=== PATIENT | male | born 1960 | race Caucasian/White ===

== ENCOUNTER 2018-05-09 17:31 | Emergency (ER) | payer OTHER, MEDICAID ==
[2018-05-09 17:46] VITALS: BP 138/42
--- NOTE | 2018-05-09 19:36 | EDPHY ---
H & P Stated Complaint: pt dialysis pt has open ulcer l foot/sent for admission Time Seen by Provider: 05/09/18 19:23 HPI/ROS: CHIEF COMPLAINT: "Those witch doctors at [facility] suck" HISTORY OF PRESENT ILLNESS: 57-year-old male history of diabetes, chronic renal disease, Saturday dialysis, complaining of several months of chronic left heel wound. States that he is admitted at [facility] few weeks ago but left against medical advice because he did not like the care he was receiving. He went to his dialysis appointment today informs me that the staff they recommend he come to the ER for admission. Today is Saturday. He has a new patient wound care appointment with Dr. Naz Steven on Saturday. REVIEW OF SYSTEMS: 10 systems reviewed and negative with the exception of the elements mentioned in the history of present illness PAST MEDICAL & SURGICAL HISTORY: diabetes. Chronic renal disease. Saturday SOCIAL HISTORY: Nonsmoker PHYSICAL EXAM (Prior to examination, patient consented to physical exam, hands were washed and my usual and customary physical exam procedures followed) 1) GENERAL: Well-developed, well-nourished, alert and oriented. Appears to be in no acute distress. 2) HEAD: Normocephalic, atraumatic 3) HEENT: Pupils equal, round, reactive to light bilaterally. Sclera anicteric. Nasopharynx, oropharynx, clear, no lesions. 4) NECK: Full range of motion, no meningeal signs. 5) LUNGS: Clear auscultation bilaterally, no wheezes, no rhonchi, no retractions. 6) HEART: Regular rate and rhythm, no murmur, no heave, no gallop. 7) ABDOMEN: No guarding, no rebound, no focal tenderness, negative McBurney's, negative Dee's, negative Rovsing's, negative peritoneal sign, 8) MUSCULOSKELETAL: Moving all extremities, no focal areas of tenderness, no obvious trauma. No peripheral edema or discoloration. 9) BACK: No CVA tenderness, no midline vertebral tenderness, no fluctuance, no step-off, no obvious trauma, no visual or palpable abnormality. 10) SKIN: No rash, no petechiae. 11) Psychiatric: Patient is oriented X 3, there is no agitation. DIFFERENTIAL DIAGNOSIS: In no particular order including but not limited to cellulitis, necrotizing fasciitis, osteomyelitis, - Personal History Current Tetanus Diphtheria and Acellular Pertussis (TDAP): Yes - Medical/Surgical History Hx Asthma: No Hx Chronic Respiratory Disease: Yes Hx Diabetes: No Hx Cardiac Disease: Yes Hx Renal Disease: Yes Hx Cirrhosis: No Hx Alcoholism: No Hx HIV/AIDS: No Hx Splenectomy or Spleen Trauma: No Other PMH: cardiac bypass/renal failure/blind - Social History Smoking Status: Current every day smoker Constitutional: Initial Vital Signs Temperature (C) 36.6 C 05/09/18 17:42 Heart Rate 81 05/09/18 17:42 Respiratory Rate 18 05/09/18 17:42 Blood Pressure 138/42 H 05/09/18 17:42 O2 Sat (%) 95 05/09/18 17:42 O2 Delivery Mode Room Air Allergies/Adverse Reactions: No Known Allergies Allergy (Unverified 05/09/18 17:41) Home Medications: Medication Instructions Recorded Albuterol 05/09/18 Atorvastatin Calcium 05/09/18 Carvedilol 05/09/18 Gabapentin 05/09/18 Glipizide 05/09/18 Lisinopril 05/09/18 Nitroglycerin 05/09/18 Phoslyra 05/09/18 Sertraline HCl 05/09/18 traZODone 05/09/18 Medical Decision Making ED Course/Re-evaluation: 7:56 p.m.: Patient was also seen exam by Dr. Adrianna Fernández in the ER. He has a chronic wound to his left heel which does not appear to be acutely infected. There is no crepitus or cellulitic changes. Doubt necrotizing fasciitis. He is able to bear weight. He is hemodynamically stable, afebrile denies flu-like symptoms. At this time I do not identify indication for hospital admission. I do not identify indication for antibiotics as there is no sign I have recommended he follow up with Dr. Naz Steven on Saturday (today is Saturday) for his wound care appointment. My Usual and customary discharge precautions and instructions provided Departure - Departure Disposition: Home, Routine, Self-Care Clinical Impression: Chronic wound left heel Condition: Good Instructions: Chronic Wounds (ED) Additional Instructions: Return to the ER if you develop redness, swelling, discharge, warmth to the wound, red streaks going up your leg, or any other symptoms that concern you. Referrals: Naz Steven MD [Medical Doctor] - 05/12/18 (Keep your appointment with Dr. Naz Steven on Saturday)
== END 2018-05-09 20:41 | disposition home or self-care (01) ==
DX: S91.302A Unspecified open wound, left foot, initial encounter (principal); E11.9 Type 2 diabetes mellitus without complications; N18.9 Chronic kidney disease, unspecified; Z99.2 Dependence on renal dialysis

== ENCOUNTER 2018-05-14 10:59 | Inpatient (IN) | payer OTHER, MEDICAID ==
--- NOTE | 2018-05-14 11:58 | EDPHY ---
H & P Stated Complaint: l foot ulcer states wassent for abx admission Source: Patient, Old records Exam Limitations: No limitations - Personal History Current Tetanus Diphtheria and Acellular Pertussis (TDAP): Yes - Medical/Surgical History Hx Asthma: No Hx Chronic Respiratory Disease: Yes Hx Diabetes: No Hx Cardiac Disease: Yes Hx Renal Disease: Yes Hx Cirrhosis: No Hx Alcoholism: No Hx HIV/AIDS: No Hx Splenectomy or Spleen Trauma: No Other PMH: cardiac bypass/renal failure/blind. dialysis - Social History Smoking Status: Current every day smoker Time Seen by Provider: 05/14/18 11:58 HPI/ROS: HPI: This is a 57-year-old male who presents with Chief Complaint: Left foot ulcer Location: Left foot Quality: Ulcer Duration: Several weeks Signs and Symptoms: No bleeding, no radiation, no numbness, no weakness, no tingling, no incontinence, no decreased range of motion, no swelling, + pain, no fever Timing: Acute Severity: Moderate Context: Patient has a history of diabetes mellitus, chronic renal disease, on dialysis Saturday presents with several month history of chronic left heel ulceration that is nonhealing despite admission at [facility] a few weeks ago and being seen by the wound clinic on Saturday. He also has a wound clinic nurse that comes to his house Saturday, Saturday, Saturday. Patient reports that there is increased pain in his left heel with odor and drainage. He is unable to bear weight on his left foot due to the pain. Had dialysis on Saturday due to wound appointment on Saturday and missing dialysis then. Denies shortness of breath. Modifying Factors: Local wound care Comment: ROS: A comprehensive 10 system review of systems is otherwise negative aside from elements mentioned in the history of present illness. MEDICAL/SURGICAL/SOCIAL HISTORY: Medical history: cardiac bypass/renal failure/blind, dialysis Surgical history: Denies Social history: Current every day smoker. CONSTITUTIONAL: Nontoxic-appearing elderly, tearful white male, awake and alert , no obvious distress HEENT: Atraumatic and normocephalic. NECK: supple Cardiovascular: Normal S1/S2, regular rate, regular rhythm, without murmur rub or gallop. PULMONARY/CHEST: Symmetrical and nontender. Clear to auscultation bilaterally. Good air movement. No accessory muscle usage. ABDOMEN: Soft, nondistended, nontender. EXTREMITIES: 2/2 pedal pulses, strength 5/5, left heel shows approximately 4 in annular macerated; malodorous; ulceration approximately stage 2-3; extremely tender to palpation. Decreased light touch sensation. no deformities, no clubbing, no cyanosis or edema. NEUROLOGICAL: no focal neuro deficits. GCS 15. Light touch sensation intact. SKIN: Warm and dry, no erythema. no rash. Good capillary refill. (Aby Hardy) Constitutional: Initial Vital Signs Temperature (C) 37 C 05/14/18 11:05 Heart Rate 72 05/14/18 11:05 Respiratory Rate 18 05/14/18 11:05 Blood Pressure 121/62 H 05/14/18 11:05 O2 Sat (%) 92 05/14/18 11:05 O2 Delivery Mode Room Air Allergies/Adverse Reactions: No Known Allergies Allergy (Verified 05/14/18 11:04) Home Medications: Medication Instructions Recorded Albuterol [Proventil Inhaler HFA 1 - 2 puffs IH DAILY PRN 05/09/18 (*)] Atorvastatin Calcium [Lipitor 40 40 mg PO DAILY 05/09/18 mg (*)] Calcium Acetate [Phoslyra] 667 mg PO TIDMEAL 05/09/18 Carvedilol [Coreg (*)] 6.25 mg PO BIDMEAL 05/09/18 Gabapentin [Neurontin 300 MG (*)] 300 mg PO BID PRN 05/09/18 Lisinopril [Zestril 10 mg (*)] 10 mg PO DAILY 05/09/18 Nitroglycerin [Nitrostat 0.4 mg 0.4 mg SL Q5M PRN 05/09/18 (*)] Sertraline HCl [Zoloft 50mg (*)] 50 mg PO DAILY 05/09/18 glipiZIDE [Glucotrol] 10 mg PO BID 05/09/18 traZODone [traZODONE 50MG (*)] 50 mg PO HS 05/09/18 Acetaminophen [Tylenol 325mg (*)] 325 mg PO DAILY PRN 05/14/18 Aspirin [Aspirin 81mg (*)] 81 mg PO DAILY 05/14/18 Medical Decision Making ED Course/Re-evaluation: Vital signs obtained and stable. IV access and laboratory studies ordered along with left foot x-ray Given IV morphine 4 mg and 1 g Ancef Reluctant to give vancomycin with end-stage renal disease. ED decision to consult General surgery for IV antibiotics and determine candidacy for debridement. Patient will likely need inpatient admission due to failure of outpatient treatment. X-ray my read shows no signs of osteomyelitis. 1215: Labs reviewed. WBC 15 K with left shift, H&H 7.8/23.2 normocytic type, K 4.1, creatinine 4.3, elevated LFTs 1230: ED decision to consult for admission. Spoke with Dr. León who kindly agrees to admit patient and provide further care. Spoke with hospitalist, Dr. Nagel and Vehicle Fuel Systems Converter, Dr. Treviño, who will consult on the patient. No signs of neurovascular compromise/tenting of skin/compartment syndrome/ extremities and joints examined above and below area of concern and are neurovascularly intact. This patient was seen under the supervision of my secondary supervising physician. I evaluated care for this patient independently. Discussed this patient with Dr. Florentino. (Aby Hardy) Differential Diagnosis: Differential diagnosis includes but is not limited to diabetic ulcer, osteomyelitis, (Aby Hardy) Other Provider: The patient was evaluated and managed by the Physician Junior Java Developer. I discussed the patient's presentation and course with the midlevel provider with them and agree with the evaluation. My co-signature indicates that I have reviewed this chart and I agree with the findings and plan of care as documented. I am the secondary supervising physician. (Jennifer Florentino) - Data Points Laboratory Results: Laboratory Results 05/14/18 13:26 05/14/18 12:55 Medications Given: Atorvastatin Calcium (Lipitor) 40 mg PO DAILY [facility] Stop: 11/11/18 08:59 Last Admin: 05/15/18 08:02 Dose: 40 mg Calcium Acetate (Phoslo) 667 mg PO TIDMEAL [facility] Stop: 11/11/18 07:59 Last Admin: 05/15/18 13:46 Dose: Not Given Carvedilol (Coreg) 6.25 mg PO BIDMEAL [facility] Stop: 11/10/18 17:59 Last Admin: 05/15/18 07:56 Dose: 6.25 mg Hydromorphone HCl (Dilaudid) 0.5 - 1 mg IVP Q2HRS PRN PRN Reason: Pain, Severe Stop: 05/24/18 18:28 Last Admin: 05/15/18 11:37 Dose: 0.5 mg Insulin Human Lispro (Humalog Lispro) 0 unit SC TIDMEAL LAITH PRN Reason: Protocol Stop: 11/10/18 17:59 Last Admin: 05/15/18 13:46 Dose: Not Given Lisinopril (Zestril) 10 mg PO DAILY [facility] Stop: 11/11/18 08:59 Last Admin: 05/15/18 08:02 Dose: 10 mg Morphine Sulfate (Morphine) 1 mg IVP Q4HRS PRN PRN Reason: breakthrough pain Stop: 05/25/18 12:52 Last Admin: 05/15/18 13:28 Dose: 1 mg Nicotine (Nicoderm Cq) 21 mg TD HS [facility] Stop: 11/10/18 20:59 Last Admin: 05/14/18 20:17 Dose: 21 mg Oxycodone HCl (Oxycodone Ir) 5 - 10 mg PO Q3HRS PRN PRN Reason: Pain, Severe Able to Take PO Stop: 05/24/18 18:28 Last Admin: 05/15/18 06:21 Dose: 10 mg Sertraline HCl (Zoloft) 50 mg PO DAILY [facility] Stop: 11/11/18 08:59 Last Admin: 05/15/18 08:02 Dose: 50 mg Trazodone HCl (Trazodone) 50 mg PO HS [facility] Stop: 11/10/18 20:59 Last Admin: 05/14/18 20:30 Dose: 50 mg Discontinued Medications Albuterol (Proventil Neb) 3 ml IH Q10M PRN PRN Reason: PACU, Wheezing Stop: 05/15/18 11:22 Last Admin: 05/15/18 10:25 Dose: 3 ml Bupivacaine HCl (Sensorcaine 0.5% Vial) Confirm Administered Dose 30 ml .ROUTE .STK-MED ONE Stop: 05/15/18 08:44 Last Admin: 05/15/18 09:42 Dose: 30 ml Hydromorphone HCl (Dilaudid) 1 mg IVP EDNOW ONE Stop: 05/14/18 14:21 Last Admin: 05/14/18 14:21 Dose: 1 mg Sodium Chloride (Ns) 1,000 mls @ 0 mls/hr IV ONCE ONE; Wide Open PRN Reason: Protocol Stop: 05/14/18 12:15 Last Admin: 05/14/18 12:42 Dose: 1,000 mls Cefazolin Sodium/Dextrose (Ancef 1 Gm (Premix)) 50 mls @ 200 mls/hr IV EDNOW ONE PRN Reason: Protocol Stop: 05/14/18 14:12 Last Admin: 05/14/18 14:05 Dose: 50 mls Ertapenem 1 gm/ Sodium (Chloride) 100 mls @ 200 mls/hr IV DAILY [facility]ITH PRN Reason: Protocol Stop: 06/13/18 16:44 Last Admin: 05/15/18 08:00 Dose: 100 mls Midazolam HCl (Versed) 2 mg IVP ONCALL ONE Stop: 05/15/18 09:03 Last Admin: 05/15/18 09:10 Dose: 2 mg Miscellaneous Medication (Non-Formulary) 667 ea PO TIDMEAL LAITH Stop: 11/10/18 17:59 Last Admin: 05/14/18 20:30 Dose: Not Given Morphine Sulfate (Morphine) 4 mg IVP EDNOW ONE Stop: 05/14/18 12:21 Last Admin: 05/14/18 13:13 Dose: 4 mg Departure - Departure Disposition: [facility] Acute Clinical Impression: ESRD on dialysis, Elevated LFTs Diabetic ulcer of left foot associated with secondary diabetes mellitus Qualifiers: Diabetic foot ulcer location: heel Non-pressure ulcer stage: with muscle involvement without evidence of necrosis Qualified Code(s): E08.621 - Diabetes mellitus due to underlying condition with foot ulcer Decubitus ulcer of foot, stage 3 Qualifiers: Laterality: left Qualified Code(s): L89.893 - Pressure ulcer of other site, stage 3 Condition: Fair
[2018-05-14] MEDS ORDERED: NS 1,000 ML IV ONE (12:14)
[2018-05-14 13:43] LABS: PLATELET COUNT 480 10^3/uL (150-400)
[2018-05-14] MEDS ORDERED: D50W 25 GM/50 ML SYR IVP PRN (14:18)
[2018-05-14] MEDS ORDERED: HYDROmorphONE/DILAUDID 1 MG/ML INJ ONE (14:18)
[2018-05-14] MEDS ORDERED: ALBUTEROL 60 PUFFS/8 GM MDI IH PRN (14:18)
[2018-05-14] MEDS ORDERED: HYDROmorphONE/DILAUDID 1 MG/ML INJ IVP ONE (14:20)
--- NOTE | 2018-05-14 16:17 | PDCONSULT ---
<Nichole Stoddard - Last Filed: 05/14/18 16:50> Medical Accounts Receivable Specialist Note: CC: Left foot wound HPI 57 y/o male with a complicated history including ESRD on dialysis, COPD, and diabetes presents to the ED d/t unhealing left diabetic foot wound. Hospital medicine team has been asked to consult for his diabetes. This is my first encounter with the patient. He reports months worth of "dealing" with his foot wound with no resolution. + increase in pain and inability to put weight on his left leg. The eschar- appearing wound is on his heel. I did not find it to be odorous or draining. He does have another pressure ulcer on top of the foot which he reports was from his bed. This appears edematous and erythematous, no noted drainage but has the appearance of possible stage 2 ulcer. Denies fevers, chills, diarrhea, N/V. He still has the ability to urinate and reports urinating "buckets." He followed up with Dr. Naz Steven about his wound on Saturday and because he missed his dialysis Saturday, he was dialyzed Saturday. He is here today because the pain has increased and his wound is not healing. In regards to his diabetes, his last A1c was in March 2018 at [facility]. It was 8.2% and the pt reports that is the lowest it has been for him. He is usually in 10-11% range. Past Medical/Surgical History: 1. ESRD (on dialysis, MWF) 2. Glaucoma 3. Blindness (left eye blind, right eye 20% vision) 4. Diabetes 5. CAD 6. Heart Failure 7. MT x 3 (triple bypass in 2013) 8. Hx of CVA x 2 9. Depression 10. Anxiety 11. Nicotine dependence 12. 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 He lives in [place] with a friend who he considers his airplane coverer. He smokes 2 cigarettes/day down from a pack and a half. He has been sober for 6 years. He smokes cannabis as well. Denies any other illicit drug use. One month prior, he had to "pull the plug" on his aunt who was "pretty much my mom." He is visibly emotional. Vital Signs 121/62, 72 HR, 18 Respirations, 37c temperature, 92% RA. ROS 10 pt was reviewed and negative except for what was stated in HPI and below: Constitutional/Subjective: "Stress, all I've got is stress!" EENMT: blindness Cardiac: no symptoms Respiratory: no symptoms Gastrointestinal: no symptoms Genitourinary: no symptoms Muscoloskeletal: no symptoms Skin: lesions Neurological: anxiety, depressed, pre-existing deficit Hematologic/Lymphatic: no symptoms Immunologic/Allergy: NKDA Physical Exam Constitutional: no apparent distress, cooperative, pleasant Eyes: Right eye pupil 3mm, left eye opaque. EOMI. Ears, nose, mouth, throat: moist mucous membranes, ears appear normal, hearing normal Cardiovascular: RR, no murmur, rub or gallop. Peripheral pulses: RLE pedal 2+, LLE pedal 1+, BUE radial 2+ Respiratory: No respiratory distress, no rales or rhonchi, CTAB Gastrointestinal: Normoactive bowel sounds, round soft non-tender Genitourinary: no bladder fullness, tenderness Skin: noted in HPI Musculoskeletal: Full ROM in all extremities Neurologic: Numbness BLE but still has tactile sensation, paresthesia BUE, CN II -XII Psychiatric: A&Ox3, depressed Lymph/Heme/Immunologic: no cervical LAD, no supraclavicular LAD A/P 57 y/o with ESRD, diabetes and extensive vascular history requires assistance with his unhealing foot wound. Normal dialysis schedule is . He was dialyzed yesterday (Saturday) d/t missing his Saturday dialysis. We are following him for diabetes management. Dr. León and Dr. Treviño have been consulted and aware of pt's presence and condition. We will hold glipizide and place him on an insulin scale, which pt is agreement with. Continue to monitor at this time. Awaiting surgical recommendations. Manage pain IV/PO PRN. <Denver Nagel - Last Filed: 05/14/18 21:27> Medical Accounts Receivable Specialist Note: Patient evaluated by myself independently, please see separate note for details. Care plan reviewed with ANGELO Stoddard, agree with her plan as outlined above.
[2018-05-14] MEDS: ERTAPENEM 1 GM in NS 100 ML IV SCH (17:28)
[2018-05-14] MEDS ORDERED: [UNRECOGNIZED DRUG - OTHER] PO SCH (18:00)
[2018-05-14] MEDS ORDERED: CALCIUM ACETATE PO SCH (18:00)
--- NOTE | 2018-05-14 18:18 | GHP ---
DATE OF ADMISSION: 05/14/2018 HISTORY OF PRESENT ILLNESS: Patient is a 57-year-old diabetic male who presents with complaints of s evere pain and nonhealing of a left heel ulceration, which is approximately 3 cm in diameter. He has been treated in multiple wound clinics with very little improvement in the wound and complains of tr emendous pain at this time. He has had no fever. He does have diabetic neuropathy. He does have am azingly good pulses. Admitted at this time because of degradation of the wound and failure to improv e on outpatient therapy. PAST MEDICAL HISTORY: Includes diabetes, end-stage renal disease for which he is on dialysis, glauco ma, blindness, coronary artery disease, congestive heart failure, coronary artery bypass, multiple CO s, history of stroke x2, COPD, depression. FAMILY HISTORY: Noncontributory. MEDICATIONS: Include Lipitor, Proventil, , Coreg, Zestril, Neurontin, aspirin, trazodone, Glucotrol, Zoloft, Nitrostat, and Tylenol. ALLERGIES: None. PHYSICAL EXAMINATION: GENERAL: An alert 57-year-old male in no acute distress. He is afebrile. HE AD/NECK: Reveals no icterus or adenopathy. Pupils are reactive. No oral lesions. No bruits. He i s nearly blind. CARDIAC: Regular rhythm without murmurs. CHEST: Clear to auscultation, percussion . ABDOMEN: Soft, nontender, without masses or organomegaly. GENITOURINARY: Normal. EXTREMITIES: Reveal full range of motion. He has pedal pulses. On his right foot, he has a 3 cm medial posterio r pressure sore, but no bone exposed. He also has a small lesion on the dorsum of his same foot, whi ch is approximately 1-1/2 cm in diameter. NEUROLOGIC: Physiologic. PSYCH: Appears to be alert, or iented, and somewhat cooperative. IMPRESSION: Diabetic neuropathy and peripheral vascular disease with neuropathic ulcer of the right foot over the heel and wound over the dorsum of the foot. PLAN: Admit for hospitalist's evaluation, IV antibiotics, local wound care, and vascular evaluation. /[id number]/MODL
[2018-05-14] MEDS: CARVEDILOL 6.25 MG TAB PO SCH (18:19)
[2018-05-14] MEDS: INSULIN LISPRO 100 UNIT/ML SC SCH (18:19)
[2018-05-14] MEDS ORDERED: ACETAMINOPHEN 325 MG TAB PO PRN (18:29)
[2018-05-14] MEDS ORDERED: HYDROCODONE/APAP 5/325 TAB PO PRN (18:29)
[2018-05-14] MEDS: oxyCODONE IR 5 MG TAB PO PRN ×2 (19:50→21:03)
[2018-05-14] MEDS: NICOTINE 21 MG/24 HR PATCH TD SCH (20:17)
[2018-05-14] MEDS: traZODone 50 MG TAB PO SCH (20:30)
--- NOTE | 2018-05-14 21:04 | GCON ---
DATE OF CONSULTATION: 05/14/2018 REASON FOR CONSULTATION: Opinion regarding end-stage kidney failure. HISTORY OF PRESENT ILLNESS: Mr. Iraheta is a 57-year-old gentleman with end-stage kidney failure due t o diabetes, hypertension, and vascular disease, on 3 times weekly hemodialysis in the [facility] under the care of Dr. Pat Smith. Mr. Iraheta has been at the dialysis unit f or about 5 months. About 5 months ago as he was leaving his home in [place], he fell down a flight of stairs, injuring his right heel. Subsequently, the ulcer grew and has subsequently become infected. He is under the care of Dr. Moreno with Surgery. She asked him to come in for IV antibiotics and po ssible debridement. Mr. Iraheta arrived this morning. His only complaint tonight is that he needs a regular diet and not a renal diet. He has not had feve rs, chills, nausea, vomiting, chest pain. Does have chronic shortness of breath with occasional coug h. No sputum production. No hemoptysis, hematemesis, epistaxis, abdominal pain, diarrhea, constipat ion, melena or hematochezia. He still makes a fair amount of urine. No gross hematuria or dysuria. He dialyzes on Mondays, Wednesdays, and Fridays. CURRENT MEDICATIONS: Include: 1. Coreg 6.25 mg twice daily. 2. Lipitor 40 mg daily. 3. [place] 5/325. 4. Ertapenem 1 g daily. 5. Lisinopril 10 mg daily. 6. Insulin. 7. Gabapentin 300 mg twice daily. 8. Nicoderm 21 mg a day. 9. Zoloft 50 mg a day. 10. Trazodone 50 mg a day. PAST MEDICAL HISTORY: Significant for: 1. End-stage kidney failure, on 3 times weekly dialysis. 2. Diabetes mellitus, type 2 for about 40 years. 3. Hypertension. 4. Blind in his left eye, only about 20% vision in his right. 5. Hyperlipidemia. 6. Coronary artery disease. 7. Status post coronary artery bypass grafting. 8. Congestive heart failure. 9. History of stroke. 10. COPD. 11. Peripheral vascular occlusive disease. ALLERGIES: None. FAMILY HISTORY: Positive for diabetes and coronary artery disease. SOCIAL HISTORY: He is not . He smokes 2 cigarettes a day, down from a pack and half a day, h as not used alcohol for a number of years. Does use occasional cannabis. REVIEW OF SYSTEMS: A complete 12-point review of systems was performed with the pertinent positives and negatives as per the previous sections. PHYSICAL EXAMINATION: VITAL SIGNS: Blood pressure 152/88, pulse 80, respirations 20, temperature is 36.9. GENERAL: He is awake, alert, frustrated and tearful. HEENT: Right pupil is reactive to lig ht. Extraocular movements are intact. Mucous membranes are moist. NECK: No lymphadenopathy or thy romegaly. HEART: Regular, grade 1/6 systolic murmur. No rub. No S3. LUNGS: No rales, rhonchi, o r wheezes. He has decreased air movement in his bases bilaterally. ABDOMEN: Bowel sounds are posit katie. Soft, nontender, nondistended. No obvious organomegaly, masses, or bruits. Chest has a tunnel ed dialysis catheter in his right internal jugular vein. EXTREMITIES: Trace edema. No cyanosis or clubbing. His right foot is wrapped. NEUROLOGIC: No asterixis. SKIN: Changes of arterial and elle ous insufficiency in his lower extremities bilaterally. LYMPH: No palpable lymphadenopathy or lymph edema. MUSCULOSKELETAL: His foot is quite sore. LABORATORY: Serum sodium 134, potassium 4.1, chloride 97, CO2 23, BUN 46, creatinine 4.3, glucose 15 1, calcium 7.9, total bilirubin of 0.8, AST 91, ALT 136, alkaline phosphatase 449, albumin 3.3. WBC 14.97, hemoglobin 7.8, hematocrit 23.2, platelet count 480,000. IMPRESSION: 1. End-stage kidney failure, on 3 times weekly hemodialysis, generally Saturday, Saturday, and Saturday . However, he had his dialysis yesterday. We will plan on Saturday, , and Saturday of this w t[place] & [place]. 2. Foot wound, likely infected. He is on ertapenem a gram daily. With his renal function, probably 500 mg daily would be adequate and decrease the side effect profile. 3. Surgery is following. 4. He wants to be on a regular diet. I think that is fine. He is on a regular diet at home and see ms to do quite well with that. Continue his other therapies. Thank you for allowing me to participate in the care of your patient, Mateusz Iraheta. If there are any questions, please do not hesitate to contact us. We will be following along with you. /[id number]/MODL
--- NOTE | 2018-05-14 21:26 | HOSPPROG ---
Hospitalist Progress Note Assessment/Plan: 57 yo M with hx of DM, ESRD admitted to surgery for DM foot ulcer, medicine consultation at request of Dr. León for evaluation and management of DM and other chronic medical issues # DM left foot ulcer: personally reviewed xray of foot without e/o osteo, admitted to surgical service for likely debridement and IP management of wound, started on ertapenem by surgery and will follow up cultures if patient taken to OR # DM: per patient most recently A1c of 8 recently, currently sugars relatively well controlled, will start SSI and hold oral hypoglycemics given likely need for surgery and NPO status # ESRD: patient currently off his usual schedule of MWF, skipped Saturday due to doctor visit and went Saturday instead, renal consulted # CAD: with hx of ME/CABG, no current chest pain, will resume home meds but hold asa for now in case surgery needed # hx of CVA # copd: without e/o acute exacerbation # anemia: presumably due to anemia of ckd, baseline unknown, will trend # Patient new to my care. Old records reviewed and summarized as above. Care plan reviewed with ANGELO Stoddard, please see her H&P for further details. Objective: Vital Signs Temp Pulse Resp BP Pulse Ox 36.8 C 73 18 159/84 H 90 L 05/14/18 19:52 05/14/18 19:52 05/14/18 19:52 05/14/18 19:52 05/14/18 19:52 05/13/18 05/14/18 05/15/18 05:59 05:59 05:59 Intake Total 1030 Balance 1030 ICD10 Worksheet Patient Problems: Problems Problem Status Onset Diabetic ulcer of left foot associated with secondary diabetes mellitus Acute Decubitus ulcer of foot, stage 3 Acute ESRD on dialysis Acute Elevated LFTs Acute
[2018-05-15 04:54] LABS: PLATELET COUNT 504 10^3/uL (150-400)
[2018-05-15] MEDS: oxyCODONE IR 5 MG TAB PO PRN (06:21)
[2018-05-15] MEDS: CARVEDILOL 6.25 MG TAB PO SCH ×2 (07:56→18:46)
[2018-05-15] MEDS: INSULIN LISPRO 100 UNIT/ML SC SCH ×3 (07:56→18:48)
[2018-05-15] MEDS: CALCIUM ACETATE 667 MG CAP PO SCH ×3 (07:56→18:48)
[2018-05-15] MEDS: ERTAPENEM 1 GM in NS 100 ML IV SCH (08:00)
[2018-05-15] MEDS: LISINOPRIL 10 MG TAB PO SCH (08:02)
[2018-05-15] MEDS: SERTRALINE HCL 50 MG TAB PO SCH (08:02)
[2018-05-15] MEDS: ATORVASTATIN CALCIUM 40 MG TAB PO SCH (08:02)
[2018-05-15] MEDS ORDERED: BUPIVACAINE 0.5% 30 ML SDV ONE (08:43)
[2018-05-15] MEDS ORDERED: NICOTINE 21 MG/24 HR PATCH TD SCH (09:00)
[2018-05-15] MEDS ORDERED: MIDAZOLAM 2 MG/2 ML VIAL IVP ONE (09:02)
[2018-05-15] MEDS ORDERED: MIDAZOLAM 2 MG/2 ML VIAL ONE (09:05)
[2018-05-15] MEDS ORDERED: PROPOFOL 200 MG/20 ML VIAL ONE (09:10)
[2018-05-15] MEDS ORDERED: fentaNYL 250 MCG/5 ML INJ ONE (09:10)
[2018-05-15] MEDS ORDERED: DEXAMETHASONE 4 MG/ML VIAL ONE (09:29)
[2018-05-15] MEDS ORDERED: LIDOCAINE 2% 5 ML SDV ONE (09:29)
[2018-05-15] MEDS ORDERED: ONDANSETRON 4 MG/2 ML VIAL ONE (09:29)
--- NOTE | 2018-05-15 09:39 | PDANEPAE ---
ANE Past Medical History - Cardiovascular History Hx Hypertension: Yes Hx Arrhythmias: No Hx Chest Pain: Yes Hx Coronary Artery / Peripheral Vascular Disease: Yes Hx CHF / Valvular Disease: Yes - Pulmonary History Hx COPD: Yes Hx Asthma/Reactive Airway Disease: No Hx Recent Upper Respiratory Infection: No Hx Oxygen in Use at Home: Yes O2 in Use at Home (L/minute): 2 Hx Sleep Apnea: No Sleep Apnea Screening Result - Last Documented: Positive - Endocrine History Hx Diabetes: Yes Hypothyroid: No Hyperthyroid: No Obesity: yes, moderate Endocrine History Comment: DM type II - Renal History Hx Renal Disorders: Yes Renal History Comment: ESRD on dialysis 3 times/week. Last dialysed 2 days ago - Liver History Hx Hepatic Disorders: Yes Hepatic History Comment: elevated LFTs - Chronic Pain History Chronic Pain: No ANE Review of Systems Review of Systems: ANE Patient History - Allergies Allergies/Adverse Reactions: No Known Allergies Allergy (Verified 05/14/18 11:04) - Home Medications Home Medications: Albuterol [Proventil Inhaler HFA (*)] 1 - 2 puffs IH DAILY PRN 05/09/18 [Last Taken Unknown] Atorvastatin Calcium [Lipitor 40 mg (*)] 40 mg PO DAILY 05/09/18 [Last Taken ] Calcium Acetate [Phoslyra] 667 mg PO TIDMEAL 05/09/18 [Last Taken 05/13/18 18:00 ] Carvedilol [Coreg (*)] 6.25 mg PO BIDMEAL 05/09/18 [Last Taken 05/13/18 18:00] Gabapentin [Neurontin 300 MG (*)] 300 mg PO BID PRN 05/09/18 [Last Taken ] Lisinopril [Zestril 10 mg (*)] 10 mg PO DAILY 05/09/18 [Last Taken 05/14/18] Nitroglycerin [Nitrostat 0.4 mg (*)] 0.4 mg SL Q5M PRN 05/09/18 [Last Taken Unknown] Sertraline HCl [Zoloft 50mg (*)] 50 mg PO DAILY 05/09/18 [Last Taken 05/13/18] glipiZIDE [Glucotrol] 10 mg PO BID 05/09/18 [Last Taken 05/13/18 21:00] traZODone [traZODONE 50MG (*)] 50 mg PO HS 05/09/18 [Last Taken 05/13/18] Acetaminophen [Tylenol 325mg (*)] 325 mg PO DAILY PRN 05/14/18 [Last Taken Unknown] Aspirin [Aspirin 81mg (*)] 81 mg PO DAILY 05/14/18 [Last Taken 05/13/18] - NPO status NPO Since - Liquids (Date): 05/15/18 NPO Since - Liquids (Time): 08:00 NPO Since - Solids (Date): 05/14/18 NPO Since - Solids (Time): 01:00 - Smoking Hx Smoking Status: Current every day smoker ANE Labs/Vital Signs - Labs Result Diagrams: 05/15/18 04:18 05/15/18 04:18 - Vital Signs Blood Pressure: 159/100 Heart Rate: 72 Respiratory Rate: 20 O2 Sat (%): 96 Height: 172.72 cm Weight: 90 kg ANE Physical Exam - Airway Neck exam: decreased ROM Mallampati Score: Class 2 Mouth exam: poor dentition - Pulmonary Pulmonary: reduced air movement - Cardiovascular Cardiovascular: regular rate and rhythym - ASA Status ASA Status: III ANE Anesthesia Plan Anesthesia Plan: general endotracheal anesthesia Urgent/Emergent Case: Delmis blanco completed preop but documented later for safe timely pt care
[2018-05-15] MEDS ORDERED: ePHEDrine SULFATE 25 MG/5 ML SYR ONE (09:47)
[2018-05-15] MEDS ORDERED: SUGAMMADEX SODIUM 200 MG/2 ML VIAL IVP ONE (10:01)
[2018-05-15] MEDS ORDERED: ONDANSETRON 4 MG/2 ML VIAL IVP PRN (10:15)
[2018-05-15] MEDS ORDERED: PROMETHAZINE HCL 25 MG/ML INJ IVP PRN (10:15)
[2018-05-15] MEDS ORDERED: NALOXONE HCL 0.4 MG/ML INJ IVP PRN (10:15)
[2018-05-15] MEDS ORDERED: fentaNYL 100 MCG/2 ML INJ IVP PRN (10:15)
[2018-05-15] MEDS ORDERED: LABETALOL HCL 20 MG/4 ML INJ IVP PRN (10:15)
--- NOTE | 2018-05-15 10:15 | POSTANESTH ---
Post Anesthetic Evaluation Cardiovascular Status: Normal, Stable Respiratory Status: Similar to Pre-op Cond. Level of Consciousness/Mental Status: Can Participate in Eval Pain Control: Adequate, Prn Tx Ordered Nausea/Vomiting Control: Adequate, Prn Tx Ordered Complications Possibly Related to Anesthesia: None Noted
[2018-05-15] MEDS ORDERED: IPRATROPIUM/ALBUTEROL 3 ML DEYVIAL IH PRN (10:17)
[2018-05-15] MEDS ORDERED: ALBUTEROL 3 ML DEYVIAL ONE (10:17)
[2018-05-15] MEDS ORDERED: ALBUTEROL 3 ML DEYVIAL IH PRN (10:43)
--- NOTE | 2018-05-15 10:49 | POSTOPPROG ---
Post Op Note Date of Operation: 05/15/18 Surgeon: Alejandro Miranda Anesthesiologist: Glory Anesthesia: GET(General Endotracheal) Pre-op Diagnosis: L heel wound Post-op Diagnosis: same Procedure: I&D of L heel wound Findings: wound goes down to bone, measues 6x6cm Inf/Abcess present in the surg proc area at time of surgery?: Yes Depth: Deep Incisional (Fascial) EBL: Minimal Total fluids administered: 3L washout Specimen(s): tissue taken for culture
[2018-05-15] MEDS: HYDROmorphONE/DILAUDID 1 MG/ML INJ IVP PRN (11:37)
--- NOTE | 2018-05-15 12:22 | HOSPPROG ---
Hospitalist Progress Note Assessment/Plan: 57 yo M with hx of DM, ESRD admitted to surgery for DM foot ulcer, medicine consultation at request of Dr. León for evaluation and management of DM and other chronic medical issues. First encounter, chart reviewed. Reviewed his care with Dr Wilkinson and Dr Valente. * DM left foot ulcer: -x ray shows no osteo -s/p I & D - wound goes to the bone 6 x 6cm -Ertapenem -will ask Dr Valente to see *pain due to recent surgery -will add morphine *acute hypoxemia -to get dialysis today, could be fluid overloaded -will get a chest x ray *leukocytosis *DM -recent A1c of 8 -sliding scale -hold oral glycemics for now *ESRD -nephrology seeing *CAD -hx of IA, CABG -holding asa for now *COPD -no acute exacerbation *anemia -from chronic disease *hx of CVA *plan: get a chest x ray, appreciate Dr Valente seeing Mateusz, order morphine for pain. Subjective: Mateusz said his left foot is causing signficant pain. Objective: Vital Signs Temp Pulse Resp BP Pulse Ox 36.8 C 70 20 147/77 H 97 05/15/18 11:16 05/15/18 11:16 05/15/18 11:16 05/15/18 11:16 05/15/18 11:16 Laboratory Results 05/15/18 04:18 05/15/18 04:18 05/14/18 05/15/18 05/16/18 05:59 05:59 05:59 Intake Total 1030 450 Output Total 20 Balance 1030 430 - Physical Exam Constitutional: appears nourished, chronically ill appearing, uncomfortable, No not in pain Eyes: PERRL Ears, Nose, Mouth, Throat: hearing normal Cardiovascular: regular rate and rhythym Respiratory: no respiratory distress, reduced air movement Skin: warm Musculoskeletal: generalized weakness Neurologic: AAOx3 Psychiatric: interacting appropriately, not encephalopathic ICD10 Worksheet Patient Problems: Problems Problem Status Onset Decubitus ulcer of foot, stage 3 Acute Diabetic ulcer of left foot associated with secondary diabetes mellitus Acute ESRD on dialysis Acute Elevated LFTs Acute
--- NOTE | 2018-05-15 12:26 | SOAPPROG ---
SOAP Progress Note Assessment/Plan: Assessment: ESRD on TIW HD in [place] infected foot HTN reasonable control DM, bs oK today Plan: HD today next HD Saturday, tomorrow if planning on dismissal tomorrow pain control wound care antibiotics 05/15/18 12:22 Subjective: foot hurts no cp sob nausea or vomiting frustrated appetite OK not sleeping well due to pain in foot operation reviewed with patient Objective: Vital Signs Temp Pulse Resp BP Pulse Ox 36.8 C 70 20 147/77 H 97 05/15/18 11:16 05/15/18 11:16 05/15/18 11:16 05/15/18 11:16 05/15/18 11:16 Laboratory Results 05/15/18 04:18 05/15/18 04:18 05/14/18 05/15/18 05/16/18 05:59 05:59 05:59 Intake Total 1030 450 Output Total 20 Balance 1030 430 Physical Exam - Physical Exam General Appearance: alert Neck: normal inspection Respiratory: No rhonchi, No wheezing Cardiac/Chest: regular rate, rhythm, edema, No friction rub Abdomen: normal bowel sounds, non-tender, soft Skin: warm/dry Extremities: swelling Neuro/Psych: alert, oriented x 3 ICD10 Worksheet Patient Problems: Problems Problem Status Onset Decubitus ulcer of foot, stage 3 Acute Diabetic ulcer of left foot associated with secondary diabetes mellitus Acute ESRD on dialysis Acute Elevated LFTs Acute
[2018-05-15] MEDS ORDERED: PIPERACILLIN/TAZO 2.25 GM/DEX 50 ML IV SCH (13:15)
--- NOTE | 2018-05-15 14:08 | GCON ---
INFECTIOUS DISEASE CONSULTATION DATE OF CONSULTATION: 05/15/2018 REFERRING PHYSICIAN: Sabrina Townsend NP REASON FOR CONSULTATION: Left-sided diabetic foot infection. HISTORY OF PRESENT ILLNESS: The patient is a 57-year-old male with a past medical history of diabete s mellitus and end-stage renal disease on hemodialysis, who I am asked to see in consultation for a l eft diabetic foot infection. The patient describes injuring his foot in approximately November when he f ell on some stairs. He subsequently has had a sore over the left calcaneal region for which he has s een his primary care physician as well as a W[facility] Center. He notes that when he was followed up in Wound Care that antibiotics were discontinued and that he was treated supportively. He noted per sistent nonhealing of his wound. The patient was seen at [facility] on 2017, at which point in time he was noted to have a 6 x 6 cm wound over the left calcaneus with visua lization of the Achilles tendons. Margins were noted to be irregular with surrounding erythema. Rec ommendations were made for patient to be admitted to the hospital, which he declined in order to main tain his dialysis schedule. He subsequently returned to the hospital for admission yesterday and und erwent debridement of the left calcaneal wound earlier today. Wound was noted to track down to bone with measurements of 6 x 6 cm. Bone was noted to be firm without any soft qualities. Soft tissues w ere felt to have associated infection with some necrotic areas present which were debrided. Gram sta in of the soft tissue showed 4+ gram-positive cocci, 3+ gram-positive rods, 2+ gram-negative rods, an d 3+ white blood cells with culture currently pending. Plain film of the foot did not show any evide nce of erosive price changer the calcaneus. The patient was started empirically on ertapenem at time o f his admission yesterday. The patient describes having a fever to 102 approximately 1 week ago, but has not had fever subsequently. He has chronic nausea associated with his dialysis. Given the abov e findings, I am now asked to assist in his ongoing management. PAST MEDICAL HISTORY: End-stage renal disease, on dialysis 3 times per week, glaucoma and blindness, diabetes mellitus, coronary artery disease, heart failure, myocardial infarction, stroke, depression , anxiety, COPD with chronic oxygen use. PAST SURGICAL HISTORY: Coronary artery bypass grafting. CURRENT MEDICATIONS: Ertapenem 1 g IV daily, albuterol inhaler, duo nebs as needed, Lipitor 40 mg p. o. daily, PhosLo 667 mg p.o. three times daily, Coreg 6.25 mg p.o. twice daily, Neurontin 300 mg p.o. twice daily as needed, Humalog insulin with meals, lisinopril 10 mg p.o. daily, morphine as needed f or breakthrough pain, Nicoderm CQ 21 mg patch applied daily, Zoloft 50 mg p.o. daily. ALLERGIES: No known drug allergies. SOCIAL HISTORY: Patient smokes 1 to 2 cigarettes daily. No alcohol use. No other drug use other th an he does use marijuana. FAMILY HISTORY: Coronary artery disease, diabetes mellitus. REVIEW OF SYSTEMS: Outside that noted in the HPI, the remainder of 10-system review is unremarkable. PHYSICAL EXAMINATION: VITAL SIGNS: Temperature 36.6, heart rate 69, respiratory rate 18, blood pres sure 163/81. GENERAL: Patient is well nourished, well developed, no acute distress. He appears non toxic. HEENT: There is no scleral icterus, conjunctival injection, or conjunctival petechiae. Orop harynx shows moist mucous membranes. No sinus tenderness. No nasal discharge. NECK: Supple withou t palpable lymphadenopathy or thyromegaly. CHEST: Bibasilar crackles present. Respiratory effort i s normal. CARDIOVASCULAR: Regular rate and rhythm with a 2/6 systolic murmur heard at the left righ t upper sternal borders. ABDOMEN: Soft, nontender, nondistended. No palpable organomegaly. Bowel sounds are present. MUSCULOSKELETAL: There is 1+ edema left lower extremity. The left foot is dres sed postoperatively from earlier today with blood present on the base of the calcaneal region; there is no cellulitis above the dressing margin; there is mild hyperemia over the anterior walker. NEUROLOG IC: Patient is alert and interacts appropriately with the examiner. Cranial nerves 2-12 are grossly intact. Muscle tone and bulk are normal. LYMPHATICS: No cervical or supraclavicular nodes. No pa in or lymphangitis in the left thigh. LABORATORY DATA: White blood cell count 14.7, hematocrit 24.0, platelets 504, neutrophils 82%. Seru m creatinine 4.3, AST 91, ALT 136, alkaline phosphatase 449, bilirubin 0.8, albumin 3.3 Gram stain of the patient's tissue obtained at time of surgical debridement showing 4+ GPC, 3+ gram-positive rods, 2+ gram-negative katherine, 3+ white blood cells with culture pending. Foot x-ray shows no erosive price changer calcaneus. IMPRESSION: 1. Left diabetic foot infection with associated chronic calcaneal ulceration: Gram stain from the o perative specimen is polymicrobial, which is not unusual in the setting of chronic ulceration. Patie nt is at risk for methicillin-resistant Staphylococcus aureus given chronic dialysis. Gram negative danilo such as Pseudomonas also a possibility. Anaerobes also would be of consideration. Intraoperat ively, the patient's bone was noted to be firm and no evidence of erosive change was noted on x-ray, which would be expected in the setting of osteomyelitis given chronicity of wound. RECOMMENDATIONS: 1. Vancomycin 1.5 g IV x1. 2. Zosyn 2.25 g IV q.12 hours. 3. Discontinue ertapenem. 4. Follow up cultures as available. Modification of antibiotic therapy accordingly. 5. Duration of antibiotics depending on clinical findings over time. Thank you for this consultation. We will continue to follow the patient with you. /[id number]/SHAYYL
--- NOTE | 2018-05-15 14:57 | ASMTCMCOM ---
CM Note CM Note Notes: Per chart review: Pt admitted for left foot ulcer requiring surgical debridement. Pt has had the foot wound since about November after he fell down some stairs. Pt has failed outpatient treatment options. Pt was seen by [facility] on 05/12/18 and is being followed by [facility]. Pt's PMH includes DM, ESRD (pt usually receives HD on MWF at [facility]), CVA x2, multiple PA's, CAD, CABG, CHF, COPD, glaucoma and blindness, depression, anxiety, and chronic home O2 use. Pt receiving IV abx, awaiting cultures for possible treatment modification. Pt lives with a friend who he considers a child protective services social worker. Exact DC needs MARY ANN BOWLING to follow. Date Signed: 05/15/2018 02:56 PM Electronically Signed By:Maia Ayala RN
--- NOTE | 2018-05-15 18:24 | GOP ---
DATE OF OPERATION: 05/15/2018 SURGEON: Alejandro Miranda MD MANAGER CASH: None. ANESTHESIA: General endotracheal. ANESTHESIOLOGIST: Dr. Kenny Holder. PREOPERATIVE DIAGNOSIS: Left foot infection. POSTOPERATIVE DIAGNOSIS: Left foot infection. PROCEDURE PERFORMED: Incision and drainage of left foot infection, measuring 6 x 6 cm down to bone. FINDINGS: A lot of necrotic tissue. No armand purulence was identified. The wound did track down to bone. The bone did feel firm and not soft. After debridement and washout, the wound was successfully packed. SPECIMENS: Tissue for culture. ESTIMATED BLOOD LOSS: 20 cc. DESCRIPTION OF PROCEDURE: The patient was greeted in the preoperative suite. Once again, risks, benefits, and alternatives were discussed. Consent was signed. He was then brought back to the operative suite and placed on the OR table in supine position. After all anesthesia machines including SCDs were on and functioning, a world [employer] time-out was performed. After successful induction of general anesthesia, the patient's left lower leg was prepped and draped in typical sterile fashion. I commenced the procedure by first clearly removing the necrotic tissue from the heel. This did spread out to some of the skin undermining, about a centimeter circumferentially. I sharply took this all down to the calcaneus bone. The bone was solid. It did not appear soft. I did take a portion of the tissue for culture. The entire wound measured 6 x 6 cm and did go down to the calcaneus. Hemostasis was achieved with electrocautery and gentle pressure. After hemostasis, the wound was packed with iodoform gauze, ABD, and wrapped with Kerlix. The patient was then extubated in the operative suite and taken to PACU in satisfactory condition. All counts were reported as correct x2. DRAINS: None. /[id number]/MODL MTDD
[2018-05-15] MEDS ORDERED: HEPARIN 50,000 UNIT/10 ML VIAL ONE (19:02)
[2018-05-15] MEDS ORDERED: VANCOMYCIN 1.5 GM in D5W 250 ML IV ONE (20:00)
[2018-05-15] MEDS: PIPERACILLIN/TAZO 2.25 GM/DEX 50 ML IV SCH (20:10)
[2018-05-15] MEDS: traZODone 50 MG TAB PO SCH (21:11)
[2018-05-15] MEDS: NICOTINE 21 MG/24 HR PATCH TD SCH (21:11)
[2018-05-16 05:06] LABS: PLATELET COUNT 534 10^3/uL (150-400)
[2018-05-16] MEDS: oxyCODONE IR 5 MG TAB PO PRN ×4 (07:38→20:49)
[2018-05-16] MEDS: CALCIUM ACETATE 667 MG CAP PO SCH ×3 (07:39→17:48)
[2018-05-16] MEDS: CARVEDILOL 6.25 MG TAB PO SCH ×2 (07:39→17:48)
[2018-05-16] MEDS: PIPERACILLIN/TAZO 2.25 GM/DEX 50 ML IV SCH ×3 (07:45→23:19)
[2018-05-16] MEDS: INSULIN LISPRO 100 UNIT/ML SC SCH ×3 (09:55→17:52)
--- NOTE | 2018-05-16 10:00 | SOAPPROG ---
SOAP Progress Note Assessment/Plan: Assessment: 57yo s/p L heel debridement - he looks good - I took the dressing down, the foot looks good. - his WBC is still 14k, on vanc and zosyn which is likely covering both bugs growing from cx - PT/OT Plan: 05/16/18 09:58 05/16/18 09:59 Subjective: feeling well, pain is controlled Objective: Vital Signs Temp Pulse Resp BP Pulse Ox 36.8 C 73 16 159/73 H 96 05/16/18 07:42 05/16/18 07:42 05/16/18 07:42 05/16/18 07:42 05/16/18 07:42 Microbiology 05/15/18 09:39 Gram Stain - Final Foot - Tissue Laboratory Results 05/16/18 04:15 05/16/18 04:15 05/15/18 05/16/18 05/17/18 05:59 05:59 05:59 Intake Total 1030 700 Output Total 20 Balance 1030 680 ICD10 Worksheet Patient Problems: Problems Problem Status Onset Decubitus ulcer of foot, stage 3 Acute Diabetic ulcer of left foot associated with secondary diabetes mellitus Acute ESRD on dialysis Acute Elevated LFTs Acute
[2018-05-16] MEDS: LISINOPRIL 10 MG TAB PO SCH (10:22)
[2018-05-16] MEDS: ATORVASTATIN CALCIUM 40 MG TAB PO SCH (10:22)
[2018-05-16] MEDS: SERTRALINE HCL 50 MG TAB PO SCH (10:22)
--- NOTE | 2018-05-16 12:08 | SOAPPROG ---
SOAP Progress Note Assessment/Plan: Assessment: ESRD on TIW HD in , HD yesterday, HD tomorrow infected foot, s/p debridement, on ABX per ID HTN reasonable control DM, bs oK today pain, working on getting better control Plan: HD today next HD Saturday pain control wound care antibiotics 05/15/18 12:22 05/16/18 12:05 Subjective: slept better last night still with foot pain today no cp sob nausea or vomiting appetite OK Objective: Vital Signs Temp Pulse Resp BP Pulse Ox 36.9 C 71 16 143/69 H 89 L 05/16/18 11:34 05/16/18 11:34 05/16/18 11:34 05/16/18 11:34 05/16/18 11:34 Microbiology 05/15/18 09:39 Gram Stain - Final Foot - Tissue Laboratory Results 05/16/18 04:15 05/16/18 04:15 05/15/18 05/16/18 05/17/18 05:59 05:59 05:59 Intake Total 1030 700 Output Total 20 Balance 1030 680 Physical Exam - Physical Exam General Appearance: alert Neck: normal inspection Respiratory: No rhonchi, No wheezing, No pleural rub Cardiac/Chest: regular rate, rhythm, edema, systolic murmur, No friction rub Abdomen: normal bowel sounds, non-tender, soft Skin: warm/dry Extremities: other (foot wrapped) Neuro/Psych: alert, normal mood/affect, oriented x 3 ICD10 Worksheet Patient Problems: Problems Problem Status Onset Decubitus ulcer of foot, stage 3 Acute Diabetic ulcer of left foot associated with secondary diabetes mellitus Acute ESRD on dialysis Acute Elevated LFTs Acute
--- NOTE | 2018-05-16 13:38 | PDMN ---
Medical Necessity Medical necessity: [id number] [place]: Surgical Wound Care: 57 yo w/ severe pain and nonhealing Left heel ulceration, admit to IP for degradation of wound and failure to improve on outpatient therapy. Wound goes to bone s/p I&D 6x6cm, ID consult. Pt admit to IP for management of wound, IP status for ongoing IV antibx , IV opioids for pain management and wound care. Initial tissue cx show pseudomonas and strep B. Hx DM, CHF, CAD, CABG, Multi MIs, strokex2, COPD, ESRD on dialysis
--- NOTE | 2018-05-16 14:07 | HOSPPROG ---
Hospitalist Progress Note Assessment/Plan: 57 yo M with hx of DM, ESRD admitted to surgery for DM foot ulcer, medicine consultation at request of Dr. León for evaluation and management of DM and other chronic medical issues. * DM left foot ulcer: -x ray shows no osteo -s/p I & D - wound goes to the bone 6 x 6cm -pseudomonas -Neftaly, appreciate Dr Valente *nausea -frequent when he gets dialysis -uses Cannibis in the OP setting to help w this, Marinol ordered *pain due to recent surgery -on Oxy -will add morphine *acute hypoxemia -improved w getting dialysis *leukocytosis *DM -recent A1c of 8 -sliding scale -hold oral glycemics for now *ESRD -nephrology seeing *CAD -hx of [place], CABG -resume aspirin *COPD -no acute exacerbation *anemia -from chronic disease *hx of CVA *plan:start Marinol, resume aspirin Subjective: Lamonte is upset about getting dialysis on the same day he had surgery but understood why this was done. Objective: Vital Signs Temp Pulse Resp BP Pulse Ox 36.9 C 71 16 143/69 H 89 L 05/16/18 11:34 05/16/18 11:34 05/16/18 11:34 05/16/18 11:34 05/16/18 11:34 Microbiology 05/15/18 09:39 Gram Stain - Final Foot - Tissue Laboratory Results 05/16/18 04:15 05/16/18 04:15 05/15/18 05/16/18 05/17/18 05:59 05:59 05:59 Intake Total 1030 700 Output Total 20 Balance 1030 680 - Physical Exam Constitutional: appears nourished, uncomfortable Eyes: PERRL Ears, Nose, Mouth, Throat: hearing normal Respiratory: no respiratory distress Skin: warm Musculoskeletal: generalized weakness Neurologic: AAOx3 Psychiatric: agitated ICD10 Worksheet Patient Problems: Problems Problem Status Onset Decubitus ulcer of foot, stage 3 Acute Diabetic ulcer of left foot associated with secondary diabetes mellitus Acute ESRD on dialysis Acute Elevated LFTs Acute
--- NOTE | 2018-05-16 15:00 | PCMIDPN ---
Assessment/Plan: Assessment/Plan: * Left diabetic foot infection with nonhealing calcaneal wound: Operative cultures are showing growth of Pseudomonas aeruginosa and group B Streptococcus. Will increase Zosyn from Q 12 to q.8 hours based on isolation of Pseudomonas. This will also provide activity against group B Streptococcus. Await susceptibility on pseudomonal isolate. No further Vanco required based on current culture findings. 05/16/18 14:57 Subjective: Patient complains of left heel pain. Breathing feels easier today. Objective: Vital Signs Temp Pulse Resp BP Pulse Ox 36.9 C 71 16 143/69 H 89 L 05/16/18 11:34 05/16/18 11:34 05/16/18 11:34 05/16/18 11:34 05/16/18 11:34 Microbiology 05/15/18 09:39 Gram Stain - Final Foot - Tissue Laboratory Results 05/16/18 04:15 05/16/18 04:15 05/15/18 05/16/18 05/17/18 05:59 05:59 05:59 Intake Total 1030 700 Output Total 20 Balance 1030 680 Zosyn # 1 Foot cultures with growth of Pseudomonas aeruginosa and group B Streptococcus - Physical Exam General Appearance: alert, no apparent distress, non-toxic EENT: No scleral icterus Respiratory: lungs clear, No respiratory distress Cardiac/Chest: regular rate, rhythm Extremities: inflammation (Left heel ulceration without necrosis or purulence; no surrounding cellulitis) Abdomen: non-tender ICD10 Worksheet Patient Problems: Problems Problem Status Onset Decubitus ulcer of foot, stage 3 Acute Diabetic ulcer of left foot associated with secondary diabetes mellitus Acute ESRD on dialysis Acute Elevated LFTs Acute
[2018-05-16] MEDS: DRONABINOL 2.5 MG CAP PO SCH ×2 (15:10→20:35)
[2018-05-16] MEDS: NICOTINE 21 MG/24 HR PATCH TD SCH (20:36)
[2018-05-16] MEDS: traZODone 50 MG TAB PO SCH (20:38)
[2018-05-16] MEDS: GABAPENTIN 300 MG CAP PO PRN (20:49)
[2018-05-16] MEDS ORDERED: ONDANSETRON DISINTEGRATING 4 MG TAB PO PRN (23:12)
[2018-05-17 05:16] LABS: PLATELET COUNT 538 10^3/uL (150-400)
[2018-05-17] MEDS: PIPERACILLIN/TAZO 2.25 GM/DEX 50 ML IV SCH (07:52)
[2018-05-17] MEDS: ATORVASTATIN CALCIUM 40 MG TAB PO SCH (07:53)
[2018-05-17] MEDS: CARVEDILOL 6.25 MG TAB PO SCH ×2 (07:53→18:21)
[2018-05-17] MEDS: LISINOPRIL 10 MG TAB PO SCH (07:53)
[2018-05-17] MEDS: ASPIRIN 81 MG CHEWABLE TAB PO SCH (07:54)
[2018-05-17] MEDS: CALCIUM ACETATE 667 MG CAP PO SCH ×3 (07:54→18:20)
[2018-05-17] MEDS: SERTRALINE HCL 50 MG TAB PO SCH (07:54)
[2018-05-17] MEDS: GABAPENTIN 300 MG CAP PO PRN ×2 (07:54→21:28)
[2018-05-17] MEDS: oxyCODONE IR 5 MG TAB PO PRN ×5 (07:55→21:28)
[2018-05-17] MEDS: DRONABINOL 2.5 MG CAP PO SCH ×2 (07:55→20:19)
--- NOTE | 2018-05-17 10:55 | PCMIDPN ---
Assessment/Plan: Assessment/Plan: * Left diabetic foot infection with nonhealing calcaneal wound: Culture show growth of Pseudomonas aeruginosa and group B Streptococcus; Pseudomonas is intermediately susceptible to Zosyn. Will therefore change to cefepime which will be dosed 2 g IV after dialysis 3 times per week. Will plan at least 2 weeks of therapy with cefepime with possible extension to 6 weeks given degree of exposed bone. Will review with nephrology regarding possible administration of cefepime at dialysis post discharge. Reviewed with surgery with plans for wound VAC placement over calcaneal wound. 05/17/18 10:52 Subjective: Patient with less heel pain. Plans by surgical service for wound VAC placement tomorrow. Objective: Vital Signs Temp Pulse Resp BP Pulse Ox 36.8 C 75 18 154/91 H 97 05/17/18 07:47 05/17/18 07:47 05/17/18 07:47 05/17/18 07:47 05/17/18 07:47 Microbiology 05/15/18 09:39 Gram Stain - Final Foot - Tissue Laboratory Results 05/17/18 04:18 05/17/18 04:18 05/16/18 05/17/18 05/18/18 05:59 05:59 05:59 Intake Total 700 750 Output Total 20 600 Balance 680 150 Zosyn # 2 Operative cultures with growth of Pseudomonas aeruginosa (intermediate susceptibility Zosyn), and group B Streptococcus - Physical Exam General Appearance: alert, no apparent distress EENT: No scleral icterus Extremities: inflammation (1+ lower extremity edema) Skin: other (Left calcaneal ulceration without surrounding cellulitis; extensive exposed bone present; minimal necrotic tissue) ICD10 Worksheet Patient Problems: Problems Problem Status Onset Decubitus ulcer of foot, stage 3 Acute Diabetic ulcer of left foot associated with secondary diabetes mellitus Acute ESRD on dialysis Acute Elevated LFTs Acute
--- NOTE | 2018-05-17 12:15 | SOAPPROG ---
SOAP Progress Note Assessment/Plan: Assessment: 57yo s/p L heel debridement - foot continues to look good - abx changed as Cx growing pseudomonas - plan at this time will be for VAC Saturday. Will then dc on IV abx with dialysis per ID - hopefully skin graft in future but will depend on how the wound granulates Plan: 05/16/18 09:58 05/16/18 09:59 05/17/18 12:14 Subjective: feels well Objective: Vital Signs Temp Pulse Resp BP Pulse Ox 36.9 C 66 18 172/85 H 98 05/17/18 11:24 05/17/18 11:24 05/17/18 11:24 05/17/18 11:24 05/17/18 11:24 Microbiology 05/15/18 09:39 Gram Stain - Final Foot - Tissue Laboratory Results 05/17/18 04:18 05/17/18 04:18 05/16/18 05/17/18 05/18/18 05:59 05:59 05:59 Intake Total 700 750 Output Total 20 600 Balance 680 150 ICD10 Worksheet Patient Problems: Problems Problem Status Onset Decubitus ulcer of foot, stage 3 Acute Diabetic ulcer of left foot associated with secondary diabetes mellitus Acute ESRD on dialysis Acute Elevated LFTs Acute
--- NOTE | 2018-05-17 12:24 | HOSPPROG ---
Hospitalist Progress Note Assessment/Plan: 57 yo M with hx of DM, ESRD admitted to surgery for DM foot ulcer, medicine consultation at request of Dr. León for evaluation and management of DM and other chronic medical issues. * left DM left foot infection w nonhealing calcaneal ulcer: -x ray shows no osteo -s/p I & D - wound goes to the bone 6 x 6cm -pseudomonas + group B Strept -abx changed to Cefepime *nausea -frequent when he gets dialysis -uses Cannibis in the OP setting to help w this, Marinol ordered *pain due to recent surgery -on Oxy -will add morphine -better today *acute hypoxemia -improved w getting dialysis *leukocytosis *DM -recent A1c of 8 -sliding scale -hold oral glycemics for now *ESRD -nephrology seeing *CAD -hx of [place], CABG -resume aspirin *COPD -no acute exacerbation *anemia -from chronic disease *hx of CVA *plan: will be getting a wound vac soon, cont abx Subjective: Lamonte is feeling better today, no complaint. Objective: Vital Signs Temp Pulse Resp BP Pulse Ox 36.9 C 66 18 172/85 H 98 05/17/18 11:24 05/17/18 11:24 05/17/18 11:24 05/17/18 11:24 05/17/18 11:24 Microbiology 05/15/18 09:39 Gram Stain - Final Foot - Tissue Laboratory Results 05/17/18 04:18 05/17/18 04:18 05/16/18 05/17/18 05/18/18 05:59 05:59 05:59 Intake Total 700 750 Output Total 20 600 Balance 680 150 - Physical Exam Constitutional: appears nourished, not in pain, chronically ill appearing Ears, Nose, Mouth, Throat: hearing normal Cardiovascular: regular rate and rhythym Respiratory: no respiratory distress Skin: warm Musculoskeletal: generalized weakness Neurologic: AAOx3 Psychiatric: interacting appropriately ICD10 Worksheet Patient Problems: Problems Problem Status Onset Decubitus ulcer of foot, stage 3 Acute Diabetic ulcer of left foot associated with secondary diabetes mellitus Acute ESRD on dialysis Acute Elevated LFTs Acute
[2018-05-17] MEDS: INSULIN LISPRO 100 UNIT/ML SC SCH ×2 (14:44→18:19)
--- NOTE | 2018-05-17 20:10 | SOAPPROG ---
SOAP Progress Note Assessment/Plan: Assessment: 1. esrd: typically dialyzes MWF but dialyzed here Thurs pm post-op. Declined to dialyze today, volume and lytes are very stable. Will plan next hd Saturday. 2. foot wound: s/p debridement and on abx. Currently on cefepime, I suspect his dialysis clinic stocks ceftaz instead of cefepime. 3. htn: cont home meds, vol status looks good. Plenty of room to increase lisinopril if needed but I generally prefer to titrate bp meds as outpt. Plan: 05/17/18 20:07 Subjective: Refused hd today. Understands next hd will not be until Saturday. Reports minimal uf requirements on hd due to high uo. Objective: Vital Signs Temp Pulse Resp BP Pulse Ox 36.8 C 70 16 165/80 H 96 05/17/18 19:14 05/17/18 19:14 05/17/18 19:14 05/17/18 19:14 05/17/18 19:14 Microbiology 05/15/18 09:39 Gram Stain - Final Foot - Tissue Laboratory Results 05/17/18 04:18 05/17/18 04:18 05/16/18 05/17/18 05/18/18 05:59 05:59 05:59 Intake Total 700 750 50 Output Total 20 600 Balance 680 150 50 Physical Exam - Physical Exam General Appearance: no apparent distress Respiratory: lungs clear Cardiac/Chest: regular rate, rhythm Abdomen: non-tender, soft Extremities: pedal edema (none), other (L foot wrapped, in brace) ICD10 Worksheet Patient Problems: Problems Problem Status Onset Decubitus ulcer of foot, stage 3 Acute Diabetic ulcer of left foot associated with secondary diabetes mellitus Acute ESRD on dialysis Acute Elevated LFTs Acute
[2018-05-17] MEDS: traZODone 50 MG TAB PO SCH (20:19)
[2018-05-17] MEDS: NICOTINE 21 MG/24 HR PATCH TD SCH (20:20)
[2018-05-18] MEDS: oxyCODONE IR 5 MG TAB PO PRN ×4 (07:30→21:14)
[2018-05-18] MEDS: INSULIN LISPRO 100 UNIT/ML SC SCH ×3 (08:19→17:36)
[2018-05-18] MEDS: CARVEDILOL 6.25 MG TAB PO SCH ×2 (08:20→17:36)
[2018-05-18] MEDS: CALCIUM ACETATE 667 MG CAP PO SCH ×3 (08:20→17:36)
[2018-05-18] MEDS: DRONABINOL 2.5 MG CAP PO SCH ×2 (08:20→21:10)
[2018-05-18] MEDS: SERTRALINE HCL 50 MG TAB PO SCH (08:20)
[2018-05-18] MEDS: ATORVASTATIN CALCIUM 40 MG TAB PO SCH (08:20)
[2018-05-18] MEDS: ASPIRIN 81 MG CHEWABLE TAB PO SCH (08:21)
[2018-05-18] MEDS: LISINOPRIL 10 MG TAB PO SCH (08:21)
--- NOTE | 2018-05-18 09:08 | ASMTCMCOM ---
CM Note CM Note Notes: 05/18/2018 Case Management Note Reviewed chart. Pt had debridement of foot wound. May require a wound vac at d/c. Will likely have follow up at the wound care clinic upon discharge. Per ID note pt currently on IV antibiotics. May require IV antibiotics at d/c. Pt has HD M[facility]. It's possible IV antibiotics can be admininstered after HD at the clinic. Will need to call [facility] if IV antibiotics are needed upon d/c. There are no therapies ordered at this time. Case Management d/c poc: to be determined. Case Management to follow. Date Signed: 05/18/2018 09:07 AM Electronically Signed By:Ines Lester RN
--- NOTE | 2018-05-18 10:23 | SOAPPROG ---
SOAP Progress Note Assessment/Plan: Assessment: 57yo s/p L heel debridement - woun dbed looks good, needs to granulate - plan to place VAC tomorrow, will need home VAC for dc - will need LT abx with dialysis per ID - plan for STSG when appropriate, likely 4 weeks to allow for granulation - until then, ambulation as tolerated in boot Plan: 05/16/18 09:58 05/16/18 09:59 05/17/18 12:14 05/18/18 10:22 Subjective: feels well, pain is improving Objective: Vital Signs Temp Pulse Resp BP Pulse Ox 36.8 C 75 18 168/101 H 93 05/18/18 08:00 05/18/18 08:20 05/18/18 08:00 05/18/18 08:21 05/18/18 08:00 Microbiology 05/15/18 09:39 Gram Stain - Final Foot - Tissue Laboratory Results 05/17/18 04:18 05/18/18 04:10 05/17/18 05/18/18 05/19/18 05:59 05:59 05:59 Intake Total 750 50 Output Total 600 Balance 150 50 ICD10 Worksheet Patient Problems: Problems Problem Status Onset Diabetic ulcer of left foot associated with secondary diabetes mellitus Acute Decubitus ulcer of foot, stage 3 Acute ESRD on dialysis Acute Elevated LFTs Acute
--- NOTE | 2018-05-18 13:47 | HOSPPROG ---
Hospitalist Progress Note Assessment/Plan: 57 yo M with hx of DM, ESRD admitted to surgery for DM foot ulcer, medicine consultation at request of Dr. León for evaluation and management of DM and other chronic medical issues. Evaluated the patient w Dr Valente. * left DM left foot infection w nonhealing calcaneal ulcer: -x ray shows no osteo -s/p I & D - wound goes to the bone 6 x 6cm -pseudomonas + group B Strept, now w + bacteroids thetaiotamicron- Dr Valente to initiate Flagyl -abx changed to Cefepime *nausea -frequent when he gets dialysis -uses Cannibis in the OP setting to help w this, Marinol ordered *pain due to recent surgery -on Oxy *acute hypoxemia -improved w getting dialysis *leukocytosis *DM -recent A1c of 8 -sliding scale -hold oral glycemics for now *ESRD -nephrology seeing *CAD -hx of [place], CABG -resume aspirin *COPD -no acute exacerbation *anemia -from chronic disease *hx of CVA *plan: will be getting a wound vac soon, cont abx. I spoke w CM about checking to see if the patient can receive Cefepime after dialysis/ they are looking into it. He is hoping for dc on Saturday with home care. Subjective: kyle is having left heel pain. didn't sleep well last night. Objective: Vital Signs Temp Pulse Resp BP Pulse Ox 36.8 C 70 18 160/87 H 96 05/18/18 11:27 05/18/18 11:27 05/18/18 11:27 05/18/18 11:27 05/18/18 11:27 Microbiology 05/15/18 09:39 Gram Stain - Final Foot - Tissue Laboratory Results 05/17/18 04:18 05/18/18 04:10 05/17/18 05/18/18 05/19/18 05:59 05:59 05:59 Intake Total 750 50 Output Total 600 Balance 150 50 - Physical Exam Constitutional: no apparent distress, appears nourished Eyes: PERRL Ears, Nose, Mouth, Throat: hearing normal Cardiovascular: regular rate and rhythym Respiratory: no respiratory distress, clear to auscultation, reduced air movement Gastrointestinal: normoactive bowel sounds Skin: other (left heel area wi ulceration, no drainage, has exposed bone ) Musculoskeletal: generalized weakness Neurologic: AAOx3 Psychiatric: interacting appropriately ICD10 Worksheet Patient Problems: Problems Problem Status Onset Decubitus ulcer of foot, stage 3 Acute Diabetic ulcer of left foot associated with secondary diabetes mellitus Acute ESRD on dialysis Acute Elevated LFTs Acute
--- NOTE | 2018-05-18 14:41 | PCMIDPN ---
Assessment/Plan: Assessment/Plan: * Left diabetic foot infection with nonhealing calcaneal wound: Polymicrobial cultures with growth of Pseudomonas aeruginosa, group B Streptococcus, and now also Bacteroides species. Continue cefepime 2 g dosed after dialysis. Will add oral metronidazole 500 mg twice daily. Will have case management inquire with dialysis center if cefepime can be obtained as spectrum of activity is different than ceftazidime which does not have good activity for group B Streptococcus. Potential for gastrointestinal upset or metallic taste in mouth with metronidazole discussed with patient today. 05/18/18 14:36 Subjective: Patient with persistent but decreasing left foot pain. Objective: Vital Signs Temp Pulse Resp BP Pulse Ox 36.8 C 70 18 160/87 H 96 05/18/18 11:27 05/18/18 11:27 05/18/18 11:27 05/18/18 11:27 05/18/18 11:27 Microbiology 05/15/18 09:39 Gram Stain - Final Foot - Tissue Laboratory Results 05/17/18 04:18 05/18/18 04:10 05/17/18 05/18/18 05/19/18 05:59 05:59 05:59 Intake Total 750 50 Output Total 600 Balance 150 50 Cefepime # 2 Foot culture with growth of Pseudomonas aeruginosa, group B Streptococcus, and Bacteroides - Physical Exam General Appearance: alert, no apparent distress EENT: No thrush Extremities: inflammation (Left foot ulceration without surrounding cellulitis; exposed bone over calcaneal region; no purulence) Abdomen: non-tender, No distended ICD10 Worksheet Patient Problems: Problems Problem Status Onset Decubitus ulcer of foot, stage 3 Acute Diabetic ulcer of left foot associated with secondary diabetes mellitus Acute ESRD on dialysis Acute Elevated LFTs Acute
--- NOTE | 2018-05-18 15:25 | ASMTCMCOM ---
CM Note CM Note Notes: 05/18/2018 Case Management Note Discussed with Dr. Valente and Sabrina Townsend COMPUTER INFORMATION SYSTEMS INSTRUCTOR. Case Management to call [facility] [place] tomorrow to see if 2g Cefepime antibiotic administration is possible after dialysis. If Cefepime is not a standard medication at dialysis center, will require referral to home infusion company with home delivery for pt to bring Cefepime to dialysis center for administration by staff. Pt will d/c with wound vac. Case Management to arrange with [facility] tomorrow. Pt will need home theater specialist. Inquired with [facility], [facility] will notifiy case management if pt is accepted tomorrow. Anticipating d/c on Saturday so pt can resume outpatient dialysis chair time on Saturday. Case Management d/c poc: see above. Case Management to follow. Date Signed: 05/18/2018 03:24 PM Electronically Signed By:Ines Lester RN
--- NOTE | 2018-05-18 18:32 | SOAPPROG ---
SOAP Progress Note Assessment/Plan: Assessment: 1. esrd: declined to dialyze yesterday, volume and lytes stable, will hd tomorrow on typical schedule. 2. foot wound: s/p debridement and on abx, for wound vac. On cefepime, will likely need to bring this to hd but can confirm with [place] tomorrow. 3. htn: cont home meds, will try to uf a bit tomorrow on hd. Plan: 05/17/18 20:07 05/18/18 18:29 Subjective: No c/o. Reports home bp typically in 140's but frequent hypotension on hd. Objective: Vital Signs Temp Pulse Resp BP Pulse Ox 36.7 C 68 18 167/89 H 3 L 05/18/18 15:59 05/18/18 17:36 05/18/18 15:59 05/18/18 17:36 05/18/18 15:59 Microbiology 05/15/18 09:39 Gram Stain - Final Foot - Tissue Laboratory Results 05/17/18 04:18 05/18/18 04:10 05/17/18 05/18/18 05/19/18 05:59 05:59 05:59 Intake Total 750 50 Output Total 600 Balance 150 50 Physical Exam - Physical Exam General Appearance: no apparent distress Respiratory: lungs clear Cardiac/Chest: regular rate, rhythm Extremities: pedal edema (L>R) ICD10 Worksheet Patient Problems: Problems Problem Status Onset Decubitus ulcer of foot, stage 3 Acute Diabetic ulcer of left foot associated with secondary diabetes mellitus Acute ESRD on dialysis Acute Elevated LFTs Acute
[2018-05-18] MEDS: NICOTINE 21 MG/24 HR PATCH TD SCH (21:10)
[2018-05-18] MEDS: metroNIDAZOLE 500 MG TAB PO SCH (21:10)
[2018-05-18] MEDS: traZODone 50 MG TAB PO SCH (21:10)
[2018-05-18] MEDS: GABAPENTIN 300 MG CAP PO PRN (21:14)
[2018-05-19] MEDS: DRONABINOL 2.5 MG CAP PO SCH ×2 (08:08→21:30)
[2018-05-19] MEDS: ASPIRIN 81 MG CHEWABLE TAB PO SCH (08:08)
[2018-05-19] MEDS: oxyCODONE IR 5 MG TAB PO PRN ×4 (08:08→21:58)
[2018-05-19] MEDS: ATORVASTATIN CALCIUM 40 MG TAB PO SCH (08:08)
[2018-05-19] MEDS: LISINOPRIL 10 MG TAB PO SCH (08:08)
[2018-05-19] MEDS: SERTRALINE HCL 50 MG TAB PO SCH (08:09)
[2018-05-19] MEDS: GABAPENTIN 300 MG CAP PO PRN (08:09)
[2018-05-19] MEDS: metroNIDAZOLE 500 MG TAB PO SCH ×2 (08:09→21:30)
[2018-05-19] MEDS: CARVEDILOL 6.25 MG TAB PO SCH ×2 (08:09→18:12)
[2018-05-19] MEDS: CALCIUM ACETATE 667 MG CAP PO SCH ×3 (08:09→18:12)
[2018-05-19] MEDS ORDERED: BACITRACIN OINTMENT 1 PACKET TP ONE (09:14)
[2018-05-19] MEDS: INSULIN LISPRO 100 UNIT/ML SC SCH ×3 (09:19→18:11)
--- NOTE | 2018-05-19 09:21 | SOAPPROG ---
SOAP Progress Note Assessment/Plan: Assessment/Plan: 57 Y M s/p L heel debridement. DM, CRF on HD. Seen with Dr. León. Wound vac placed today. Arrange for outpatient vac. Likely eventual skin graft once appropriate. Arterial studies. Offloading pressure boot. Abx per ID, per patient, plans to give at HD. S: occasional throbbing. O: alert, nad no wob ext calcaneal ulcer c exposed bone, 40% granulation. no erythema. no malodor. 05/19/18 09:16 Objective: Vital Signs Temp Pulse Resp BP Pulse Ox 36.6 C 73 16 169/86 H 97 05/19/18 07:29 05/19/18 08:09 05/19/18 07:29 05/19/18 08:09 05/19/18 07:29 Laboratory Results 05/17/18 04:18 05/19/18 04:15 05/18/18 05/19/18 05/20/18 05:59 05:59 05:59 Intake Total 50 300 Balance 50 300 ICD10 Worksheet Patient Problems: Problems Problem Status Onset Decubitus ulcer of foot, stage 3 Acute Diabetic ulcer of left foot associated with secondary diabetes mellitus Acute ESRD on dialysis Acute Elevated LFTs Acute
[2018-05-19] MEDS: HYDROmorphONE/DILAUDID 1 MG/ML INJ IVP PRN ×4 (09:54→18:40)
--- NOTE | 2018-05-19 12:07 | PDIAF ---
- Diagnosis Diagnosis: L diabetic foot wound, osteomyelitis - Medication Management Jail Antibiotics: cefepime 2g q M,W,F p HD Jail Antibiotic Stop Date: 06/27/18 Additional Medication Instructions: give after hemodialysis Discharge Medications: electronically signed and located in the Home Medication List. - Orders Services needed: Registered Nurse - Labs/Radiology CBC w/diff Date: 05/22/18 (weekly) CMP Date: 05/22/18 (weekly) CRP Date: 05/22/18 (weekly) Call or Fax Lab and Imaging Results to: Dr. Ricci Valente - Follow Up Care Current Providers and Referrals: DOROTHEA GORMAN [Other]
--- NOTE | 2018-05-19 14:14 | HOSPPROG ---
Hospitalist Progress Note Assessment/Plan: 57 yo M with hx of DM, ESRD admitted to surgery for DM foot ulcer, medicine consultation at request of Dr. León for evaluation and management of DM and other chronic medical issues. D/W Dr Dietrich. First encounter, chart reviewed. * left DM left foot infection w nonhealing calcaneal ulcer: -x ray shows no osteo -s/p I & D - wound goes to the bone 6 x 6cm -pseudomonas + group B Strept, now w + bacteroids thetaiotamicron -abx Cefepime *nausea -frequent when he gets dialysis -uses Cannibis in the OP setting to help w this, Marinol ordered *pain due to recent surgery -on Oxy *acute hypoxemia -improved w getting dialysis *leukocytosis *DM -recent A1c of 8 -sliding scale -hold oral glycemics for now *ESRD -nephrology seeing -HD *CAD -hx of [place], CABG -resume aspirin *COPD -no acute exacerbation *anemia -from chronic disease *hx of CVA *plan: DC home in am if doing well wound vac soon, cont abx. I spoke w CM about checking to see if the patient can receive Cefepime after dialysis, yes He is hoping for dc on Saturday with home care. Subjective: Up at edge of bed. Trying to eat breakfast. Foot hurts. Objective: Vital Signs Temp Pulse Resp BP Pulse Ox 36.8 C 70 16 176/90 H 93 05/19/18 11:44 05/19/18 11:44 05/19/18 11:44 05/19/18 11:44 05/19/18 11:44 Microbiology 05/15/18 09:39 Gram Stain - Final Foot - Tissue Laboratory Results 05/17/18 04:18 05/19/18 04:15 05/18/18 05/19/18 05/20/18 05:59 05:59 05:59 Intake Total 50 300 Balance 50 300 - Physical Exam Constitutional: appears nourished, chronically ill appearing, uncomfortable Eyes: anicteric sclera, EOMI, No PERRL Ears, Nose, Mouth, Throat: moist mucous membranes, hearing normal, ears appear normal Cardiovascular: No JVD, No tachycardia, No edema Respiratory: no respiratory distress, no rales or rhonchi, reduced air movement Gastrointestinal: No tenderness, No ascites, No distension Skin: warm, normal color, No mottled Musculoskeletal: normal joint ROM, no joint effusions, generalized weakness Neurologic: AAOx3 Psychiatric: interacting appropriately, not anxious, not encephalopathic, thought process linear ICD10 Worksheet Patient Problems: Problems Problem Status Onset Diabetic ulcer of left foot associated with secondary diabetes mellitus Acute Decubitus ulcer of foot, stage 3 Acute ESRD on dialysis Acute Elevated LFTs Acute
--- NOTE | 2018-05-19 15:17 | ASMTCMCOM ---
CM Note CM Note Notes: Pts case discussed w/ SHILOH Kimbrough and Mary Soriano NP. Pt will most likely d/c tomorrow. CM spoke to the discharge planner at [facility]. They will be able to get cefepime 2gm. ID orders sent to [facility] and they are able to provide ivabx and dialysis. Wound vac prescription sent to [facility]. [facility] Update sent to [facility] CM to follow. Plan: MWF Dialysis at [facility] w/ MWF ivabx cefepime 2gm with [facility]; RN, OT Date Signed: 05/19/2018 03:17 PM Electronically Signed By:NANDO Shi
--- NOTE | 2018-05-19 15:37 | SOAPPROG ---
SOAP Progress Note Assessment/Plan: Assessment/Plan: ESRD: on HD MWF. - Pt seen on HD today. HTN: continue current meds. AMADOR: continue phos binder. Anemia: pt will continue to get epo and iron as needed per outpatient dialysis unit. Subjective: No acute events overnight. Pt states pain is reasonable at this time. He has wound vac in place. He is on HD currently and tolerating fine. Objective: Vital Signs Temp Pulse Resp BP Pulse Ox 36.8 C 70 16 176/90 H 93 05/19/18 11:44 05/19/18 11:44 05/19/18 11:44 05/19/18 11:44 05/19/18 11:44 Microbiology 05/15/18 09:39 Gram Stain - Final Foot - Tissue Laboratory Results 05/17/18 04:18 05/19/18 04:15 05/18/18 05/19/18 05/20/18 05:59 05:59 05:59 Intake Total 50 300 Balance 50 300 General: alert and oriented, no acute distress Eyes: EOMI, PERRL OP: Clear CV: RRR Resp: nonlabored respirations Abd: Soft, NT/ND Ext: no edema RLE, wound vac on LLE Neuro: CN II-XII Grossly intact, no asterixis Psych: cooperative, appropriate mood and affect Access: RIJ tunneled catheter ICD10 Worksheet Patient Problems: Problems Problem Status Onset Decubitus ulcer of foot, stage 3 Acute Diabetic ulcer of left foot associated with secondary diabetes mellitus Acute ESRD on dialysis Acute Elevated LFTs Acute
[2018-05-19] MEDS ORDERED: CEFEPIME HCL 2 GM in NS 100 ML IV SCH (17:00)
[2018-05-19] MEDS ORDERED: HEPARIN 50,000 UNIT/10 ML VIAL ONE (19:03)
[2018-05-19] MEDS: traZODone 50 MG TAB PO SCH (21:30)
[2018-05-19] MEDS: NICOTINE 21 MG/24 HR PATCH TD SCH (21:30)
[2018-05-20] MEDS: oxyCODONE IR 5 MG TAB PO PRN ×2 (01:58→11:35)
[2018-05-20] MEDS ORDERED: CEFEPIME HCL 2 GM in NS 100 ML IV SCH (08:00)
[2018-05-20] MEDS ORDERED: LORazepam 0.5 MG TAB PO ONE (08:13)
[2018-05-20] MEDS: LISINOPRIL 10 MG TAB PO SCH (08:42)
[2018-05-20] MEDS: DRONABINOL 2.5 MG CAP PO SCH (08:42)
[2018-05-20] MEDS: ATORVASTATIN CALCIUM 40 MG TAB PO SCH (08:43)
[2018-05-20] MEDS: SERTRALINE HCL 50 MG TAB PO SCH (08:43)
[2018-05-20] MEDS: CALCIUM ACETATE 667 MG CAP PO SCH ×2 (08:43→11:36)
[2018-05-20] MEDS: ASPIRIN 81 MG CHEWABLE TAB PO SCH (08:43)
[2018-05-20] MEDS: INSULIN LISPRO 100 UNIT/ML SC SCH ×2 (08:43→11:35)
[2018-05-20] MEDS: CARVEDILOL 6.25 MG TAB PO SCH (08:43)
--- NOTE | 2018-05-20 09:27 | PDIAF ---
- Diagnosis Diagnosis: L diabetic foot wound, osteomyelitis - Medication Management Transportation Specialist Antibiotics: cefepime 2g q M,W,F p HD; metronidazole 500 mg p.o. Twice daily Transportation Specialist Antibiotic Stop Date: 06/27/18 Additional Medication Instructions: give after hemodialysis Discharge Medications: electronically signed and located in the Home Medication List. - Orders Services needed: Registered Nurse - Labs/Radiology CBC w/diff Date: 05/22/18 (weekly) CMP Date: 05/22/18 (weekly) CRP Date: 05/22/18 (weekly) Call or Fax Lab and Imaging Results to: Dr. Ricci Valente - Follow Up Care Current Providers and Referrals: DOROTHEA GORMAN [Other]
--- NOTE | 2018-05-20 09:43 | PDIAF ---
- Diagnosis Diagnosis: L diabetic foot wound, osteomyelitis - Medication Management Multiple Knife Edge Trimmer Operator Antibiotics: cefepime 2g q M,W,F p HD; metronidazole 500 mg p.o. Twice daily Multiple Knife Edge Trimmer Operator Antibiotic Stop Date: 06/27/18 Additional Medication Instructions: give after hemodialysis Discharge Medications: electronically signed and located in the Home Medication List. - Orders Services needed: Registered Nurse - Labs/Radiology CBC w/diff Date: 05/22/18 (weekly) CMP Date: 05/22/18 (weekly) CRP Date: 05/22/18 (weekly) Call or Fax Lab and Imaging Results to: Dr. Ricci Valente - Follow Up Care Current Providers and Referrals: DOROTHEA GORMAN [Other] Ricci Valente MD [Medical Doctor] - 05/28/18 10:00 am
--- NOTE | 2018-05-20 10:23 | SOAPPROG ---
SOAP Progress Note Assessment/Plan: Assessment/Plan: ESRD: on HD MWF. - Next HD tomorrow, can be done at outpatient unit. HTN: continue current meds. AMADOR: continue phos binder. Anemia: pt will continue to get epo and iron as needed per outpatient dialysis unit. Subjective: No acute events overnight. Pt happy to be going home today. Objective: Vital Signs Temp Pulse Resp BP Pulse Ox 36.7 C 77 18 177/93 H 95 05/20/18 07:32 05/20/18 07:32 05/20/18 07:32 05/20/18 07:32 05/20/18 07:32 Microbiology 05/15/18 09:39 Gram Stain - Final Foot - Tissue Laboratory Results 05/17/18 04:18 05/19/18 05/20/18 05/21/18 05:59 05:59 05:59 Intake Total 650 Balance 650 General: alert and oriented, no acute distress OP: Clear CV: RRR Resp: nonlabored respirations on RA Abd: Soft, NT/ND Ext: no edema Psych: cooperative Access: RIJ tunneled catheter ICD10 Worksheet Patient Problems: Problems Problem Status Onset Decubitus ulcer of foot, stage 3 Acute Diabetic ulcer of left foot associated with secondary diabetes mellitus Acute ESRD on dialysis Acute Elevated LFTs Acute
--- NOTE | 2018-05-20 10:39 | PDIAF ---
- Diagnosis Diagnosis: L diabetic foot wound, osteomyelitis Code Status: Full Code - Medication Management Correction Antibiotics: cefepime 2g q M,W,F p HD; metronidazole 500 mg p.o. Twice daily Patient Consumer Marketer Antibiotic Stop Date: 06/27/18 Additional Medication Instructions: give after hemodialysis Discharge Medications: electronically signed and located in the Home Medication List. - Orders Services needed: Registered Nurse, Occupational Therapy - Labs/Radiology CBC w/diff Date: 05/22/18 (weekly) CMP Date: 05/22/18 (weekly) CRP Date: 05/22/18 (weekly) Call or Fax Lab and Imaging Results to: Dr. Ricci Valente - Follow Up Care Current Providers and Referrals: DOROTHEA GORMAN [Other] Ricci Valente MD [Medical Doctor] - 05/28/18 10:00 am Ángel León MD [Medical Doctor] -
--- NOTE | 2018-05-20 10:44 | PDIAF ---
- Diagnosis Diagnosis: L diabetic foot wound, osteomyelitis Code Status: Full Code - Medication Management Fdc Antibiotics: cefepime 2g q M,W,F p HD; metronidazole 500 mg p.o. 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 - Orders Services needed: Registered Nurse, Occupational Therapy Wound Care Instructions: please use white foam over exposed bone in middle of calcaneal ulcer, then use stubbs "snail" foam over top and bridge to ankle for comfort. vac placed Saturday in hospital. Please change vac M, W, F's. Thanks. - Labs/Radiology CBC w/diff Date: 05/22/18 (weekly) CMP Date: 05/22/18 (weekly) CRP Date: 05/22/18 (weekly) Call or Fax Lab and Imaging Results to: Dr. Ricci Valente - Follow Up Care Current Providers and Referrals: DOROTHEA GORMAN [Other] Ángel León MD [Medical Doctor] - Ricci Valente MD [Medical Doctor] - 05/28/18 10:00 am
[2018-05-20] MEDS: metroNIDAZOLE 500 MG TAB PO SCH (10:45)
[2018-05-20 11:10] VITALS: BP 179/93
--- NOTE | 2018-05-20 11:35 | ASMTLACE ---
MARTIN Length of stay for Answers: 7-13 days current admission Acuity / Level of Answers: Yes Care: Did the patient have an inpatient admission? Comorbidities - select Answers: Cerebrovascular disease all that apply (CVA, TIA, aneurysms, vasc ular dementia) Chronic pulmonary disease Congestive heart failure Coronary Artery Disease Diabetes (uncontrolled or controlled) Moderate or severe liver or renal disease Previous myocardial infarction Other Notes: glaucoma and blindness # of Emergency department Answers: 1-2 visits in the last 6 months Score: 23 Date Signed: 05/20/2018 11:34 AM Electronically Signed By:Casandra Mckay LCSW
[2018-05-20] MEDS: GABAPENTIN 300 MG CAP PO PRN (11:36)
--- NOTE | 2018-05-20 11:44 | ASMTDCNOTE ---
Case Management Discharge Discharge Order Complete? Answers: Yes Patient to Obtain Answers: Other Notes: [facility] Medications Transportation Arranged Answers: Family/Friends Faxed Final Orders Answers: Yes Notes: [facility] Agency/Facility Transfer Answers: Yes Notes: [facility] Report Printed & Faxed to Receiving Agency Family Notified Answers: Yes Notes: Jaleesa - caregiver Discharge Comments Notes: Patient is going home with a wound vac and [facility]. He will be going for dialysis Saturday, Saturday, and Saturday at 11:30 AM. His ABX are to be given to him after his dialysis. Discharge summaries have been Allscripted to [facility] and they were informed via telephone patient is discharging today. No further needs. Date Signed: 05/20/2018 11:43 AM Electronically Signed By:Casandra Mckay LCSW
--- NOTE | 2018-05-20 12:04 | ASDISCHSUM ---
Discharge Information Plan Status:Home with Home Health Medically Cleared to Leave:05/19/2018 Discharge Date:05/19/2018 CM D/C Disposition:Home Health Service ADT D/C Disposition:Home Health Service Projected Discharge Date:05/20/2018 11:00 AM Transportation at D/C:Family Discharge Delay Reason: Follow-Up Date:05/20/2018 11:00 AM Discharge Slot:2 - 12:01 pm - 18:00 pm Final Diagnosis:Left diabetic foot stage 3 ulcer Placement Information Referral Type:*Home Health Care Services Referral ID:[id number] Provider Name:[facility] Address 1:[address] [address] Address 2: City:[place] Selection Factors: State:[place] Referral Type:[facility] Referral Referral ID:[id number] Provider Name:[facility] [place] Central Intake/[employer] Address 1:[address] Address 2: City:[place] Selection Factors: State:[place] Patient Contact Information Contact Name:ONI Relationship:Other Address:[address] Work Phone: City:[place] Alternate Phone: [facility]/Zip Code:[place] [address] Email: Financial Information Financial Class:Medicare Primary Plan Desc:MEDICARE INPATIENT Primary Plan Number:[id number] Secondary Plan Desc:MED[place] Secondary Plan Number:[id number] Assessment Information LACE LACE Length of stay for Answers: 7-13 days current admission Acuity / Level of Answers: Yes Care: Did the patient have an inpatient admission? Comorbidities - select Answers: Cerebrovascular disease all that apply (CVA, TIA, aneurysms, vasc ular dementia) Chronic pulmonary disease Congestive heart failure Coronary Artery Disease Diabetes (uncontrolled or controlled) Moderate or severe liver or renal disease Previous myocardial infarction Other Notes: glaucoma and blindness # of Emergency department Answers: 1-2 visits in the last 6 months Score: 23 Date Signed: 05/20/2018 11:34 AM Electronically Signed By:Casandra Mckay LCSW [facility] CM Progress Note CM Note CM Note Notes: Per chart review: Pt admitted for left foot ulcer requiring surgical debridement. Pt has had the foot wound since about November after he fell down some stairs. Pt has failed outpatient treatment options. Pt was seen by [facility] on 05/12/18 and is being followed by [facility]. Pt's PMH includes DM, ESRD (pt usually receives HD on MWF at [facility]), CVA x2, multiple SC's, CAD, CABG, CHF, COPD, glaucoma and blindness, depression, anxiety, and chronic home O2 use. Pt receiving IV abx, awaiting cultures for possible treatment modification. Pt lives with a friend who he considers a repairer recreational vehicle. Exact DC needs [facility] to follow. Date Signed: 05/15/2018 02:56 PM Electronically Signed By:Maia Ayala RN [facility] CM Progress Note CM Note CM Note Notes: 05/18/2018 Case Management Note Reviewed chart. Pt had debridement of foot wound. May require a wound vac at d/c. Will likely have follow up at the wound care clinic upon discharge. Per ID note pt currently on IV antibiotics. May require IV antibiotics at d/c. Pt has HD MWF at [facility]. It's possible IV antibiotics can be admininstered after HD at the clinic. Will need to call [facility] if IV antibiotics are needed upon d/c. There are no therapies ordered at this time. Case Management d/c poc: to be determined. Case Management to follow. Date Signed: 05/18/2018 09:07 AM Electronically Signed By:Ines Lester RN [facility] Progress Note CM Note CM Note Notes: 05/18/2018 Case Management Note Discussed with Dr. Valente and Sabrina Townsend NP. Case Management to call [facility] [place] tomorrow to see if 2g Cefepime antibiotic administration is possible after dialysis. If Cefepime is not a standard medication at dialysis center, will require referral to home infusion company with home delivery for pt to bring Cefepime to dialysis center for administration by staff. Pt will d/c with wound vac. Case Management to arrange with [facility] tomorrow. Pt will need research home economist. Inquired with [facility], [facility] will notifiy case management if pt is accepted tomorrow. Anticipating d/c on Saturday so pt can resume outpatient dialysis chair time on Saturday. Case Management d/c poc: see above. Case Management to follow. Date Signed: 05/18/2018 03:24 PM Electronically Signed By:Ines Lester RN [facility] Progress Note CM Note CM Note Notes: Pts case discussed w/ SHILOH Kimbrough and Mary Soriano NP. Pt will most likely d/c tomorrow. CM spoke to the dry pan charger at [facility]. They will be able to get cefepime 2gm. ID orders sent to [facility] and they are able to provide ivabx and dialysis. Wound vac prescription sent to [facility]. Pt is current w/ [facility]. Update sent to Family . CM to follow. Plan: MWF Dialysis at [facility] w/ MWF ivabx cefepime 2gm with [facility]; RN, OT Date Signed: 05/19/2018 03:17 PM Electronically Signed By:NANDO Shi Case Management Discharge Plan Note Case Management Discharge Discharge Order Complete? Answers: Yes Patient to Obtain Answers: Other Notes: [facility] Medications Transportation Arranged Answers: Family/Friends Faxed Final Orders Answers: Yes Notes: [facility] Agency/Facility Transfer Answers: Yes Notes: [facility] Report Printed & Faxed to Receiving Agency Family Notified Answers: Yes Notes: Jaleesa - caregiver Discharge Comments Notes: Patient is going home with a wound vac and [facility]. He will be going for dialysis Saturday, Saturday, and Saturday at 11:30 AM. His ABX are to be given to him after his dialysis. Discharge summaries have been Allscripted to [facility] and they were informed via telephone patient is discharging today. No further needs. Date Signed: 05/20/2018 11:43 AM Electronically Signed By:Casandra Mckay LCSW Intervention Information Intervention Type:No Admission Order Date of Service:05/16/2018 01:24 PM Patient Type:Inpatient Staff Member:Sarah Monteiro Hours: Discipline: Severity: Comment:
--- NOTE | 2018-05-20 19:15 | GDS ---
DISCHARGE DIAGNOSES: 1. End-stage renal disease. 2. Left diabetic foot infection. 3. Nausea. 4. Acute hypoxemia. 5. Leukocytosis. 6. Diabetes mellitus. 7. Coronary artery disease. 8. Chronic obstructive pulmonary disease. 9. Anemia. CONSULTATIONS: Surgery, Nephrology, Infectious Disease. PHYSICAL EXAM: GENERAL: The patient is alert. VITAL SIGNS: Afebrile at 36.7, pulse 73. Respirato ry rate is 20. Blood pressure is 179/93, saturating greater than 98% on room air. I have seen and e valuated the patient on the day of discharge. HOSPITAL COURSE: The patient is a 57-year-old male brought to the hospital secondary to foot infecti on. He was evaluated and diagnosed with: 1. Left diabetic foot infection. During this hospitalization, he received I and D per Dr. León, as well as IV antibiotics and Infectious Disease consultation. Wound VAC has been placed, and the marco ent will continue with wound care in the outpatient setting. He will also continue IV cefepime after dialysis. 2. Nausea. This happens during the patient's dialysis and is at the patient's baseline. 3. Pain. This is secondary to the patient's foot infection. 4. Acute hypoxemia. This has resolved. 5. Leukocytosis. This is stable. 6. Diabetes mellitus. He will continue his previously prescribed home regimen. 7. End-stage renal disease. The patient received a consultation from Nephrology during this hospita lization. He will follow up with his regular scheduled dialysis at the time of disposition. 8. Coronary artery disease. This is stable. 9. COPD. No acute exacerbation. 10. Anemia. This is a chronic disease and stable. DISPOSITION: We discharged home with home health care, wound care, wound VAC, and outpatient hemodia lysis. He will also continue on IV cefepime and oral Flagyl at the time of disposition. I reviewed the patient's disposition with Dr. Ricci Valente of Infectious Disease, who was in agreement with this an, as well as surgery service, Dr. Denis León. I spent greater than 35 minutes in the care, coordination, and management of this patient's dispositi on. /[id number]/MODL
--- NOTE | 2018-05-23 14:17 | PQFORM ---
PHYSICIAN QUERY FORM Needs Your Response This query form is being sent to you to assure this patient record is coded properly. Please respond to the question below: CNC OPERATOR MACHINIST QUESTION: Dr Miranda Please clarify whether this patients debridement procedure was __ Excisional ___ Non-Excisional ___ Other (please specify ) Thank You Shane[place] Conditioner Tumbler Operator INSTRUCTIONS FOR RESPONSE: Answer question by clicking on the "Edit Document" button. Move cursor to area below the stars. When complete, hit "Save." Click on the "Sign" button, then click "Sign" again. Type in your PIN and hit "Enter." Biopsy was excisional MTDD
== END 2018-05-20 13:07 | disposition home health service (06) | DRG 623 ==
LOC: F3E 16:01
PROVIDERS: ADMIT Surgery; ATTEND Surgery
PROC: 0JBR0ZZ Excision of Left Foot Subcutaneous Tissue and Fascia, Open Approach (ICD-10-PCS; principal; 2018-05-15 08:12)
DX: E11.621 Type 2 diabetes mellitus with foot ulcer (principal); L97.409 Non-pressure chronic ulcer of unspecified heel and midfoot with unspecified severity; B95.1 Streptococcus, group B, as the cause of diseases classified elsewhere; E11.22 Type 2 diabetes mellitus with diabetic chronic kidney disease; N18.6 End stage renal disease; E11.40 Type 2 diabetes mellitus with diabetic neuropathy, unspecified; I73.9 Peripheral vascular disease, unspecified; R09.02 Hypoxemia; D53.9 Nutritional anemia, unspecified; R11.0 Nausea; J44.9 Chronic obstructive pulmonary disease, unspecified; I25.10 Atherosclerotic heart disease of native coronary artery without angina pectoris; I50.9 Heart failure, unspecified; H54.12 Blindness, left eye, low vision right eye; Z79.4 Long term (current) use of insulin; Z99.81 Dependence on supplemental oxygen; Z86.73 Personal history of transient ischemic attack (TIA), and cerebral infarction without residual deficits; Z99.2 Dependence on renal dialysis; Z95.1 Presence of aortocoronary bypass graft; F17.210 Nicotine dependence, cigarettes, uncomplicated; I25.2 Old myocardial infarction
CPT/HCPCS: 96374; 97166-GO; G8987-GO-CJ; G8988-GO-CI; G8989-GO-CI; J0690; J0692; J1100; J1170; J1335; J1644; J1815; J2250; J2270; J2405; J2543; J2704; J3010; J3370; J7613

== ENCOUNTER 2018-07-22 09:22 | Inpatient (IN) | payer OTHER, MEDICAID ==
[2018-07-22] MEDS ORDERED: LR 1,000 ML IV ONE (09:51)
[2018-07-22] MEDS ORDERED: NS 1,000 ML IV ONE (10:15)
--- NOTE | 2018-07-22 10:21 | GHP ---
[f rep st] PREOP HISTORY AND PHYSICAL DATE OF ADMISSION: 07/22/2018 CHIEF COMPLAINT: Left foot. HISTORY OF PRESENT ILLNESS: The patient is a 57-year-old with a prolonged history of left heel pain. He developed an open wound on the plantar aspect of his heel, which has undergone multiple options, including wound VAC and surgical debridement. He continues to have opening. PAST MEDICAL HISTORY: Positive for hyper cholesterol, hypertension, diabetes, and asthma. MEDICINES: Include atorvastatin, carvedilol, gabapentin, glipizide, lisinopril, trazodone, and Piero kenna. ALLERGIES: He lists no drug allergies. SOCIAL HISTORY: Positive for cigarette smoking (currently 1 pack per week, but previously much more) . SURGICAL HISTORY: Significant for coronary artery surgery. PHYSICAL EXAMINATION: GENERAL: He is alert and oriented x3, in no acute distress. HEENT: Head is normocephalic. Vision is diminished. NECK: Supple. No JVD or lymphadenopathy. CHEST: Clear to a uscultation with mild crackling. HEART: Regular rate and rhythm. ABDOMEN: Soft, nontender, nondis tended. No organomegaly. GENITAL, RECTAL, AND BREAST EXAM: Deferred. EXTREMITY EXAMINATION: Reve als an open wound on the plantar aspect of his left heel. ASSESSMENT: Left calcaneal osteomyelitis. PLAN: The patient is scheduled to undergo a left gastrocnemius recession, a partial calcanectomy and irrigation debridement of the left foot. /[id number]/MODL
[2018-07-22 10:29] LABS: PLATELET COUNT 404 10^3/uL (150-400)
[2018-07-22] MEDS ORDERED: BUPIVACAINE 0.5% 30 ML SDV ONE (10:34)
[2018-07-22] MEDS ORDERED: ceFAZolin 2 GM/DEXTROSE 100 ML IV ONE (10:50)
[2018-07-22] MEDS ORDERED: PROMETHAZINE HCL 25 MG/ML INJ IVP PRN (10:50)
--- NOTE | 2018-07-22 10:50 | PDANEPAE ---
ANE History of Present Illness diabetic ulcer ANE Past Medical History - Cardiovascular History Hx Hypertension: Yes Hx Arrhythmias: No Hx Chest Pain: No Hx Coronary Artery / Peripheral Vascular Disease: Yes Hx CHF / Valvular Disease: Yes Hx Palpitations: No Cardiovascular History Comment: htn. hyperlipidemia. CAD. PVD - Pulmonary History Hx COPD: Yes Hx Asthma/Reactive Airway Disease: No Hx Recent Upper Respiratory Infection: No Hx Oxygen in Use at Home: Yes Hx Sleep Apnea: Yes Sleep Apnea Screening Result - Last Documented: Positive Pulmonary History Comment: sherley triggers - Neurologic History Hx Cerebrovascular Accident: Yes Hx Seizures: No Hx Dementia: No Neurologic History Comment: hx of cva. diabetic neuropathy - Endocrine History Hx Diabetes: Yes Hypothyroid: No Hyperthyroid: No Obesity: no Endocrine History Comment: type 2 - Renal History Hx Renal Disorders: Yes Renal History Comment: ESRD with dialysis - Liver History Hx Hepatic Disorders: Yes Hepatic History Comment: elevated LFTs - Neurological & Psychiatric Hx Hx Neurological and Psychiatric Disorders: No - Cancer History Hx Cancer: No - Congenital Disorder History Hx Congenital Disorders: No - GI History Hx Gastrointestinal Disorders: No - Other Health History Other Health History: glaucoma. 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 hard of hearing no aides - Chronic Pain History Chronic Pain: No - Surgical History Prior Surgeries: 05.15.18 i&d left heel with Marthaller ANE Review of Systems Review of systems is: negative Review of Systems: - Exercise capacity Exercise capacity: <4 METS ANE Patient History - Allergies Allergies/Adverse Reactions: No Known Allergies Allergy (Verified 05/14/18 11:04) - Home Medications Home medications: home medication list seen and reviewed Home Medications: Albuterol [Proventil Inhaler HFA (*)] 1 - 2 puffs IH DAILY PRN 05/09/18 [Last Taken 07/22/18] Atorvastatin Calcium [Lipitor 40 mg (*)] 40 mg PO DAILY 05/09/18 [Last Taken ] Calcium Acetate [Phoslyra] 667 mg PO TIDMEAL 05/09/18 [Last Taken 07/21/18] Carvedilol [Coreg (*)] 6.25 mg PO BIDMEAL 05/09/18 [Last Taken 07/21/18] Gabapentin [Neurontin 300 MG (*)] 300 mg PO BID PRN 05/09/18 [Last Taken ] Nitroglycerin [Nitrostat 0.4 mg (*)] 0.4 mg SL Q5M PRN 05/09/18 [Last Taken ] Sertraline HCl [Zoloft 50mg (*)] 50 mg PO DAILY 05/09/18 [Last Taken 07/22/18] glipiZIDE [Glucotrol] 10 mg PO BID 05/09/18 [Last Taken 07/21/18] traZODone [traZODONE 50MG (*)] 50 mg PO HS 05/09/18 [Last Taken 07/21/18] Acetaminophen [Tylenol 325mg (*)] 325 mg PO DAILY PRN 05/14/18 [Last Taken 07/15] Aspirin [Aspirin 81mg (*)] 81 mg PO DAILY 05/14/18 [Last Taken 07/20/18] - NPO status NPO Status: no food or drink >8 hours NPO Since - Liquids (Date): 07/22/18 NPO Since - Liquids (Time): 08:00 NPO Since - Solids (Date): 07/21/18 NPO Since - Solids (Time): 20:30 - Anes Hx Anes Hx: no prior problems - Smoking Hx Smoking Status: Current every day smoker - Alcohol Use Alcohol Use: None - Family Anes Hx Family Anes Hx: none ANE Labs/Vital Signs - Labs Result Diagrams: 07/22/18 10:10 07/22/18 10:10 - Vital Signs Blood Pressure: 118/68 Heart Rate: 72 Respiratory Rate: 16 O2 Sat (%): 96 Height: 172.72 cm Weight: 80.3 kg ANE Physical Exam - Airway Neck exam: FROM Mallampati Score: Class 2 Mouth exam: normal dental/mouth exam - Pulmonary Pulmonary: no respiratory distress, clear to auscultation - Cardiovascular Cardiovascular: regular rate and rhythym, no murmur, rub, or gallop - ASA Status ASA Status: IV ANE Anesthesia Plan Anesthesia Plan: GA w LMA
[2018-07-22] MEDS ORDERED: NALOXONE HCL 0.4 MG/ML INJ IVP PRN ×2 (10:54→13:05)
[2018-07-22] MEDS ORDERED: morphINE PCA 30 MG/30 ML PCA IV PRN (10:54)
[2018-07-22] MEDS ORDERED: D5W 1/2 NS W/ 20 KCl/L 1,000 ML IV SCH (11:00)
--- NOTE | 2018-07-22 11:01 | POSTOPPROG ---
Post Op Note Date of Operation: 07/22/18 Surgeon: Jose Carlos Patel Anesthesia: LMA Pre-op Diagnosis: R calcaneal osteomyelitis, gastroc contracture Post-op Diagnosis: same Procedure: R partial calcanectomy, gastroc recession Inf/Abcess present in the surg proc area at time of surgery?: Yes Depth: Deep Incisional (Fascial) EBL: Minimal
[2018-07-22] MEDS ORDERED: MIDAZOLAM 2 MG/2 ML VIAL IVP ONE (11:24)
[2018-07-22] MEDS ORDERED: MIDAZOLAM 2 MG/2 ML VIAL ONE (11:27)
[2018-07-22] MEDS ORDERED: PROPOFOL 200 MG/20 ML VIAL ONE (11:34)
[2018-07-22] MEDS ORDERED: fentaNYL 250 MCG/5 ML INJ ONE (11:34)
--- NOTE | 2018-07-22 12:15 | PDMN ---
Medical Necessity Medical necessity: [facility] [address] Foot: Surgical Wound Care, A-2 days: 57 yo s/p L partial calcanealectomy and L gastrocnemius muscle lengthening for osteomyelitis that failed outpt management. IP status for wound care, IV antibx and coborbids - hx HTN, HLD, CAD, PVD, DM, smoker, JOSEY, CVA, ESRD w/ dialysis, elevated LFTs, blind in left eye, ASA IV. Anticipate>2MN stay.
[2018-07-22] MEDS ORDERED: ePHEDrine SULFATE 25 MG/5 ML SYR ONE (12:27)
[2018-07-22] MEDS ORDERED: LIDOCAINE 2% 5 ML SDV ONE (12:27)
[2018-07-22] MEDS ORDERED: ONDANSETRON 4 MG/2 ML VIAL ONE (12:27)
[2018-07-22] MEDS ORDERED: NS 500 ML IV PRN (13:05)
--- NOTE | 2018-07-22 13:07 | POSTANESTH ---
Post Anesthetic Evaluation Cardiovascular Status: Normal, Stable Respiratory Status: Normal, Stable Level of Consciousness/Mental Status: Moderately Sleepy Pain Control: Adequate, Prn Tx Ordered Nausea/Vomiting Control: Adequate, Prn Tx Ordered Complications Possibly Related to Anesthesia: None Noted
[2018-07-22] MEDS ORDERED: fentaNYL 100 MCG/2 ML INJ ONE ×2 (13:55→14:16)
[2018-07-22] MEDS: fentaNYL 100 MCG/2 ML INJ IVP PRN ×5 (13:56→14:26)
[2018-07-22] MEDS ORDERED: oxyCODONE IR 5 MG TAB ONE (14:33)
[2018-07-22] MEDS: oxyCODONE IR 5 MG TAB PO PRN ×4 (14:37→21:03)
[2018-07-22] MEDS: ONDANSETRON 4 MG/2 ML VIAL IVP PRN ×2 (16:43→21:03)
[2018-07-22] MEDS ORDERED: ALBUTEROL 60 PUFFS/8 GM MDI IH PRN (17:57)
[2018-07-22] MEDS ORDERED: LORazepam 1 MG TAB PO PRN (17:57)
[2018-07-22] MEDS ORDERED: busPIRone 15 MG TAB PO PRN (17:57)
[2018-07-22] MEDS ORDERED: NITROGLYCERIN 0.4 MG BTL SL PRN (17:57)
[2018-07-22] MEDS ORDERED: GABAPENTIN 300 MG CAP PO PRN (17:57)
[2018-07-22] MEDS ORDERED: guaiFENesin 600 MG TAB.ER PO PRN (17:57)
[2018-07-22] MEDS: CARVEDILOL 6.25 MG TAB PO SCH (18:16)
[2018-07-22] MEDS: glipiZIDE 10 MG TAB PO SCH (18:16)
[2018-07-22] MEDS: ACETAMINOPHEN 500 MG TAB PO SCH (18:20)
[2018-07-22] MEDS: METHOCARBAMOL 750 MG TAB PO PRN (18:20)
[2018-07-22] MEDS: CALCIUM ACETATE 667 MG CAP PO SCH (18:28)
--- NOTE | 2018-07-22 20:21 | GOP ---
[f rep st] OPERATIVE REPORT DATE OF OPERATION: 07/22/2018 SURGEON: Jose Carlos Patel MD ANESTHESIA: General. PREOPERATIVE DIAGNOSIS: 1. Left calcaneal osteomyelitis. 2. Open wound, left heel. 3. Left gastrocnemius contracture. POSTOPERATIVE DIAGNOSIS: 1. Left calcaneal osteomyelitis. 2. Open wound, left heel. 3. Left gastrocnemius contracture. PROCEDURE PERFORMED: 1. Left partial calcanectomy. 2. Left Achilles repair. 3. Left gastrocnemius recession. 4. Irrigation and debridement, left foot, including skin, subcutaneous tissue, and bone. FINDINGS: SPECIMENS: Resected portion of the calcaneus, as well as wound culture sent for culture and sensitiv ity, and pathology. ESTIMATED BLOOD LOSS: Minimal. INDICATIONS: The patient is a 57-year-old, history of diabetes and smoking, with a prolonged history of an open wound on the plantar aspect of his heel. The patient had exposed calcaneus. He had unde rgone extensive wound management options through the wound clinic, but was still having inability to close his wound and exposed bone. Based on the persistence of factors and the almost certainty of os teomyelitis with exposed bone for prolonged period of time, operative treatment consisting of partial calcanectomy and wound closure was recommended. The patient acknowledged he understood the potentia l risks of the operation including, but not limited to bleeding, infection, neurovascular damage, los s of limb or limb function, persistent wound problems, persistent infection, and anesthetic risks. H e acknowledged he understood the potential risks, planned procedure, and postoperative plan well, and had all questions answered prior to surgery. He gave his consent for the operative procedure. DESCRIPTION OF PROCEDURE: The patient was brought in the operating room and placed in a supine posit ion. IV antibiotics were held until cultures were obtained. A tourniquet was placed on the left thi gh, bump underneath the left hip and shoulder. The left lower extremity was prepped and draped in st andard sterile fashion. After Carson wrap exsanguination, tourniquet was inflated to 250. Attention wa s initially directed toward the gastroc recession. A longitudinal incision was made along the human resources advisor ior medial aspect of the lower leg at the level of the musculotendinous junction of the gastroc. Ski n and subcutaneous tissue were sharply incised. Sharp dissection was carried through the superficial posterior compartment fascia in line with the skin incision. The gastroc tendon was bluntly dissect ed, retracted with a speculum, and transected just distal to its musculotendinous junction. The subc utaneous tissue was closed with 3-0 Vicryl suture in interrupted fashion. The skin was closed with 4 -0 nylon interrupted sutures. Attention was then directed toward the heel. The skin and subcutaneous tissue were reflected as a fu ll-thickness flap off the calcaneal tuberosity. Utilizing a saw, osteotome, and rongeur, the affecte d portion of the calcaneus was removed. Enough was removed that the wound was able to be closed with out any undue tension. In order to accomplish this, the Achilles insertion had to be reflected. The wounds were copiously irrigated after culture was obtained. Utilizing cystoscopy tubing and sterile saline, copious fluid was drained through the wound. The skin margins were sharply ellipsed and any nonviable soft tissue was additionally removed. The Achilles was then reattached. A Juggernaut All -Suture [place] was placed in the calcaneal tuberosity. The suture ends were brought into the [place] s and the Achilles was reattached to the tuberosity. The ankle was brought past neutral dorsiflexion . The repair was found to hold. Attention was directed towards closure. Subcutaneous tissue was closed with 3-0 Vicryl suture in int errupted fashion. The skin was closed with a combination of 3-0 and 2-0 interrupted horizontal mattr ess sutures. The wounds were dressed with sterile Adaptic, 4 x 4, ABD. The left lower extremity was placed in a below-knee splint. The patient tolerated the procedure well and was taken to the recove ry room, extubated in stable condition postoperatively. All sponge, needle, and instrument counts we re reported as being correct. DRAINS: Ten-Romanian Norman-[place]. COMPLICATIONS: None. PLAN: The patient will be admitted for medical management. He will be nonweightbearing on his opera tive extremity. /[id number]/MODL
[2018-07-22] MEDS: traZODone 50 MG TAB PO SCH (21:03)
[2018-07-23] MEDS: oxyCODONE IR 5 MG TAB PO PRN ×6 (00:01→23:47)
[2018-07-23] MEDS: ceFAZolin 2 GM/DEXTROSE 100 ML IV SCH ×2 (00:01→12:34)
[2018-07-23] MEDS: METHOCARBAMOL 750 MG TAB PO PRN ×3 (05:41→21:20)
[2018-07-23] MEDS: ACETAMINOPHEN 500 MG TAB PO SCH ×3 (05:41→21:22)
--- NOTE | 2018-07-23 05:53 | SOAPPROG ---
SOAP Progress Note Assessment/Plan: Assessment: S/P L partial calcanectomy Pain in foot otherwise ok robson po + U/O Dressing/drain intact Min drain output toes with good cap refill Plan: OOB/PT Probable D/C tomorrow 07/23/18 05:51 Objective: Vital Signs Temp Pulse Resp BP Pulse Ox 37.6 C 85 19 127/68 H 97 07/23/18 04:00 07/23/18 04:00 07/23/18 04:00 07/23/18 04:00 07/23/18 04:00 Microbiology 07/22/18 12:50 Gram Stain - Final Foot - Eswab Laboratory Results 07/22/18 10:10 07/22/18 10:10 07/21/18 07/22/18 07/23/18 05:59 05:59 05:59 Intake Total 1070 Output Total 0 Balance 1070 ICD10 Worksheet Patient Problems: Problems Problem Status Onset Decubitus ulcer of foot, stage 3 Acute Diabetic ulcer of left foot associated with secondary diabetes mellitus Acute ESRD on dialysis Acute Elevated LFTs Acute
[2018-07-23] MEDS: ATORVASTATIN CALCIUM 40 MG TAB PO SCH (08:11)
[2018-07-23] MEDS: CARVEDILOL 6.25 MG TAB PO SCH ×2 (08:11→17:41)
[2018-07-23] MEDS: SERTRALINE HCL 50 MG TAB PO SCH (08:11)
[2018-07-23] MEDS: LISINOPRIL 10 MG TAB PO SCH (08:12)
[2018-07-23] MEDS: CALCIUM ACETATE 667 MG CAP PO SCH ×4 (08:13→17:42)
[2018-07-23] MEDS: glipiZIDE 10 MG TAB PO SCH (10:21)
--- NOTE | 2018-07-23 14:40 | PDHOSCONS ---
<Nichole Stoddard - Last Filed: 07/23/18 15:00> History and Physical - Chief Complaint Left heel pain - History of Present Illness Hospital medicine has been asked to consult for medical purposes by orthopedic surgeon Dr. Jose Carlos Patel. This is a 57 y/o male with history significant for ESRD on dialysis, diabetes, and COPD who underwent a left gastrocnemius recession, partial calcanectomy, and I&D of left foot yesterday after prolonged ailments to the left heel including enduring a wound VAC and surgical debridement unsuccessfully. Past Medical History 1. Coronary artery disease 2. CVA 3. End-stage renal disease, on dialysis Sat, , Sat 4. COPD, chronically on 3L NC O2 supplement @ HS 5. DM II 6. Diabetic Neuropathy 7. Glaucoma 8. Hypertension 9. Hyperlipidemia 10. Peripheral vascular disease 11. Diabetic retinopathy - blind L > R eye 12. Myocardial infarction (2014) Past Surgical History 1. Coronary artery surgery 2. Multiple left foot surgeries Social 1. Lives in Hygiene with his friend, Jaleesa 2. Smokes cannabis daily. Smoke 2-3 cigarettes/day. Denies alcohol use. History Information - Allergies/Home Medication List Allergies/Adverse Reactions: No Known Allergies Allergy (Verified 05/14/18 11:04) Home Medications: Albuterol [Proventil Inhaler HFA (*)] 2 puffs IH Q6HRS PRN 05/09/18 [Last Taken 07/22/18] Atorvastatin Calcium [Lipitor 40 mg (*)] 40 mg PO DAILY 05/09/18 [Last Taken ] Carvedilol [Coreg (*)] 6.25 mg PO BIDMEAL 05/09/18 [Last Taken 07/21/18] Gabapentin [Neurontin 300 MG (*)] 300 mg PO HS PRN 05/09/18 [Last Taken 07/22/18 ] Nitroglycerin [Nitrostat 0.4 mg (*)] 0.4 mg SL Q5M PRN 05/09/18 [Last Taken ] Sertraline HCl [Zoloft 50mg (*)] 50 mg PO DAILY 05/09/18 [Last Taken 07/22/18] glipiZIDE [Glucotrol] 10 mg PO BIDMEAL 05/09/18 [Last Taken 07/21/18] traZODone [traZODONE 50MG (*)] 50 mg PO HS 05/09/18 [Last Taken 07/21/18] Aspirin [Aspirin 81mg (*)] 81 mg PO DAILY 05/14/18 [Last Taken 07/20/18] Calcium Acetate [Phoslo (*)] 667 mg PO TIDMEAL 07/22/18 [Last Taken Unknown] LORazepam [Ativan (*)] 1 mg PO HS PRN 07/22/18 [Last Taken Unknown] busPIRone [Buspar (*)] 15 mg PO BID PRN 07/22/18 [Last Taken Unknown] guaiFENesin [Mucinex 600 MG (*)] 600 mg PO BID PRN 07/22/18 [Last Taken Unknown] oxyCODONE/APAP 5/325 [Percocet 5/325 (*)] 1 tab PO Q6HRS PRN 07/22/18 [Last Taken Unknown] I have personally reviewed and updated: family history, medical history, social history, surgical history Past Medical History: See HPI list - Surgical History Additional surgical history: See HPI list - Family History Positive for: non-pertinent - Social History Smoking Status: Current every day smoker Tobacco Use: Cigarettes Alcohol Use: None Drug Use: Marijuana Review of Systems Review of Systems: ROS: 10pt was reviewed & negative except for what was stated in HPI & below Constitutional: Reports: no symptoms EENMT: Reports: other (Blindness L > R eye d/t diabetic retinopathy) Cardiac: Reports: no symptoms Respiratory: Reports: shortness of breath (Chronic) Gastrointestinal: Reports: no symptoms Genitourinary: Reports: other (He does produce urine) Muscolosketal: Reports: muscle pain (LLE) Skin: Reports: no symptoms Neurological: Reports: pre-existing deficit Hematologic/Lymphatic: Reports: no symptoms Immunologic/Allergy: Reports: no symptoms Physical Exam Physical Exam: Lab data and imaging were reviewed WBC: 12.73 RBC/H/H: 4.49/11.7/37.2 Na: 130 K: 3.7 Temp Pulse Resp BP Pulse Ox 37.4 C 75 16 97/50 L 93 07/23/18 12:00 07/23/18 12:00 07/23/18 12:00 07/23/18 12:00 07/23/18 12:00 O2 (L/minute) 3 Constitutional: no apparent distress, appears nourished, uncomfortable Eyes: anicteric sclera, EOMI Ears, Nose, Mouth, Throat: moist mucous membranes, hearing normal, ears appear normal, no oral mucosal ulcers Cardiovascular: regular rate and rhythym, no murmur, rub, or gallop, No edema Peripheral Pulses: 0: dorsalis-pedis (L) (Unable to assess to cast; MARVIN drain in place with serosanguineous drainage: Radial 2+), 2+: dorsalis-pedis (R) (Radial 2+) Respiratory: no respiratory distress, no rales or rhonchi, clear to auscultation Gastrointestinal: normoactive bowel sounds, soft, non-tender abdomen, no palpable masses Genitourinary: no bladder fullness, no bladder tenderness Skin: warm, normal color, no rashes or abrasions, no fluctuance, no induration, No mottled Musculoskeletal: full muscle strength, no muscle tenderness, normal joint ROM, no joint effusions Neurologic: AAOx3, sensation intact bilaterally, CN II-XII Intact Psychiatric: interacting appropriately, not anxious, not encephalopathic, thought process linear Lymph, Heme, Immunologic: no cervical LAD, no supraclavicular LAD Lab Data & Imaging Review 07/22/18 10:10 07/22/18 10:10 WBC 12.73 10^3/uL (3.80-9.50) H 07/22/18 10:10 RBC 4.49 10^6/uL (4.40-6.38) 07/22/18 10:10 Hgb 11.7 g/dL (13.7-17.5) L 07/22/18 10:10 Hct 37.2 % (40.0-51.0) L 07/22/18 10:10 MCV 82.9 fL (81.5-99.8) 07/22/18 10:10 MCH 26.1 pg (27.9-34.1) L 07/22/18 10:10 MCHC 31.5 g/dL (32.4-36.7) L 07/22/18 10:10 RDW 17.3 % (11.5-15.2) H 07/22/18 10:10 Plt Count 404 10^3/uL (150-400) H 07/22/18 10:10 MPV 8.7 fL (8.7-11.7) 07/22/18 10:10 Neut % (Auto) 85.0 % (39.3-74.2) H 07/22/18 10:10 Lymph % (Auto) 6.4 % (15.0-45.0) L 07/22/18 10:10 Granite % (Auto) 6.3 % (4.5-13.0) 07/22/18 10:10 Eos % (Auto) 1.3 % (0.6-7.6) 07/22/18 10:10 Baso % (Auto) 0.5 % (0.3-1.7) 07/22/18 10:10 Nucleat RBC Rel Count 0.0 % (0.0-0.2) 07/22/18 10:10 Absolute Neuts (auto) 10.82 10^3/uL (1.70-6.50) H 07/22/18 10:10 Absolute Lymphs (auto) 0.81 10^3/uL (1.00-3.00) L 07/22/18 10:10 Absolute Monos (auto) 0.80 10^3/uL (0.30-0.80) 07/22/18 10:10 Absolute Eos (auto) 0.17 10^3/uL (0.03-0.40) 07/22/18 10:10 Absolute Basos (auto) 0.07 10^3/uL (0.02-0.10) 07/22/18 10:10 Absolute Nucleated RBC 0.00 10^3/uL (0-0.01) 07/22/18 10:10 Immature Gran % 0.5 % (0.0-1.1) 07/22/18 10:10 Immature Gran # 0.06 10^3/uL (0.00-0.10) 07/22/18 10:10 Sodium 130 mEq/L (135-145) L 07/22/18 10:10 Potassium 3.7 mEq/L (3.5-5.2) 07/22/18 10:10 Chloride 98 mEq/L (97-110) 07/22/18 10:10 Carbon Dioxide 22 mEq/l (22-31) 07/22/18 10:10 Anion Gap 10 mEq/L (6-14) 07/22/18 10:10 BUN 56 mg/dL (7-23) H 07/22/18 10:10 Creatinine 3.2 mg/dL (0.7-1.3) H 07/22/18 10:10 Estimated GFR 20 07/22/18 10:10 Glucose 166 mg/dL (70-100) H 07/22/18 10:10 POC Glucose 177 mg/dL (70-100) H 07/23/18 12:29 Calcium 8.2 mg/dL (8.5-10.4) L 07/22/18 10:10 Assessment & Plan Plan: Hospital medicine requested to consult for medical purposes by orthopedics. He endured prolonged left ankle infections and underwent a left gastrocnemius recession, partial calcanectomy, and I&D of left foot. He is POD #1. 1. LLE: Pain is 6/10 currently. With medication, it is 4/10. His biggest concern when he is discharged is receiving proper pain medications to alleviate his pain. Per pt, T#3 does not work. He does has a MARVIN drain to surgical site. -Pain management PO/IVP PRN -LLE elevation -PT to evaluate and treat -LLE NWB -Per ortho, possible discharge tomorrow -Left wound swab: gram stain unremarkable. Waiting on anaerobic -Receiving Ancef 2. ESRD on dialysis: MWF is his schedule. He will not receive dialysis today. He does produce urine. -Consulted nephrology. Dr. Baltazar to evaluate. -CBC/BMP from yesterday. Will repeat CBC/BMP tomorrow. 3. Diabetes: on PO glipizide. Held and placed on ISS until discharged from hospital. Glucose checks TID before meals. 4. Hypertension: on coreg, lisinopril 5. COPD: on chronic oxygen at nighttime. Continue use. On albuterol PRN. Diet: Regular VTE ppx: OOB, OOB to chair Code: Full Dispo: Admit to inpatient <Maksim Wisdom - Last Filed: 07/23/18 16:29> History and Physical - History of Present Illness Review of Systems Review of Systems: Physical Exam Physical Exam: Temp Pulse Resp BP Pulse Ox 37.5 C 75 16 97/52 L 93 07/23/18 15:53 07/23/18 15:53 07/23/18 15:53 07/23/18 15:53 07/23/18 15:53 O2 (L/minute) 2 Lab Data & Imaging Review 07/22/18 10:10 07/22/18 10:10 WBC 12.73 10^3/uL (3.80-9.50) H 07/22/18 10:10 RBC 4.49 10^6/uL (4.40-6.38) 07/22/18 10:10 Hgb 11.7 g/dL (13.7-17.5) L 07/22/18 10:10 Hct 37.2 % (40.0-51.0) L 07/22/18 10:10 MCV 82.9 fL (81.5-99.8) 07/22/18 10:10 MCH 26.1 pg (27.9-34.1) L 07/22/18 10:10 MCHC 31.5 g/dL (32.4-36.7) L 07/22/18 10:10 RDW 17.3 % (11.5-15.2) H 07/22/18 10:10 Plt Count 404 10^3/uL (150-400) H 07/22/18 10:10 MPV 8.7 fL (8.7-11.7) 07/22/18 10:10 Neut % (Auto) 85.0 % (39.3-74.2) H 07/22/18 10:10 Lymph % (Auto) 6.4 % (15.0-45.0) L 07/22/18 10:10 Granite % (Auto) 6.3 % (4.5-13.0) 07/22/18 10:10 Eos % (Auto) 1.3 % (0.6-7.6) 07/22/18 10:10 Baso % (Auto) 0.5 % (0.3-1.7) 07/22/18 10:10 Nucleat RBC Rel Count 0.0 % (0.0-0.2) 07/22/18 10:10 Absolute Neuts (auto) 10.82 10^3/uL (1.70-6.50) H 07/22/18 10:10 Absolute Lymphs (auto) 0.81 10^3/uL (1.00-3.00) L 07/22/18 10:10 Absolute Monos (auto) 0.80 10^3/uL (0.30-0.80) 07/22/18 10:10 Absolute Eos (auto) 0.17 10^3/uL (0.03-0.40) 07/22/18 10:10 Absolute Basos (auto) 0.07 10^3/uL (0.02-0.10) 07/22/18 10:10 Absolute Nucleated RBC 0.00 10^3/uL (0-0.01) 07/22/18 10:10 Immature Gran % 0.5 % (0.0-1.1) 07/22/18 10:10 Immature Gran # 0.06 10^3/uL (0.00-0.10) 07/22/18 10:10 Sodium 130 mEq/L (135-145) L 07/22/18 10:10 Potassium 3.7 mEq/L (3.5-5.2) 07/22/18 10:10 Chloride 98 mEq/L (97-110) 07/22/18 10:10 Carbon Dioxide 22 mEq/l (22-31) 07/22/18 10:10 Anion Gap 10 mEq/L (6-14) 07/22/18 10:10 BUN 56 mg/dL (7-23) H 07/22/18 10:10 Creatinine 3.2 mg/dL (0.7-1.3) H 07/22/18 10:10 Estimated GFR 20 07/22/18 10:10 Glucose 166 mg/dL (70-100) H 07/22/18 10:10 POC Glucose 177 mg/dL (70-100) H 07/23/18 12:29 Calcium 8.2 mg/dL (8.5-10.4) L 07/22/18 10:10 Assessment & Plan Plan: Reviewed chart, personally examined, discussed case and agree with plan outlined above by Jennifer Stoddard NP. Please see separate note for details.
[2018-07-23] MEDS ORDERED: D50W 25 GM/50 ML SYR IVP PRN (14:51)
--- NOTE | 2018-07-23 15:30 | ASMTCMCOM ---
CM Note CM Note Notes: Pt had planned partial calcanectomy, I&D of L foot. Pt is open with [facility] for wound care and unskilled care with a home health aid 2 days/wk. Resumption of [facility] RN orders needed at d/c. Pt reports he resides with a supportive friend and declines meals on wheels. Pt has a plan for his dialysis. OT rec home, PT rec home/outpatient. D/c plan of care: home with continued services of Family [facility] RN/GLUE SPREADER Date Signed: 07/23/2018 03:30 PM Electronically Signed By:DALLAS Ardon
[2018-07-23] MEDS: ONDANSETRON 4 MG/2 ML VIAL IVP PRN (16:19)
--- NOTE | 2018-07-23 16:31 | HOSPPROG ---
Hospitalist Progress Note Assessment/Plan: Case reviewed with Jennifer Stoddard TOWING PILOT, I agree with her plan with following exceptions : Briefly, 57yo M with h/o CAD ([place] in 2014), COPD with O2 dependence, ESRD on HD, DM here for operative management of left foot wound/osteomyelitis that had failed conservative management. Medicine consulted for management of chronic medical conditions, all of which appear to be at baseline. 1. ESRD: No indication for acute HD. He has plan to get short session (roughly 2 hours) tomorrow at outpatient HD center and then resume normal MWF schedule after that. 2. COPD with O2 dependence: Not exacerbated. Continue O2 PRN. 3. Diabetes: Good control in post-op setting (goal BG 110-180). Continue SSI. Can resume glipizide at discharge. 4. CAD: Resume aspirin when cleared by surgery. Continue statin, beta devaughn. 5. HTN: BP a touch low, likely due to pain meds. Continue home regimen and monitor for now. Thank you for this consult, we will continue to follow along. Objective: Vital Signs Temp Pulse Resp BP Pulse Ox 37.5 C 75 16 97/52 L 93 07/23/18 15:53 07/23/18 15:53 07/23/18 15:53 07/23/18 15:53 07/23/18 15:53 Microbiology 07/22/18 12:50 Gram Stain - Final Foot - Eswab Laboratory Results 07/22/18 10:10 07/22/18 10:10 07/22/18 07/23/18 07/24/18 05:59 05:59 05:59 Intake Total 1070 500 Output Total 0 Balance 1070 500 ICD10 Worksheet Patient Problems: Problems Problem Status Onset Decubitus ulcer of foot, stage 3 Acute Diabetic ulcer of left foot associated with secondary diabetes mellitus Acute ESRD on dialysis Acute Elevated LFTs Acute
--- NOTE | 2018-07-23 17:44 | GCON ---
[f rep st] CONSULTATION NEPHROLOGY CONSULTATION DATE OF CONSULTATION: 07/23/2018 REASON FOR THE CONSULTATION: End-stage renal disease. HISTORY OF PRESENT ILLNESS: I have been asked to evaluate the patient regarding his end-stage renal disease. He is a 57-year-old gentleman with a history of end-stage renal disease presumed secondary to some combination of diabetes, hypertension, and acute tubular necrosis. He reports starting dialy sis during hospitalization at [facility] when he presented with what sounds like acute myocardial infarction and cardiogenic shock. He has been dialysis dependent since that time, and cur rently dialyzed on a Saturday, Saturday, Saturday schedule at the [facility]. He underwe nt elective surgery yesterday for a nonhealing wound on his left foot. A gastrocnemius resection, pa rtial calcanectomy, and incision and drainage was performed. He has been doing well postoperatively, and his discharge home is tentatively planned for tomorrow. I have been asked to evaluate him regar ding his end-stage renal disease and dialysis. He did dialyze on Saturday, and apparently told staff a t the [facility] that he would not be in for dialysis today. He plans to call the [facility] tomorrow to see if he can dialyze for a short treatment, and then dialyze again on Saturday. Discu ssing this with personnel at the [facility], they are unaware of this plan. His labs yesterday morning documented a potassium of 3.7, a CO2 of 22. His hemoglobin was 11.7. He has been hemodynamically stable, though his blood pressure is currently running a bit low following his typica l antihypertensive medications. PAST MEDICAL HISTORY: 1. End-stage renal disease as outlined above. 2. Coronary artery disease. 3. History of stroke. 4. COPD on home O2. 5. Long-standing type 2 diabetes mellitus. 6. Hypertension. 7. Hyperlipidemia. 8. Peripheral vascular disease. PAST SURGICAL HISTORY: 1. Coronary artery bypass grafting. 2. Multiple surgeries on his left foot, including this current admission. ALLERGIES: No known drug allergies. CURRENT MEDICATIONS: Tylenol 1000 mg q.8 hours, Lipitor 40 mg daily, BuSpar 15 mg twice daily, PhosL o 3 times daily with meals, carvedilol 6.25 mg twice daily, gabapentin 300 mg nightly, Mucinex 600 mg twice daily, insulin as needed, lisinopril 10 mg daily, trazodone 50 mg nightly, and Zoloft 50 mg ni ghtly. SOCIAL HISTORY: He is originally from [place]. He is a current smoker, but denies alcohol use. FAMILY HISTORY: Positive for diabetes, but negative for renal disease he is aware of. REVIEW OF SYSTEMS: Positive for a nonhealing left foot wound, but denies any fevers. He denies any cramps or hypertension on dialysis. He claims that he does quite well, even when he skips dialysis t reatments on occasion. Aside from other positives noted in HPI, the remainder of his 10 organ system review is negative. PHYSICAL EXAM: GENERAL: He is in no acute distress. VITAL SIGNS: Blood pressure 97/52. Heart rat e is 75. Oxygenation is 93% on 2 L by nasal cannula. HEENT: Sclerae anicteric. Left cornea is lupe udy. Oral mucosa is moist. Oropharynx clear. NECK: Supple without JVD or lymphadenopathy. There are no carotid bruits. LUNGS: Slightly diminished breath sounds throughout, but essentially clear. BACK: No CVA tenderness. HEART: Regular rate and rhythm without murmurs, gallops, or rubs. CHEST : A tunneled dialysis catheter is present in his right chest wall. ABDOMEN: Soft and nontender wit h normoactive bowel sounds. There is no hepatosplenomegaly, masses, or bruits. EXTREMITIES: There is no lower extremity edema. His left foot is wrapped. SKIN: There are no skin rashes. NEURO: He is awake, alert, appropriate. There is no facial droop. : Sheikh catheter is absent. LABS: Sodium 130, potassium 3.7, chloride 98, CO2 22, BUN 56, creatinine 3.2, glucose 166, calcium 8 .2. These labs are all from yesterday morning. White blood cell count 12.7, hemoglobin 11.7, platel ets 404. IMPRESSION AND PLAN: 1. End-stage renal disease: The patient missed his regularly-scheduled dialysis today. Though he i s planning to attend an outpatient session tomorrow, this is not scheduled, and there is no guarantee that there will be space available. I think a more prudent plan would be to plan to dialyze him her e briefly tomorrow morning prior to his anticipated discharge. He is willing to do this. He appears quite stable from an electrolyte and volume standpoint currently. He has apparently refused arterio venous fistula placement, preferring to dialyze via a catheter chronically. We did discuss the infec tious hazards of this. 2. Nonhealing foot ulcer: He is now status post surgery, and appears to be doing well. 3. Hypertension: He is actually mildly hypotensive on his outpatient medications. I would hold the se in the morning if this continues. We will not ultrafilter him on dialysis. Thank you for the consult. We will follow with you. /[id number]/MODL
[2018-07-23] MEDS: INSULIN LISPRO 100 UNIT/ML SC SCH (17:50)
[2018-07-23] MEDS: traZODone 50 MG TAB PO SCH (21:21)
[2018-07-24] MEDS: oxyCODONE IR 5 MG TAB PO PRN ×2 (02:59→06:00)
[2018-07-24] MEDS: ACETAMINOPHEN 500 MG TAB PO SCH (05:56)
[2018-07-24 08:44] VITALS: BP 101/56
--- NOTE | 2018-07-24 09:08 | PDDCSUM ---
Discharge Summary Discharge Summary: discharge summary to follow patient to be dc'd today if cleared by all teams full summary to follow
[2018-07-24] MEDS: CALCIUM ACETATE 667 MG CAP PO SCH ×2 (09:47→13:58)
[2018-07-24] MEDS: LISINOPRIL 10 MG TAB PO SCH (09:47)
[2018-07-24] MEDS: ATORVASTATIN CALCIUM 40 MG TAB PO SCH (09:47)
[2018-07-24] MEDS: SERTRALINE HCL 50 MG TAB PO SCH (09:47)
[2018-07-24] MEDS: INSULIN LISPRO 100 UNIT/ML SC SCH (09:48)
[2018-07-24] MEDS: CARVEDILOL 6.25 MG TAB PO SCH (09:48)
--- NOTE | 2018-07-24 10:22 | HOSPPROG ---
Hospitalist Progress Note Assessment/Plan: 57yo M with h/o CAD ([place] in 2015), COPD with O2 dependence, ESRD on HD, DM here for operative management of left foot wound/osteomyelitis that had failed conservative management. Medicine consulted for management of chronic medical conditions, all of which appear to be at baseline. 1. ESRD: No indication for acute HD. He has plan to get short session (roughly 2 hours) today at outpatient HD center and then resume normal MWF schedule after that. Renal following. 2. Hyponatremia: Mild, somewhat expected in setting of mild volume overload from missing HD. 3. Anemia: Slight expected post-op drop. 4. COPD with O2 dependence: Not exacerbated. Continue O2 PRN. 5. Diabetes: Had one episode of hypoglycemia with AM. Stop SSI. Ok to resume glipizide at discharge. 6. CAD: Resume aspirin when cleared by surgery. Continue statin, beta devaughn. 7. HTN: BP a touch low, likely due to pain meds. Continue home regimen and monitor for now. Ok to discharge from medicine stand point. Subjective: No issues breathing. Had BG mid-70s this AM, said he felt a little dizzy with this. No leg swelling. Pain ok Objective: Vital Signs Temp Pulse Resp BP Pulse Ox 36.3 C 77 16 101/56 L 91 L 07/23/18 23:37 07/24/18 08:41 07/23/18 23:37 07/24/18 09:47 07/24/18 08:41 Microbiology 07/22/18 12:50 Gram Stain - Final Foot - Eswab Laboratory Results 07/24/18 04:25 07/24/18 04:25 07/23/18 07/24/18 07/25/18 05:59 05:59 05:59 Intake Total 1070 1000 Output Total 0 20 Balance 1070 980 - Physical Exam Constitutional: no apparent distress, appears nourished, not in pain Eyes: other (blind) Ears, Nose, Mouth, Throat: moist mucous membranes, hearing normal, ears appear normal, no oral mucosal ulcers Cardiovascular: regular rate and rhythym, no murmur, rub, or gallop Respiratory: no respiratory distress, no rales or rhonchi, clear to auscultation Gastrointestinal: normoactive bowel sounds, soft, non-tender abdomen, no palpable masses Genitourinary: no bladder fullness, no bladder tenderness, no renal bruits Skin: other (left ankle/foot in boot) Musculoskeletal: full muscle strength, no muscle tenderness, normal joint ROM Neurologic: AAOx3 Psychiatric: interacting appropriately ICD10 Worksheet Patient Problems: Problems Problem Status Onset Decubitus ulcer of foot, stage 3 Acute Diabetic ulcer of left foot associated with secondary diabetes mellitus Acute ESRD on dialysis Acute Elevated LFTs Acute
--- NOTE | 2018-07-24 10:29 | SOAPPROG ---
SOAP Progress Note Assessment/Plan: Assessment/Plan: ESRD: on HD MWF, missed HD yesterday. - Pt scheduled for HD here this am but now refusing. Labs and volume status ok , ok for him to be discharged and get routine dialysis at outpatient unit tomorrow. Hyponatremia: will be modulated with HD. AMADOR: continue home phos binder. Subjective: No acute events overnight. Pt states he feels well, no dyspnea, no swelling. He was scheduled for HD this am but refused, states his ride is on his way. Objective: Vital Signs Temp Pulse Resp BP Pulse Ox 36.3 C 77 16 101/56 L 91 L 07/23/18 23:37 07/24/18 08:41 07/23/18 23:37 07/24/18 09:47 07/24/18 08:41 Microbiology 07/22/18 12:50 Gram Stain - Final Foot - Eswab Laboratory Results 07/24/18 04:25 07/24/18 04:25 07/23/18 07/24/18 07/25/18 05:59 05:59 05:59 Intake Total 1070 1000 Output Total 0 20 Balance 1070 980 General: alert and oriented, no acute distress OP: Clear CV: RRR Resp: nonlabored respirations on RA Abd: Soft, NT Ext: no edema RLE Psych: cooperative Neuro: no asterixis Access: RIJ tunneled catheter with clean exit site ICD10 Worksheet Patient Problems: Problems Problem Status Onset Decubitus ulcer of foot, stage 3 Acute Diabetic ulcer of left foot associated with secondary diabetes mellitus Acute ESRD on dialysis Acute Elevated LFTs Acute
--- NOTE | 2018-07-24 12:35 | ASMTLACE ---
ALBERTAE Length of stay for Answers: 3 days current admission Acuity / Level of Answers: Yes Care: Did the patient have an inpatient admission? Comorbidities - select Answers: Cerebrovascular disease all that apply (CVA, TIA, aneurysms, vasc ular dementia) Chronic pulmonary disease Congestive heart failure Coronary Artery Disease Diabetes (uncontrolled or controlled) Moderate or severe liver or renal disease Peripheral vascular disease Other Notes: HTN; HLD # of Emergency department Answers: 1-2 visits in the last 6 months Score: 21 Date Signed: 07/24/2018 12:34 PM Electronically Signed By:DALLAS Ardon
--- NOTE | 2018-07-24 12:37 | ASMTCMCOM ---
CM Note CM Note Notes: Pt medically stable for d/c with friend/housemate and continued services of [facility] for wound care and unskilled home health aid. did not provide HHC order in [facility], Pat Chapo at [facility] confirms she can get resumption of care orders from PCP. Date Signed: 07/24/2018 12:37 PM Electronically Signed By:DALLAS Ardon
--- NOTE | 2018-07-24 15:32 | ASDISCHSUM ---
Discharge Information Plan Status:Home with Home Health Medically Cleared to Leave: Discharge Date:07/24/2018 01:28 PM CM D/C Disposition: ADT D/C Disposition:Home, Routine, Self-Care Projected Discharge Date:07/24/2018 11:00 AM Transportation at D/C: Discharge Delay Reason: Follow-Up Date:07/24/2018 11:00 AM Discharge Slot: Final Diagnosis: Placement Information Referral Type:*Home Health Care Services Referral ID:[id number] Provider Name:[facility] Address 1:[address] [address] Address 2: City:[place] Selection Factors: State:[place] Patient Contact Information Contact Name:ONI Relationship:Other Address:[address] Work Phone: City:[place] Alternate Phone: State/Zip Code:[place] [address] Email: Financial Information Financial Class:Medicare Primary Plan Desc:MEDICARE INPATIENT Primary Plan Number:[id number] Secondary Plan Desc:[place] Secondary Plan Number:[id number] Assessment Information LACE LACE Length of stay for Answers: 3 days current admission Acuity / Level of Answers: Yes Care: Did the patient have an inpatient admission? Comorbidities - select Answers: Cerebrovascular disease all that apply (CVA, TIA, aneurysms, vasc ular dementia) Chronic pulmonary disease Congestive heart failure Coronary Artery Disease Diabetes (uncontrolled or controlled) Moderate or severe liver or renal disease Peripheral vascular disease Other Notes: HTN; HLD # of Emergency department Answers: 1-2 visits in the last 6 months Score: 21 Date Signed: 07/24/2018 12:34 PM Electronically Signed By:DALLAS Ardon [facility] Progress Note CM Note CM Note Notes: Pt had planned partial calcanectomy, I&D of L foot. Pt is open with [facility] RN for wound care and unskilled care with a home health aid 2 days/wk. Resumption of HHC RN orders needed at d/c. Pt reports he resides with a supportive friend and declines meals on wheels. Pt has a plan for his dialysis. OT rec home, PT rec home/outpatient. D/c plan of care: home with continued services of [facility] RN/[employer] Date Signed: 07/23/2018 03:30 PM Electronically Signed By:DALLAS Ardon [facility] CM Progress Note CM Note CM Note Notes: Pt medically stable for d/c with friend/housemate and continued services of [facility] RN for wound care and unskilled home health aid. did not provide HHC order in [facility], Pat Chapo at [facility] confirms she can get resumption of care orders from PCP. Date Signed: 07/24/2018 12:37 PM Electronically Signed By:DALLAS Ardon Intervention Information
== END 2018-07-24 13:28 | disposition home health service (06) | DRG 629 ==
LOC: F1N 09:22 → F3N 10:02 → EDSTATUS 11:00 → F3N 15:14
PROVIDERS: ADMIT Orthopaedic Surgery Foot and Ankle Surgery; ATTEND Orthopaedic Surgery Foot and Ankle Surgery
PROC: 0QBM0ZZ Excision of Left Tarsal, Open Approach (ICD-10-PCS; principal; 2018-07-22 11:00)
PROC: 0LSP0ZZ Reposition Left Lower Leg Tendon, Open Approach (ICD-10-PCS; principal; 2018-07-22 11:00)
PROC: 5A1D70Z Performance of Urinary Filtration, Intermittent, Less than 6 Hours Per Day (ICD-10-PCS; 2018-07-24)
DX: E11.69 Type 2 diabetes mellitus with other specified complication (principal); M86.172 Other acute osteomyelitis, left ankle and foot; I12.0 Hypertensive chronic kidney disease with stage 5 chronic kidney disease or end stage renal disease; N18.6 End stage renal disease; E11.22 Type 2 diabetes mellitus with diabetic chronic kidney disease; E11.51 Type 2 diabetes mellitus with diabetic peripheral angiopathy without gangrene; E11.3291 Type 2 diabetes mellitus with mild nonproliferative diabetic retinopathy without macular edema, right eye; I25.10 Atherosclerotic heart disease of native coronary artery without angina pectoris; J44.9 Chronic obstructive pulmonary disease, unspecified; E78.5 Hyperlipidemia, unspecified; I25.2 Old myocardial infarction; F12.90 Cannabis use, unspecified, uncomplicated; G47.33 Obstructive sleep apnea (adult) (pediatric); Z72.0 Tobacco use; Z99.81 Dependence on supplemental oxygen; Z99.2 Dependence on renal dialysis
CPT/HCPCS: 97161-GP; 97165-GO; C1713; J0690; J1815; J2250; J2270; J2405; J2704; J3010

== ENCOUNTER 2018-08-13 14:17 | Inpatient (IN) | payer OTHER, MEDICAID ==
--- NOTE | 2018-08-13 14:48 | EDPHY ---
H & P Stated Complaint: BKA L side Time Seen by Provider: 08/13/18 14:47 HPI/ROS: CHIEF COMPLAINT: Ongoing left leg pain and infection HISTORY OF PRESENT ILLNESS: The patient has a history of osteomyelitis involving the left lower extremity, diabetes and chronic renal failure. The patient has tried debridement and antibiotics without improvement of his underlying infection. The patient is under the care of Dr. Jose Carlos Patel, Dr. Ángel León and Dr. Steven. At this point time his treating physicians have recommended amputation for treatment of his ongoing infection and ischemia. The patient was referred to the emergency department for admission for this condition. The patient complains of moderate to severe pain involving the left lower extremity. He does report decreased sensation to light touch involving the toes foot. The patient had recently been on a quinolone antibiotic. The patient denies any cough or upper respiratory symptoms. The patient denies any history of fall or trauma. He denies any acute numbness or weakness. REVIEW OF SYSTEMS: A comprehensive 10 point review of systems is otherwise negative aside from elements mentioned in the history of present illness. 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 dialysis, Diabetes, HTN - Social History Smoking Status: Current every day smoker - Physical Exam Exam: General Appearance: Elderly male, no acute distress Eyes: Pupils equal and round no pallor or injection ENT, Mouth: Mucous membranes moist Respiratory: There are no retractions, lungs are clear to auscultation Cardiovascular: Regular rate and rhythm Gastrointestinal: Abdomen is soft and nontender, no masses, bowel sounds normal Neurological: 5/5 strength noted all 4 extremities Skin: Stasis dermatitis and chronic ulcer noted to the left lower extremity, lower extremity dressing is intact Musculoskeletal: Neck is supple nontender Extremities: Left calf tenderness, left calf swelling erythema Constitutional: Initial Vital Signs Temperature (C) 36.6 C 08/13/18 14:23 Heart Rate 81 08/13/18 14:23 Respiratory Rate 16 08/13/18 14:23 Blood Pressure 120/60 08/13/18 14:23 O2 Sat (%) 97 08/13/18 14:23 O2 Delivery Mode Room Air Allergies/Adverse Reactions: No Known Allergies Allergy (Verified 08/13/18 14:23) Home Medications: Medication Instructions Recorded Albuterol [Proventil Inhaler HFA 2 puffs IH Q6HRS PRN 05/09/18 (*)] Atorvastatin Calcium [Lipitor 40 40 mg PO HS 05/09/18 mg (*)] Carvedilol [Coreg (*)] 6.25 mg PO BIDMEAL 05/09/18 Gabapentin [Neurontin 300 MG (*)] 300 mg PO BID PRN 05/09/18 Nitroglycerin [Nitrostat 0.4 mg 0.4 mg SL Q5M PRN 05/09/18 (*)] glipiZIDE [Glucotrol] 10 mg PO BIDMEAL 05/09/18 traZODone [traZODONE 50MG (*)] 50 mg PO HS 05/09/18 Aspirin [Aspirin 81mg (*)] 81 mg PO DAILY 05/14/18 Calcium Acetate [Phoslo (*)] 667 mg PO TIDMEAL 07/22/18 LORazepam [Ativan (*)] 1 mg PO HS PRN 07/22/18 busPIRone [Buspar (*)] 15 mg PO BID PRN 07/22/18 guaiFENesin [Mucinex 600 MG (*)] 600 mg PO BID PRN 07/22/18 Ciprofloxacin [Cipro] 500 mg PO DAILY 08/13/18 Hydrocodone/APAP 5/325 [[place] 1 - 2 tab PO Q4H PRN 08/13/18 5/325 (*)] Sertraline HCl [Zoloft 100mg (*)] 100 mg PO DAILY 08/13/18 Medical Decision Making ED Course/Re-evaluation: The patient had an IV established. He received IV morphine and Dilaudid for pain control. I reviewed the patient's past medical records including his recent hospitalization. Consultation was made with the hospitalist service at 4:[address] Jose Carlos Patel was consulted from Orthopedic surgery. Patient will be admitted to a medical-surgical floor bed in anticipation of surgery this evening. The patient is afebrile, normotensive and has no tachycardia. IV antibiotic therapy will be deferred to admitting surgeon and hospitalist. Differential Diagnosis: Differential diagnosis considered includes acute renal failure, hyperkalemia, osteomyelitis, cellulitis, abscess - Data Points Laboratory Results: Laboratory Results 08/13/18 15:20 08/13/18 15:20 08/13/18 08/13/18 15:20 15:20 WBC REJ RBC CASINO SHIFT MANAGER Hgb CASINO SHIFT MANAGER Hct CASINO SHIFT MANAGER MCV CASINO SHIFT MANAGER MCH CASINO SHIFT MANAGER MCHC CASINO SHIFT MANAGER RDW CASINO SHIFT MANAGER Plt Count CASINO SHIFT MANAGER MPV CASINO SHIFT MANAGER Neut % (Auto) Not Reported Lymph % (Auto) Not Reported [place] % (Auto) Not Reported Eos % (Auto) Not Reported Baso % (Auto) Not Reported Nucleat RBC Rel Count Not Reported Absolute Neuts (auto) Not Reported Absolute Lymphs (auto) Not Reported Absolute Monos (auto) Not Reported Absolute Eos (auto) Not Reported Absolute Basos (auto) Not Reported Absolute Nucleated RBC Not Reported Immature Gran % Not Reported Immature Gran # Not Reported Platelet Estimate Not Reported Sodium REJ Potassium REJ Chloride REJ Carbon Dioxide REJ Anion Gap REJ BUN REJ Creatinine REJ Estimated GFR REJ Glucose REJ Calcium REJ Medications Given: Discontinued Medications Hydromorphone HCl (Dilaudid) 1 mg IVP EDNOW ONE Stop: 08/13/18 15:16 Last Admin: 08/13/18 15:18 Dose: 1 mg Sodium Chloride (Ns) 500 mls @ 0 mls/hr IV EDNOW ONE; Wide Open PRN Reason: Protocol Stop: 08/13/18 16:02 Last Admin: 08/13/18 16:18 Dose: 500 mls Morphine Sulfate (Morphine) 4 mg IVP EDNOW ONE Stop: 08/13/18 15:31 Last Admin: 08/13/18 15:31 Dose: 4 mg Morphine Sulfate (Morphine) 4 mg IVP ONCE ONE Stop: 08/13/18 16:01 Last Admin: 08/13/18 16:19 Dose: 4 mg Departure - Departure Disposition: [facility] Acute Clinical Impression: Diabetic ulcer of left foot associated with secondary diabetes mellitus, Decubitus ulcer of foot, stage 3, ESRD on dialysis Condition: Fair
[2018-08-13] MEDS ORDERED: HYDROmorphONE/DILAUDID 2 MG/ML INJ IVP ONE (15:15)
[2018-08-13] MEDS ORDERED: NS 500 ML IV ONE (16:01)
[2018-08-13 16:15] LABS: PLATELET COUNT 620 10^3/uL (150-400)
[2018-08-13] MEDS ORDERED: ONDANSETRON 4 MG/2 ML VIAL IVP PRN ×3 (16:18→18:16)
[2018-08-13] MEDS ORDERED: ONDANSETRON DISINTEGRATING 4 MG TAB PO PRN (16:18)
[2018-08-13] MEDS ORDERED: MIDAZOLAM 2 MG/2 ML VIAL IVP ONE (17:00)
--- NOTE | 2018-08-13 17:03 | PDANEPAE ---
ANE History of Present Illness 57 yo for bka ANE Past Medical History - Cardiovascular History Hx Hypertension: Yes Hx Arrhythmias: No Hx Chest Pain: No Hx Coronary Artery / Peripheral Vascular Disease: Yes Hx CHF / Valvular Disease: Yes Hx Palpitations: No Cardiovascular History Comment: htn. hyperlipidemia. CAD s/p cabg. PVD - Pulmonary History Hx COPD: Yes Hx Asthma/Reactive Airway Disease: No Hx Recent Upper Respiratory Infection: No Hx Oxygen in Use at Home: No Hx Sleep Apnea: No Pulmonary History Comment: sherley triggers - Neurologic History Hx Cerebrovascular Accident: Yes Hx Seizures: No Hx Dementia: No Neurologic History Comment: hx of cva. diabetic neuropathy - Endocrine History Hx Diabetes: Yes Endocrine History Comment: type 2 - Renal History Hx Renal Disorders: Yes Renal History Comment: ESRD with dialysis - Liver History Hx Hepatic Disorders: Yes Hepatic History Comment: elevated LFTs - Neurological & Psychiatric Hx Hx Neurological and Psychiatric Disorders: No - Cancer History Hx Cancer: No - Congenital Disorder History Hx Congenital Disorders: No - GI History Hx Gastrointestinal Disorders: No - Other Health History Other Health History: glaucoma. 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 hard of hearing no aides - Chronic Pain History Chronic Pain: No - Surgical History Prior Surgeries: 05.15.18 i&d left heel with Marthaller HOANG Review of Systems Review of Systems: - Exercise capacity METS (RN): 2 METS ANE Patient History - Allergies Allergies/Adverse Reactions: No Known Allergies Allergy (Verified 08/13/18 14:23) - Home Medications Home Medications: Albuterol [Proventil Inhaler HFA (*)] 2 puffs IH Q6HRS PRN 05/09/18 [Last Taken 07/22/18] Atorvastatin Calcium [Lipitor 40 mg (*)] 40 mg PO DAILY 05/09/18 [Last Taken ] Carvedilol [Coreg (*)] 6.25 mg PO BIDMEAL 05/09/18 [Last Taken 07/21/18] Gabapentin [Neurontin 300 MG (*)] 300 mg PO HS PRN 05/09/18 [Last Taken 07/22/18 ] Nitroglycerin [Nitrostat 0.4 mg (*)] 0.4 mg SL Q5M PRN 05/09/18 [Last Taken ] Sertraline HCl [Zoloft 50mg (*)] 50 mg PO DAILY 05/09/18 [Last Taken 07/22/18] glipiZIDE [Glucotrol] 10 mg PO BIDMEAL 05/09/18 [Last Taken 07/21/18] traZODone [traZODONE 50MG (*)] 50 mg PO HS 05/09/18 [Last Taken 07/21/18] Aspirin [Aspirin 81mg (*)] 81 mg PO DAILY 05/14/18 [Last Taken 07/20/18] Calcium Acetate [Phoslo (*)] 667 mg PO TIDMEAL 07/22/18 [Last Taken Unknown] LORazepam [Ativan (*)] 1 mg PO HS PRN 07/22/18 [Last Taken Unknown] busPIRone [Buspar (*)] 15 mg PO BID PRN 07/22/18 [Last Taken Unknown] guaiFENesin [Mucinex 600 MG (*)] 600 mg PO BID PRN 07/22/18 [Last Taken Unknown] oxyCODONE/APAP 5/325 [Percocet 5/325 (*)] 1 tab PO Q6HRS PRN 07/22/18 [Last Taken Unknown] - NPO status NPO Status: no food or drink >8 hours NPO Since - Liquids (Date): 08/13/18 NPO Since - Liquids (Time): 06:00 NPO Since - Solids (Date): 08/12/18 - Smoking Hx Smoking Status: Current every day smoker ANE Labs/Vital Signs - Labs Result Diagrams: 08/13/18 16:04 08/13/18 16:30 - Vital Signs Blood Pressure: 173/81 Heart Rate: 75 Respiratory Rate: 18 O2 Sat (%): 100 Height: 5 ft 8 in Weight: 79.379 kg ANE Physical Exam - Airway Neck exam: FROM Mallampati Score: Class 2 Mouth exam: normal dental/mouth exam - Pulmonary Pulmonary: no respiratory distress - Cardiovascular Cardiovascular: regular rate and rhythym - ASA Status ASA Status: IV ANE Anesthesia Plan Anesthesia Plan: spinal
[2018-08-13] MEDS ORDERED: PROPOFOL/EMULSION 500 MG/50 ML BOTTLE IV ONE (17:12)
[2018-08-13] MEDS ORDERED: morphINE PF 5 MG/10 ML INJ ONE (17:12)
[2018-08-13] MEDS ORDERED: MIDAZOLAM 2 MG/2 ML VIAL ONE (17:14)
--- NOTE | 2018-08-13 17:40 | PDGENHP ---
History and Physical - Chief Complaint L foot osteo - History of Present Illness Mateusz rIaheta is a 57 yo M with a PMHx of CAD s/p CABG in 2015, COPD on 3L, ESRD on HD MWF, DM who presents to [facility] for LLE infection. He has been dealing with this issue for some time and has undergone debridement and courses of antibiotics without improvement. He has been following with Dr. Patel, Dr. León and Dr. Steven. They are recommending amputation as a treatment of the ongoing infection. He reports that he has been experiencing moderate ot significant pain in the LLE. He has decreased sensation in his L foot. He denies any chest pain, shortness of breath, n/v, d/c, edema, cough. He did miss his session of HD today due to being told to come to ED by Surgery. History Information - Allergies/Home Medication List Allergies/Adverse Reactions: No Known Allergies Allergy (Verified 08/13/18 14:23) Home Medications: Albuterol [Proventil Inhaler HFA (*)] 2 puffs IH Q6HRS PRN 05/09/18 [Last Taken 08/12/18] Atorvastatin Calcium [Lipitor 40 mg (*)] 40 mg PO HS 05/09/18 [Last Taken ] Carvedilol [Coreg (*)] 6.25 mg PO BIDMEAL 05/09/18 [Last Taken 08/12/18] Gabapentin [Neurontin 300 MG (*)] 300 mg PO BID PRN 05/09/18 [Last Taken ] Nitroglycerin [Nitrostat 0.4 mg (*)] 0.4 mg SL Q5M PRN 05/09/18 [Last Taken ] glipiZIDE [Glucotrol] 10 mg PO BIDMEAL 05/09/18 [Last Taken 08/12/18] traZODone [traZODONE 50MG (*)] 50 mg PO HS 05/09/18 [Last Taken 08/11/18] Aspirin [Aspirin 81mg (*)] 81 mg PO DAILY 05/14/18 [Last Taken 08/12/18] Calcium Acetate [Phoslo (*)] 667 mg PO TIDMEAL 07/22/18 [Last Taken 08/12/18] LORazepam [Ativan (*)] 1 mg PO HS PRN 07/22/18 [Last Taken 08/09/18] busPIRone [Buspar (*)] 15 mg PO BID PRN 07/22/18 [Last Taken 08/12/18] guaiFENesin [Mucinex 600 MG (*)] 600 mg PO BID PRN 07/22/18 [Last Taken 08/09/18 ] Ciprofloxacin [Cipro] 500 mg PO DAILY 08/13/18 [Last Taken Unknown] Hydrocodone/APAP 5/325 [[place] 5/325 (*)] 1 - 2 tab PO Q4H PRN 08/13/18 [Last Taken 08/13/18] Sertraline HCl [Zoloft 100mg (*)] 100 mg PO DAILY 08/13/18 [Last Taken Unknown] I have personally reviewed and updated: family history, medical history, social history, surgical history Past Medical History: See HPI list - Past Medical History coronary artery disease, COPD, diabetes type 2 - Surgical History Reports: coronary bypass surgery Additional surgical history: See HPI list - Family History Positive for: non-pertinent - Social History Smoking Status: Current every day smoker Review of Systems Review of Systems: ROS: 10pt was reviewed & negative except for what was stated in HPI & below Physical Exam Physical Exam: Temp Pulse Resp BP Pulse Ox 36.6 C 75 18 173/81 H 100 08/13/18 16:55 08/13/18 17:03 08/13/18 17:03 08/13/18 17:03 08/13/18 17:03 O2 (L/minute) 2 Constitutional: chronically ill appearing, unkempt Eyes: PERRL Ears, Nose, Mouth, Throat: moist mucous membranes Cardiovascular: regular rate and rhythym, No edema Respiratory: no respiratory distress, reduced air movement Gastrointestinal: soft, non-tender abdomen Skin: warm Musculoskeletal: pain with ROM Neurologic: AAOx3 Psychiatric: interacting appropriately Lab Data & Imaging Review 08/13/18 16:04 08/13/18 16:30 WBC 25.92 10^3/uL (3.80-9.50) H 08/13/18 16:04 RBC 3.66 10^6/uL (4.40-6.38) L 08/13/18 16:04 Hgb 9.3 g/dL (13.7-17.5) L 08/13/18 16:04 Hct 28.6 % (40.0-51.0) L 08/13/18 16:04 MCV 78.1 fL (81.5-99.8) L 08/13/18 16:04 MCH 25.4 pg (27.9-34.1) L 08/13/18 16:04 MCHC 32.5 g/dL (32.4-36.7) 08/13/18 16:04 RDW 18.6 % (11.5-15.2) H 08/13/18 16:04 Plt Count 620 10^3/uL (150-400) H 08/13/18 16:04 MPV 9.0 fL (8.7-11.7) 08/13/18 16:04 Neut % (Auto) 89.2 % (39.3-74.2) H 08/13/18 16:04 Lymph % (Auto) 4.5 % (15.0-45.0) L 08/13/18 16:04 [place] % (Auto) 4.8 % (4.5-13.0) 08/13/18 16:04 Eos % (Auto) 0.3 % (0.6-7.6) L 08/13/18 16:04 Baso % (Auto) 0.2 % (0.3-1.7) L 08/13/18 16:04 Nucleat RBC Rel Count 0.0 % (0.0-0.2) 08/13/18 16:04 Absolute Neuts (auto) 23.12 10^3/uL (1.70-6.50) H 08/13/18 16:04 Absolute Lymphs (auto) 1.17 10^3/uL (1.00-3.00) 08/13/18 16:04 Absolute Monos (auto) 1.24 10^3/uL (0.30-0.80) H 08/13/18 16:04 Absolute Eos (auto) 0.08 10^3/uL (0.03-0.40) 08/13/18 16:04 Absolute Basos (auto) 0.05 10^3/uL (0.02-0.10) 08/13/18 16:04 Absolute Nucleated RBC 0.00 10^3/uL (0-0.01) 08/13/18 16:04 Immature Gran % 1.0 % (0.0-1.1) 08/13/18 16:04 Immature Gran # 0.26 10^3/uL (0.00-0.10) H 08/13/18 16:04 RBC/WBC/PLT Morphology TNP 08/13/18 16:04 Platelet Estimate TNP 08/13/18 16:04 Sodium 127 mEq/L (135-145) L 08/13/18 16:30 Potassium 3.3 mEq/L (3.5-5.2) L 08/13/18 16:30 Chloride 95 mEq/L (97-110) L 08/13/18 16:30 Carbon Dioxide 21 mEq/l (22-31) L 08/13/18 16:30 Anion Gap 11 mEq/L (6-14) 08/13/18 16:30 BUN 70 mg/dL (7-23) H 08/13/18 16:30 Creatinine 3.1 mg/dL (0.7-1.3) H 08/13/18 16:30 Estimated GFR 21 08/13/18 16:30 Glucose 132 mg/dL (70-100) H 08/13/18 16:30 Calcium 7.9 mg/dL (8.5-10.4) L 08/13/18 16:30 Assessment & Plan Assessment: Chronic Osteomyelitis of LLE - Has undergone debridement and courses of antibiotics without improvement - Following with Dr. Patel who is recommending amputation which is to be performed this evening - Will hold off on abx for now, perioperative abx ordered by surgery - Blood cultures x2 collected Hyponatremia - Na 127 on admission, also 127 in June - Likely hypervolemic in setting of ESRD on HD - Repeat NA in the AM, HD as below CAD s/p CABG in 2014 - Currently denies any chest pain/discomfort - Continue home ASA, Atorvastatin, Coreg ESRD on dialysis (Acute) - Dialysis schedule on MW - Missed dialysis session today, will likely need dialysis tomorrow - Placed Nephrology consult this evening to be seen tomorrow COPD - Chronically on 3L NC - Not currently in an exacerbated state - Continue home Albuterol PRN HTN - BP WNL on admission - Continue home Lisinopril T2DM - Will hold home Glipizide - Ordered SSI as IP FEN: NPO for procedure DVT PPx: Holding in setting of OR tonight restart per surgery Code: FULL Dispo: Admit to Medicine
[2018-08-13] MEDS ORDERED: ALBUTEROL 60 PUFFS/8 GM MDI IH PRN (17:47)
[2018-08-13] MEDS ORDERED: GABAPENTIN 300 MG CAP PO PRN (17:47)
[2018-08-13] MEDS ORDERED: NITROGLYCERIN 0.4 MG BTL SL PRN (17:47)
[2018-08-13] MEDS ORDERED: NALOXONE HCL 0.4 MG/ML INJ IVP PRN ×2 (17:57→18:16)
[2018-08-13] MEDS ORDERED: HYDROmorphONE/DILAUDID 2 MG/ML INJ IVP PRN (18:16)
[2018-08-13] MEDS ORDERED: fentaNYL 100 MCG/2 ML INJ IVP PRN (18:16)
--- NOTE | 2018-08-13 18:23 | POSTOPPROG ---
Post Op Note Date of Operation: 08/13/18 Surgeon: Jose Carlos Patel Anesthesia: Spinal Pre-op Diagnosis: L foot infection Post-op Diagnosis: same Procedure: L traumatic symes amputation Inf/Abcess present in the surg proc area at time of surgery?: Yes Depth: Deep Incisional (Fascial) EBL: Minimal
[2018-08-13] MEDS: ACETAMINOPHEN 325 MG TAB PO PRN (21:24)
[2018-08-13] MEDS: ATORVASTATIN CALCIUM 40 MG TAB PO SCH (21:24)
[2018-08-13] MEDS: LORazepam 1 MG TAB PO PRN (21:24)
[2018-08-13] MEDS: traZODone 50 MG TAB PO SCH (21:25)
[2018-08-13] MEDS: CARVEDILOL 6.25 MG TAB PO SCH (21:26)
--- NOTE | 2018-08-13 22:38 | GOP ---
[f rep st] OPERATIVE REPORT DATE OF OPERATION: 08/13/2018 SURGEON: Jose Carlos Patel MD ANESTHESIA: Spinal. PREOPERATIVE DIAGNOSIS: Left foot infection. POSTOPERATIVE DIAGNOSIS: Left foot infection. PROCEDURE PERFORMED: Left foot traumatic Syme's amputation. FINDINGS: SPECIMENS: Culture sent to microbiology for evaluation. ESTIMATED BLOOD LOSS: Minimal. INDICATIONS: The patient is a 57-year-old with history of diabetes who had a longstanding left plant ar heel ulceration with exposed calcaneus. The wound was not healing. An attempt at salvage via par tial calcanectomy and wound closure was undertaken. The patient developed progressive problems with his foot and upon presentation to the office today had a gross infection with nonviable foot. While typically a below-knee amputation would be the best option, as the patient was significantly visually impaired it was hoped that and end bearing stump via Syme's amputation could be salvaged. Based on the level of his infection, it would not be possible to do this in a single stage. Furthermore, as t here was evidence of erythema tracking up the lower leg, it was not felt that a below-knee amputation would necessarily be safe at this time either. The patient acknowledged he understood the potential risks including but not limited to bleeding, inf ection, need for more proximal amputation, and multiple operations and anesthetic risks. He acknowle dged he understood the potential risks, planned procedure, and postoperative plan well, and had all q uestions answered. He gave his consent for the operative procedure. DESCRIPTION OF PROCEDURE: The patient who was brought in the operating room after IV antibiotics wer e administered. He was placed in a supine position. The patient was then propped up for spinal anes thetic and then returned to a supine position. The left foot was wrapped in an Ioban dressing. A to urniquet was placed on the left thigh, a bump underneath the left hip and shoulder. Left lower extre mity including the Ioban dressing was prepped and draped in standard sterile fashion. After marking the incision, Carson wrap exsanguination, tourniquet was inflated to 250. As much skin, both posteriorl y and anteriorly as could be salvaged based on his infection level was utilized for the skin incision . Skin and subcutaneous tissue were sharply incised. Sharp dissection was carried down to the osseo us level. A disarticulation at the ankle joint was performed. The bony structures of the malleoli w ere left in place at this time. The remaining aspect of the ankle was copiously irrigated with steri le saline. Nonviable tissue was excised. The posterior and anterior tibial arteries were then sutur e ligated. The tourniquet was deflated with no untoward bleeding seen. The stump was then dressed w ith multiple fluffed gauze, Kerlix, and an Carson wrap. He was taken to the recovery room in stable con dition postoperatively. All sponge, needle, and instrument counts were reported as being correct. DRAINS: None. COMPLICATIONS: None. PLAN: The patient will be admitted for medical management and antibiotics. Infectious Disease consu lt was placed. He would be returned to the operating room, likely for additional irrigation and debr idements, and possible completion of his Syme's amputation or conversion to a below-knee amputation. /[id number]/MODL
[2018-08-13] MEDS: oxyCODONE IR 5 MG TAB PO PRN (22:43)
[2018-08-13] MEDS: HYDROmorphONE/DILAUDID 1 MG/ML INJ IVP PRN (23:50)
[2018-08-14] MEDS: ACETAMINOPHEN 325 MG TAB PO PRN (02:49)
[2018-08-14] MEDS: oxyCODONE IR 5 MG TAB PO PRN ×2 (02:49→07:51)
[2018-08-14] MEDS: HYDROmorphONE/DILAUDID 1 MG/ML INJ IVP PRN ×5 (05:52→16:37)
--- NOTE | 2018-08-14 06:03 | SOAPPROG ---
SOAP Progress Note Assessment/Plan: Assessment: S/P ankle disarticulation Moderate pain Leandro po Dressing intact. No gross D/C Lowe leg edema improved Plan: Hope to salvage Symes level amputation d/t vision impairment Probable return to OR Saturday for I&D Abx per ID 08/14/18 06:00 Objective: Vital Signs Temp Pulse Resp BP Pulse Ox 36.8 C 76 16 141/67 H 98 08/14/18 02:51 08/14/18 02:51 08/14/18 02:51 08/14/18 02:51 08/14/18 02:51 Microbiology 08/13/18 17:52 Gram Stain - Final Foot - Eswab Laboratory Results 08/14/18 04:26 08/13/18 08/14/18 08/15/18 05:59 05:59 05:59 Intake Total 770 Output Total 20 Balance 750 ICD10 Worksheet Patient Problems: Problems Problem Status Onset Decubitus ulcer of foot, stage 3 Acute Diabetic ulcer of left foot associated with secondary diabetes mellitus Acute ESRD on dialysis Acute Elevated LFTs Acute
[2018-08-14 06:10] LABS: PLATELET COUNT 690 10^3/uL (150-400)
--- NOTE | 2018-08-14 07:18 | POSTANESTH ---
Post Anesthetic Evaluation Cardiovascular Status: Normal, Stable Respiratory Status: Normal, Stable Level of Consciousness/Mental Status: Can Participate in Eval Pain Control: Adequate, Prn Tx Ordered Nausea/Vomiting Control: Adequate, Prn Tx Ordered Complications Possibly Related to Anesthesia: None Noted
[2018-08-14] MEDS: CARVEDILOL 6.25 MG TAB PO SCH ×2 (07:51→18:35)
[2018-08-14] MEDS: CALCIUM ACETATE 667 MG CAP PO SCH ×3 (07:51→18:35)
--- NOTE | 2018-08-14 08:58 | ASMTLACE ---
MARTIN Acuity / Level of Answers: Yes Care: Did the patient have an inpatient admission? Comorbidities - select Answers: Cerebrovascular disease all that apply (CVA, TIA, aneurysms, vasc ular dementia) Chronic pulmonary disease Congestive heart failure Coronary Artery Disease Diabetes (uncontrolled or controlled) Moderate or severe liver or renal disease Other Notes: HTN; HLD # of Emergency department Answers: 3-4 visits in the last 6 months Score: 19 Date Signed: 08/14/2018 08:57 AM Electronically Signed By:Kathi Limon
[2018-08-14] MEDS: ASPIRIN 81 MG CHEWABLE TAB PO SCH (09:46)
[2018-08-14] MEDS: SERTRALINE HCL 100 MG TAB PO SCH (09:46)
--- NOTE | 2018-08-14 10:17 | ASMTCMCOM ---
CM Note CM Note Notes: 08/14/2018 Case Management Note Pt admitted for left leg osteomyelitis and renal failure. Met w/pt to discuss discharge needs. Pt A[facility] case manager specialist Cely [phone] [facility] Gallery Host Flor [phone] Food [employer] Baggage Handling Rampman Jackie [phone] Pt has dialysis 3 x/week at [facility] [address] [facility] Pt has Home Care services through [facility]. Unskilled care is provided by [facility] 2 x/ week. Faxed referral to [facility]. Pt requested referral for new PCP. Pt reports current PCP is in [place] making travel to appointments difficult.. Provided [facility] Clinics brochure as well as magnified copy of list of offices. Pt specifically seeking PCP in [place], referred to [facility]. PT and OT evals are pending. Per notes on chart review, surgery is tentatively planned for Saturday. Attempted SNF rehab discussion. Pt adamanent he will return home and resume all services prior to admission. Case Management d/c poc: to be determined. Case Management to follow. Date Signed: 08/14/2018 10:16 AM Electronically Signed By:Ines Lester RN
[2018-08-14] MEDS ORDERED: oxyCODONE IR 5 MG TAB PO SCH (12:45)
--- NOTE | 2018-08-14 12:49 | HOSPPROG ---
Hospitalist Progress Note Assessment/Plan: 57 yo M w cad, esrd, dm pod 1 from LLE for non healing wounds pain: uncontrolled add scheduled oxy 10 q4 dilaudid 1 q 2 prn schedule neurontin DM: add SS no long acting insulin cad: asa/statin/bb esrd: HD In AM dispo: inpt proph: sc heparin Subjective: case d.w dr king Objective: Vital Signs Temp Pulse Resp BP Pulse Ox 36.7 C 87 16 131/65 H 96 08/14/18 12:00 08/14/18 12:00 08/14/18 12:00 08/14/18 12:00 08/14/18 12:00 Microbiology 08/13/18 17:52 Gram Stain - Final Foot - Eswab Laboratory Results 08/14/18 04:26 08/14/18 04:26 08/13/18 08/14/18 08/15/18 05:59 05:59 05:59 Intake Total 770 Output Total 195 Balance 575 - Physical Exam Constitutional: no apparent distress, appears nourished, not in pain Eyes: PERRL, anicteric sclera Ears, Nose, Mouth, Throat: moist mucous membranes, hearing normal Cardiovascular: regular rate and rhythym, no murmur, rub, or gallop Respiratory: no respiratory distress, no rales or rhonchi, clear to auscultation Gastrointestinal: normoactive bowel sounds, soft, non-tender abdomen Genitourinary: no bladder fullness, No wise in urethra Skin: warm, normal color Musculoskeletal: full muscle strength, other (LE amp) Neurologic: AAOx3, sensation intact bilaterally Psychiatric: interacting appropriately ICD10 Worksheet Patient Problems: Problems Problem Status Onset Decubitus ulcer of foot, stage 3 Acute Diabetic ulcer of left foot associated with secondary diabetes mellitus Acute ESRD on dialysis Acute Elevated LFTs Acute
[2018-08-14] MEDS: oxyCODONE IR 5 MG TAB PO SCH ×3 (13:30→21:08)
--- NOTE | 2018-08-14 13:33 | PDCONSULT ---
Household Personal Assistant Note: Infectious Diseases Consult Note Impression: 57-year-old man with left calcaneal diabetic foot infection status post amputation of the foot. He has no active signs or symptoms of a systemic infection nor of spreading infection. Will withhold antibiotics absent perioperative prophylaxis per protocol and assess further based on culture results. 1. Left calcaneal diabetic foot infection status post amputation 08/13/18 2. Diabetes mellitus, type 2, poorly controlled with hemoglobin A1c of 7.8% 07/10 3. History of polymicrobial left calcaneal diabetic foot infection 4. Leukocytosis, improved Plan: 1. Hold antibiotics unless show signs or symptoms of a systemic infection 2. Will follow culture results 3. Infectious Disease will continue to follow Emmanuel Flores MD Infectious Diseases Chief Complaint: Worsening order of chronic left lower extremity wound Requesting Provider: Dr. Patel Reason for Referral: Consultation was requested by Dr. Patel regarding antimicrobial management. HPI: 57-year-old man who presented to the hospital with approximately a week of worsening odor of his left lower extremity chronic wound. His left heel wound initially began in approximately November of 2017 when he broke open the skin on some stairs. The wound continued to progress and was clearly infected by April of 2018 where he underwent debridement of a chronic ulceration with noted tracking down to the bone. He had polymicrobial growth from cultures from that procedure and was treated with approximately 6 weeks of cefepime and metronidazole between April of 2018 and 06/27/2018. Subsequent to this IV therapy underwent partial calcanectomy. He was started on oral ciprofloxacin on 07/31/2018 for 14 days which he has taken as prescribed. He underwent amputation of his left foot yesterday with a plan for reexploration tomorrow. He notes no fevers, chills, or night sweats at home prior to admission due to his blindness he was not able to see if there is erythema extending up his leg. He states his pain was actually improved in the left foot prior to admission but the odor was worse. He is preoccupied upon obtaining history with having his pain medications adjusted and provides minimal details with history. Reviewed patient medical records in [facility], and [facility] ([facility] Past Medical History: Chronic left lower extremity wound, diabetes mellitus, ESRD with HD via right sided tunneled catheter, glaucoma with impaired vision, COPD requiring supplemental oxygen at home Past Surgical History: CABG, left foot amputation 08/13/2018, debridement left calcaneal wound 05/14/2018 Social History: Currently smoke cigarettes, does not consume marijuana products Family History: No family members with recurrent infections Allergies: NKDA Medications: Reviewed in medical record and confirmed with patient. ROS: 10 organ systems reviewed; pertinent positives and negatives listed in the HPI, all other organ systems negative. Physical Exam: VS: Reviewed Gen: No acute distress; Breathing comfortably without supplemental oxygen; Able to speak in complete sentences Eyes: No conjunctival injection; No scleral icterus HENT: No gross deformities Neck: No limitation in range of motion Pulm: Breath sounds clear to the bases bilaterally; No wheeze, rhonchi, or rales CV: Normal S1 and S2, 4/6 systolic murmur; Regular rate and rhythm; No rubs or gallops; No lower extremity edema Abd: Not distended; Normo-active bowel sounds; Soft; Non-tender Skin: A full skin exam including exposed bilateral upper extremities, bilateral lower extremities to the knees, face, neck, abdomen, chest, and back performed; Skin intact, warm, with no rash MSK: Joints without erythema or edema; No gross limitation in range of motion; left lower extremity postsurgical dressing not taken down Ext: No clubbing or cyanosis Neuro: Awake and alert Psych: Normal mood and affect Labs/Imaging: All microbiology testing (culture and non-culture) reviewed in the medical record. Personally reviewed and interpreted the images of the following radiographs: No imaging obtained Medications Discontinued Medications Generic Name Dose Route Start Last Admin Trade Name Freq PRN Reason Stop Dose Admin Cefazolin Sodium/Dextrose 50 mls @ 200 mls/hr 08/13/18 17:04 08/13/18 21:31 Ancef 1 Gm (Premix) IV 08/13/18 17:18 Not Given ONCALL ONE Protocol Microbiology 05/15/18 09:39 Foot - Tissue Gram Stain - Final 05/15/18 09:39 Foot - Tissue Anaerobic Culture - Final Pseudomonas Aeruginosa Strep Agalactiae Group B Bacteroides Thetaiotaomicron 08/13/18 17:52 Foot - Eswab Gram Stain - Final 07/22/18 12:50 Foot - Eswab Gram Stain - Final 07/22/18 12:50 Foot - Eswab Anaerobic Culture - Final Proteus Vulgaris/Penneri Laboratory Tests 08/13/18 08/14/18 16:04 04:26 WBC 25.92 H 16.58 H Hgb 9.3 L 8.9 L Ongoing monitoring for antimicrobial toxicity with: CBC, BMP.
[2018-08-14] MEDS ORDERED: D50W 25 GM/50 ML SYR IVP PRN (13:36)
--- NOTE | 2018-08-14 14:44 | PDMN ---
Medical Necessity Medical necessity: Pt meets IP criteria per MD & MCG M-600; est los >2 mn for eval/tx of LLE osteomyelitis; requiring BKA; hx ESRD on dialysis, diabetes, COPD , CAD; per H&P & order 08/13/18
[2018-08-14] MEDS: GABAPENTIN 300 MG CAP PO SCH ×2 (16:36→21:07)
[2018-08-14] MEDS: INSULIN LISPRO 100 UNIT/ML SC SCH (18:46)
[2018-08-14] MEDS: traZODone 50 MG TAB PO SCH (21:07)
[2018-08-14] MEDS: ATORVASTATIN CALCIUM 40 MG TAB PO SCH (21:07)
[2018-08-15] MEDS: oxyCODONE IR 5 MG TAB PO SCH ×5 (01:08→22:07)
--- NOTE | 2018-08-15 06:57 | SOAPPROG ---
SOAP Progress Note Assessment/Plan: Assessment: S/P ankle disarticulation Moderate pain Leandro po Dressing intact. No gross D/C Lowe leg edema improved Plan: Hope to salvage Symes level amputation d/t vision impairment Probable return to OR Saturday for I&D Abx per ID 08/14/18 06:00 08/15/18 06:52 Con't pain Dressing intact, No D/C Plan: I&D, possible conversion to BKA tomorrow Objective: Vital Signs Temp Pulse Resp BP Pulse Ox 36.8 C 74 17 135/75 H 98 08/14/18 23:25 08/14/18 23:25 08/14/18 23:25 08/14/18 23:25 08/14/18 23:25 Microbiology 08/13/18 17:52 Gram Stain - Final Foot - Eswab Laboratory Results 08/14/18 04:26 08/14/18 04:26 08/14/18 08/15/18 08/16/18 05:59 05:59 05:59 Intake Total 770 950 Output Total 195 1175 Balance 575 -225 ICD10 Worksheet Patient Problems: Problems Problem Status Onset Decubitus ulcer of foot, stage 3 Acute Diabetic ulcer of left foot associated with secondary diabetes mellitus Acute ESRD on dialysis Acute Elevated LFTs Acute
[2018-08-15] MEDS: HYDROmorphONE/DILAUDID 1 MG/ML INJ IVP PRN ×5 (08:09→22:42)
[2018-08-15] MEDS: SERTRALINE HCL 100 MG TAB PO SCH (08:13)
[2018-08-15] MEDS: CARVEDILOL 6.25 MG TAB PO SCH ×2 (08:13→22:09)
[2018-08-15] MEDS: ASPIRIN 81 MG CHEWABLE TAB PO SCH (08:13)
[2018-08-15] MEDS: CALCIUM ACETATE 667 MG CAP PO SCH ×3 (08:13→22:09)
[2018-08-15] MEDS: GABAPENTIN 300 MG CAP PO SCH ×3 (08:13→22:07)
[2018-08-15] MEDS: INSULIN LISPRO 100 UNIT/ML SC SCH ×2 (09:10→13:08)
--- NOTE | 2018-08-15 11:08 | HOSPPROG ---
Hospitalist Progress Note Assessment/Plan: 57 yo M w cad, esrd, dm pod 1 from LLE for non healing wounds pain: uncontrolled add scheduled oxy 10 q4 dilaudid 1 q 2 prn- changed indication to "pain, breakthrough"- should be given if he has pain schedule neurontin to 300 tid DM: add SS no long acting insulin 08/15- will start lantus 8 cad: asa/statin/bb esrd: HD In AM dispo: inpt proph: sc heparin Subjective: case d/w dr king. some pain overnight, sounds as if there were issues w getting IV pain meds Objective: Vital Signs Temp Pulse Resp BP Pulse Ox 36.8 C 83 14 115/70 96 08/15/18 07:27 08/15/18 08:13 08/15/18 07:27 08/15/18 08:13 08/15/18 07:27 Microbiology 08/13/18 17:52 Gram Stain - Final Foot - Eswab Laboratory Results 08/14/18 04:26 08/14/18 04:26 08/14/18 08/15/18 08/16/18 05:59 05:59 05:59 Intake Total 770 950 300 Output Total 195 1175 100 Balance 575 -225 200 - Physical Exam Constitutional: no apparent distress, appears nourished Eyes: anicteric sclera Ears, Nose, Mouth, Throat: moist mucous membranes, hearing normal Cardiovascular: regular rate and rhythym, no murmur, rub, or gallop Respiratory: no respiratory distress, no rales or rhonchi Gastrointestinal: normoactive bowel sounds, soft, non-tender abdomen Genitourinary: no bladder fullness, No wise in urethra Skin: warm, normal color Musculoskeletal: full muscle strength, other (bka) Neurologic: AAOx3 ICD10 Worksheet Patient Problems: Problems Problem Status Onset Decubitus ulcer of foot, stage 3 Acute Diabetic ulcer of left foot associated with secondary diabetes mellitus Acute ESRD on dialysis Acute Elevated LFTs Acute
[2018-08-15 12:00] LABS: PLATELET COUNT 672 10^3/uL (150-400)
--- NOTE | 2018-08-15 12:32 | PCMIDPN ---
Assessment/Plan: Assessment: 57-year-old man with left calcaneal diabetic foot infection status post amputation of the foot on 08/13. Continues to be without signs or symptoms of active infection so we will withhold antibiotics and determine need after surgical exploration tomorrow and degree of amputation if more proximal. 1. Left calcaneal diabetic foot infection status post amputation 08/13 2. Diabetes mellitus, type 2, poorly controlled with hemoglobin A1c of 7.8% in June 2018 3. History of polymicrobial left calcaneal diabetic foot infection 4. Leukocytosis, stable Plan: 1. Continue to monitor off antibiotics 2. No need to treat recovered E faecalis as this was a swab from the now amputated left foot 3. Will continue to follow Emmanuel Flores MD Infectious Diseases 08/15/18 12:29 Subjective: No fever or chills. Continues to have pain at the left foot resection site including phantom pain feeling his toes on the left. Plan for more proximal operative exploration tomorrow. Finally able to get pain control in the evening and then this morning. He is planned to undergo dialysis today. He remains concerned that is insulin was not started at admission. Objective: Vital Signs Temp Pulse Resp BP Pulse Ox 36.8 C 83 14 115/70 96 08/15/18 07:27 08/15/18 08:13 08/15/18 07:27 08/15/18 08:13 08/15/18 07:27 Microbiology 08/13/18 17:52 Gram Stain - Final Foot - Eswab Laboratory Results 08/15/18 11:47 08/14/18 04:26 08/14/18 08/15/18 08/16/18 05:59 05:59 05:59 Intake Total 770 950 300 Output Total 195 1175 100 Balance 575 -225 200 Microbiology 08/13/18 17:52 Foot - Eswab Gram Stain - Final 08/13/18 17:52 Foot - Eswab Anaerobic Culture - Preliminary Enterococcus Faecalis 08/13/18 15:55 Blood Blood Culture - Preliminary 08/13/18 15:20 Blood Blood Culture - Preliminary Laboratory Tests 08/14/18 08/15/18 04:26 11:47 WBC 16.58 H 17.86 H Hgb 8.9 L 8.9 L Plt Count 690 H 672 H Absolute Neuts (auto) 14.03 H 15.27 H - Physical Exam General Appearance: no apparent distress, non-toxic EENT: No scleral icterus Respiratory: No accessory muscle use Neck: full range of motion, supple Extremities: other (Postsurgical dressing over the left amputation site of the foot not taken down today) Skin: No erythema - Time Spent With Patient Time Spent with Patient: greater than 35 minutes Time Spent with Patient: Greater than 35 minutes spent on this patients care, greater than 50% of time spent counseling, educating, and coordinating care regarding the above mentioned plan. ICD10 Worksheet Patient Problems: Problems Problem Status Onset Decubitus ulcer of foot, stage 3 Acute Diabetic ulcer of left foot associated with secondary diabetes mellitus Acute ESRD on dialysis Acute Elevated LFTs Acute
--- NOTE | 2018-08-15 14:59 | ASMTCMCOM ---
CM Note CM Note Notes: 08/15/2018 Case Management Note Discussed with this morning. Surgery planned for tomorrow. PT eval today indicates home with outpatient rehab. 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 Case Management d/c poc: to be determined. 08/14/2018 Case Management Note Pt admitted for left leg osteomyelitis and renal failure. Met w/pt to discuss discharge needs. 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 Unskilled care is provided by [facility] 2 x/ week. Faxed referral to [facility]. Pt requested referral for new PCP. Pt reports current PCP is in [place] making travel to appointments difficult.. Provided [facility] Clinics brochure as well as magnified copy of list of offices. Pt specifically seeking PCP in [place], referred to [facility]. PT and OT evals are pending. Per notes on chart review, surgery is tentatively planned for Saturday. Attempted SNF rehab discussion. Pt adamanent he will return home and resume all services prior to admission. Case Management d/c poc: to be determined. Case Management to follow. Date Signed: 08/15/2018 02:58 PM Electronically Signed By:Ines Lester RN
[2018-08-15] MEDS ORDERED: EPOETIN ALFA 10,000 UNIT/ML VIAL SC SCH (16:30)
--- NOTE | 2018-08-15 19:29 | GCON ---
[f rep st] CONSULTATION NEPHROLOGY CONSULTATION DATE OF CONSULTATION: 08/15/2018 REASON FOR CONSULTATION: Management of end-stage renal disease. HISTORY OF PRESENT ILLNESS: This is a pleasant 57-year-old male with a past medical history signific ant for longstanding type 2 diabetes, coronary artery disease, COPD, and congestive heart failure, wh o now presents status post a foot amputation relating to a longstanding diabetic foot ulcer. History is obtained from the patient, who is a fair historian, along with the medical staff and the medical record. The patient dialyzes at the [facility] under the care of Dr. Pat Esquivel on a , Saturday, Saturday schedule. He states the dialysis has been going well. He dialyzes through a r ight internal jugular catheter. To this point, he has refused a fistula. The patient has multiple morbidities relating to his diabetes. He has a history of coronary disease status post a CABG. He has had a longstanding left heel calcaneal infection, which has been treated with multiple rounds of antibiotics over the past 2 months. He has also undergone several rounds of debridement. At the time of admission, elective amputation of the left foot was desired due to ongoi ng uncontrolled infection and severe pain. The patient underwent surgery on the . The surgery went without complication. Postoperatively, management has focused on his glucose control and pain control. He is doing relatively well relating to these issues. He has not had any symptoms of cardiac issues. He is on O2 chronically for chroni c respiratory failure from COPD. We are now consulted by Dr. Sanz to assist the patient's renal di agnosis and management. PAST MEDICAL HISTORY: 1. ESRD. 2. Anxiety. 3. Reactive airway disease. 4. Diabetic retinopathy. 5. Coronary disease. 6. Depression. 7. Diabetes mellitus type 2. 8. Hypertension. 9. History of cerebrovascular accident. SURGICAL HISTORY: 1. Dialysis catheter placement. 2. Eye surgeries. 3. Coronary artery bypass grafting in 2016. 4. Intestinal perforation, status post partial colectomy. CURRENT MEDICATIONS: Tylenol p.r.n., albuterol as needed, aspirin 81 mg daily, Lipitor 40 mg daily, BuSpar 15 mg twice daily, calcium acetate 660 mg three times daily, Coreg 6.25 mg twice daily, gabape ntin 300 mg three times daily, Dilaudid p.r.n., Lantus insulin 8 units subcu at bedtime, Humalog insu kenna sliding scale, Ativan p.r.n., nitroglycerin p.r.n., Zofran p.r.n., oxycodone p.r.n., Zoloft 100 m g daily, and trazodone 50 mg at bedtime. FAMILY HISTORY: The patient was raised in [place], in the [place] area. He has a remote smoking hi story. REVIEW OF SYSTEMS: Other than pain in his foot, his complete review of systems is negative. PHYSICAL EXAM: GENERAL: At the time of exam, the patient is appropriate and alert. VITAL SIGNS: T emperature 36.8, pulse 83, and blood pressure 115/70. EYES: Sclerae clear. OROPHARYNX: Clear. NE CK: No lymphadenopathy or thyromegaly. The patient's left IJ tunneled dialysis catheter looks quite good. LUNGS: Clear to auscultation bilaterally. CARDIOVASCULAR: Regular rate and rhythm without gallops or rubs. ABDOMEN: Nontender. No organomegaly. /RECTAL: Deferred. EXTREMITIES: No ivon ma. The patient is status post a left foot amputation. NEUROLOGICAL: Notable for neuropathy. INTE GUMENT: Generally clear. LABORATORY STUDIES: White count 18, hematocrit 29.8, and platelet count 672. Sodium 133, potassium 3.3, and creatinine 3.1. IMPRESSION/PLAN: 1. End-stage renal disease. The patient will be dialyzed today. His next dialysis will be Saturday. We briefly discussed access placement. He is not interested at this time. 2. Anemia. The patient will be placed on erythropoietin. 3. Status post left foot infection. The patient is not showing signs of healing. He will be conver bryan to a below-knee amputation tomorrow. 4. Hypertension. This is at goal. 5. Diabetes. He is being controlled adequately on sliding scale insulin. Thank you for allowing us participate in this patient's care. We will continue to follow him closely with you. /[id number]/MODL
[2018-08-15] MEDS: ATORVASTATIN CALCIUM 40 MG TAB PO SCH (22:09)
[2018-08-15] MEDS: INSULIN GLARGINE 100 UNITS/ML UNIT SC SCH (22:12)
[2018-08-15] MEDS: traZODone 50 MG TAB PO SCH (22:12)
[2018-08-16] MEDS ORDERED: HEPARIN 50,000 UNIT/10 ML VIAL IV ONE (01:02)
[2018-08-16] MEDS ORDERED: HEPARIN 10,000 UNIT/10 ML MDV (1,000 UNIT/ML) IV ONE (01:02)
[2018-08-16] MEDS: HYDROmorphONE/DILAUDID 1 MG/ML INJ IVP PRN ×5 (04:40→21:50)
[2018-08-16] MEDS: oxyCODONE IR 5 MG TAB PO SCH ×7 (04:46→21:42)
[2018-08-16] MEDS: INSULIN LISPRO 100 UNIT/ML SC SCH ×4 (04:50→18:16)
[2018-08-16 05:38] LABS: PLATELET COUNT 660 10^3/uL (150-400)
[2018-08-16] MEDS ORDERED: MIDAZOLAM 2 MG/2 ML VIAL IVP ONE (07:57)
[2018-08-16] MEDS ORDERED: MIDAZOLAM 2 MG/2 ML VIAL ONE (07:58)
[2018-08-16] MEDS ORDERED: CEFAZOLIN 2 GM/DEXTROSE/100 ML BAG IV ONE (08:00)
[2018-08-16] MEDS ORDERED: ceFAZolin 2 GM/DEXTROSE 100 ML IV ONE (08:01)
--- NOTE | 2018-08-16 08:02 | PDANEPAE ---
ANE History of Present Illness chronic infection in LLE, here for I&D and possible amputation ANE Past Medical History - Cardiovascular History Hx Hypertension: Yes Hx Arrhythmias: No Hx Chest Pain: No Hx Coronary Artery / Peripheral Vascular Disease: Yes Hx CHF / Valvular Disease: Yes Hx Palpitations: No Cardiovascular History Comment: htn. hyperlipidemia. CAD s/p cabg. PVD - Pulmonary History Hx COPD: Yes Hx Asthma/Reactive Airway Disease: No Hx Recent Upper Respiratory Infection: No Hx Oxygen in Use at Home: Yes O2 in Use at Home (L/minute): 3 Hx Sleep Apnea: No Sleep Apnea Screening Result - Last Documented: Positive Pulmonary History Comment: sherley triggers - Neurologic History Hx Cerebrovascular Accident: Yes Hx Seizures: No Hx Dementia: No Neurologic History Comment: hx of cva. diabetic neuropathy - Endocrine History Hx Diabetes: Yes Endocrine History Comment: type 2 - Renal History Hx Renal Disorders: Yes Renal History Comment: ESRD with dialysis - Liver History Hx Hepatic Disorders: Yes Hepatic History Comment: elevated LFTs - Neurological & Psychiatric Hx Hx Neurological and Psychiatric Disorders: No - Cancer History Hx Cancer: No - Congenital Disorder History Hx Congenital Disorders: No - GI History Hx Gastrointestinal Disorders: No - Other Health History Other Health History: glaucoma. 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 hard of hearing no aides - Chronic Pain History Chronic Pain: No - Surgical History Prior Surgeries: 05.15.18 i&d left heel with Marthaller ANE Review of Systems Review of Systems: - Exercise capacity METS (RN): 2 METS ANE Patient History - Allergies Allergies/Adverse Reactions: No Known Allergies Allergy (Verified 08/13/18 14:23) - Home Medications Home Medications: Albuterol [Proventil Inhaler HFA (*)] 2 puffs IH Q6HRS PRN 05/09/18 [Last Taken 08/12/18] Atorvastatin Calcium [Lipitor 40 mg (*)] 40 mg PO HS 05/09/18 [Last Taken ] Carvedilol [Coreg (*)] 6.25 mg PO BIDMEAL 05/09/18 [Last Taken 08/12/18] Gabapentin [Neurontin 300 MG (*)] 300 mg PO BID PRN 05/09/18 [Last Taken ] Nitroglycerin [Nitrostat 0.4 mg (*)] 0.4 mg SL Q5M PRN 05/09/18 [Last Taken ] glipiZIDE [Glucotrol] 10 mg PO BIDMEAL 05/09/18 [Last Taken 08/12/18] traZODone [traZODONE 50MG (*)] 50 mg PO HS 05/09/18 [Last Taken 08/11/18] Aspirin [Aspirin 81mg (*)] 81 mg PO DAILY 05/14/18 [Last Taken 08/12/18] Calcium Acetate [Phoslo (*)] 667 mg PO TIDMEAL 07/22/18 [Last Taken 08/12/18] LORazepam [Ativan (*)] 1 mg PO HS PRN 07/22/18 [Last Taken 08/09/18] busPIRone [Buspar (*)] 15 mg PO BID PRN 07/22/18 [Last Taken 08/12/18] guaiFENesin [Mucinex 600 MG (*)] 600 mg PO BID PRN 07/22/18 [Last Taken 08/09/18 ] Ciprofloxacin [Cipro] 500 mg PO DAILY 08/13/18 [Last Taken Unknown] Hydrocodone/APAP 5/325 [[place] 5/325 (*)] 1 - 2 tab PO Q4H PRN 08/13/18 [Last Taken 08/13/18] Sertraline HCl [Zoloft 100mg (*)] 100 mg PO DAILY 08/13/18 [Last Taken Unknown] - NPO status NPO Since - Liquids (Date): 08/16/18 NPO Since - Liquids (Time): 00:00 NPO Since - Solids (Date): 08/16/18 NPO Since - Solids (Time): 00:00 - Smoking Hx Smoking Status: Current every day smoker ANE Labs/Vital Signs - Labs Result Diagrams: 08/16/18 04:20 08/16/18 04:20 - Vital Signs Blood Pressure: 135/65 Heart Rate: 78 Respiratory Rate: 18 O2 Sat (%): 95 Height: 172.72 cm Weight: 79.379 kg ANE Physical Exam - Airway Neck exam: FROM Mallampati Score: Class 1 Mouth exam: normal dental/mouth exam - Pulmonary Pulmonary: no respiratory distress, no rales or rhonchi - Cardiovascular Cardiovascular: regular rate and rhythym, no murmur, rub, or gallop - ASA Status ASA Status: IV, E ANE Anesthesia Plan Anesthesia Plan: general endotracheal anesthesia Total IV Anesthesia: No
--- NOTE | 2018-08-16 08:06 | HOSPPROG ---
Hospitalist Progress Note Assessment/Plan: 57 yo M w cad, esrd, dm, LLE non-healing wound here for amputation after failed conservative treatment. #LLE non-healing wound: - s/p Syme amputation 08/13 Dr Patel - s/p additional debridement and wound vac today - will likely need completion of BKA at later date - no indication for abx per ID #Acute on chronic pain: controlled - continue current regimen of scheduled oxy 10 q4, dilaudid 1mg q2h PRN for breakthrough - continue scheduled gabapentin 300 TID #Diabetes: fasting bg good, meal time not at goal - continue lantus 8u qhs - increase SSI from standard to high dose #ESRD - HD 08/15, additional session Saturday per renal #CAD: asa/statin/bb #Anemia: due to kidney dz. stable - EPO per renal VTE ppx: SQH Code: full Dispo: Remain inpatient Subjective: Returned to OR today for debridement and wound VAC placement. Upset that he hadn't gotten HD until yesterday. Otherwise doing ok, pain controlled. A bit depressed about amputation. Objective: Vital Signs Temp Pulse Resp BP Pulse Ox 36.9 C 78 18 135/65 H 95 08/16/18 08:04 08/16/18 08:04 08/16/18 08:04 08/16/18 08:04 08/16/18 08:04 Microbiology 08/13/18 17:52 Gram Stain - Final Foot - Eswab Laboratory Results 08/16/18 04:20 08/16/18 04:20 08/15/18 08/16/18 08/17/18 05:59 05:59 05:59 Intake Total 950 1100 Output Total 1175 1000 Balance -225 100 - Physical Exam Constitutional: no apparent distress, appears nourished, not in pain Eyes: other (dysconjugate gaze (chronic)) Ears, Nose, Mouth, Throat: moist mucous membranes Cardiovascular: regular rate and rhythym, no murmur, rub, or gallop Respiratory: no respiratory distress, no rales or rhonchi, clear to auscultation Gastrointestinal: normoactive bowel sounds, soft, non-tender abdomen, no palpable masses Genitourinary: no bladder fullness, no bladder tenderness, no renal bruits Skin: no rashes or abrasions, no fluctuance, no induration Musculoskeletal: other (left leg amputation above ankle) Neurologic: AAOx3 Psychiatric: interacting appropriately ICD10 Worksheet Patient Problems: Problems Problem Status Onset Decubitus ulcer of foot, stage 3 Acute Diabetic ulcer of left foot associated with secondary diabetes mellitus Acute ESRD on dialysis Acute Elevated LFTs Acute
[2018-08-16] MEDS ORDERED: ROCURONIUM 50 MG/5 ML VIAL ONE (08:09)
[2018-08-16] MEDS ORDERED: fentaNYL 100 MCG/2 ML INJ ONE ×3 (08:09→09:15)
[2018-08-16] MEDS ORDERED: PROPOFOL 200 MG/20 ML VIAL ONE (08:09)
[2018-08-16] MEDS ORDERED: LIDOCAINE 2% 100 MG/5 ML SYR ONE (08:09)
[2018-08-16] MEDS ORDERED: ONDANSETRON 4 MG/2 ML VIAL ONE (08:32)
[2018-08-16] MEDS ORDERED: SUGAMMADEX SODIUM 200 MG/2 ML VIAL IVP ONE (08:32)
[2018-08-16] MEDS ORDERED: DEXAMETHASONE 4 MG/ML VIAL ONE (08:32)
[2018-08-16] MEDS ORDERED: oxyCODONE IR 5 MG TAB PO PRN (08:52)
[2018-08-16] MEDS ORDERED: NALOXONE HCL 0.4 MG/ML INJ IVP PRN (08:52)
[2018-08-16] MEDS ORDERED: MEPERIDINE 25 MG/0.5 ML AMP IVP PRN (08:52)
[2018-08-16] MEDS ORDERED: DIAZEPAM 5 MG/ML 1 ML SYR IVP PRN (08:52)
[2018-08-16] MEDS ORDERED: HYDROmorphONE/DILAUDID 2 MG/ML INJ IVP PRN (08:52)
--- NOTE | 2018-08-16 09:12 | POSTANESTH ---
Post Anesthetic Evaluation Cardiovascular Status: Normal, Stable Respiratory Status: Normal, Stable Level of Consciousness/Mental Status: Can Participate in Eval, Alert and Oriented Pain Control: Adequate, Prn Tx Ordered Nausea/Vomiting Control: Adequate, Prn Tx Ordered Complications Possibly Related to Anesthesia: None Noted
--- NOTE | 2018-08-16 09:14 | POSTOPPROG ---
Post Op Note Date of Operation: 08/16/18 Surgeon: Jose Carlos Patel Anesthesia: GET(General Endotracheal) Pre-op Diagnosis: L ankle infection Post-op Diagnosis: same Procedure: I&D L ankle, application wound vac Inf/Abcess present in the surg proc area at time of surgery?: Yes Depth: Deep Incisional (Fascial) EBL: 50-100 Drains: Wound Vac
[2018-08-16] MEDS: fentaNYL 100 MCG/2 ML INJ IVP PRN ×2 (09:18→09:31)
--- NOTE | 2018-08-16 09:31 | GOP ---
[f rep st] OPERATIVE REPORT DATE OF OPERATION: 08/16/2018 SURGEON: Jose Carlos Patel MD ANESTHESIA: General. PREOPERATIVE DIAGNOSIS: Left ankle infection. POSTOPERATIVE DIAGNOSIS: Left ankle infection. PROCEDURE PERFORMED: 1. Irrigation and debridement of left ankle including skin, subcutaneous tissue and muscle. 2. Application of wound VAC. FINDINGS: ESTIMATED BLOOD LOSS: Minimal. INDICATIONS: The patient is a 57-year-old with a very involved history relative to his left lower ex tremity. He had recently undergone an ankle disarticulation for advanced foot infection. While typi ramiro a below-knee amputation would be the normal treatment course, based on the patient's significan t vision impairment, it was hoped that a Syme's level amputation could be salvaged. He is brought ba ck to the operating room for repeat irrigation and debridement and assessment. DESCRIPTION OF PROCEDURE: The patient was brought to the operating room after IV antibiotics were ad ministered. He was placed in a supine position where general anesthetic was administered. A tourniq uet was placed on his left thigh but not inflated. Left lower extremity was prepped and draped in st andard sterile fashion. There was no evidence of any gross purulence. There was some necrotic tendo n tissue which was debrided with tenotomy scissors. The skin margins appeared viable. The wounds we re then copiously irrigated with 6 L of sterile saline utilizing wide caliber cystoscopy tubing. A w ound VAC was applied, gaining favorable seal. The patient was taken to the recovery room, extubated in stable condition postoperatively. All sponge, needle, and instrument counts were reported as bein g correct. DRAINS: None. COMPLICATIONS: None. PLAN: The patient will be readmitted for wound VAC management and antibiotics under the care of the Infectious Disease service. Definitive attempted soft tissue coverage of the Syme amputation would b e considered at a later operative date. /[id number]/MODL
[2018-08-16] MEDS: ASPIRIN 81 MG CHEWABLE TAB PO SCH (10:36)
[2018-08-16] MEDS: CARVEDILOL 6.25 MG TAB PO SCH ×2 (10:36→18:14)
[2018-08-16] MEDS: GABAPENTIN 300 MG CAP PO SCH ×3 (10:36→21:42)
[2018-08-16] MEDS: SERTRALINE HCL 100 MG TAB PO SCH (10:36)
[2018-08-16] MEDS: CALCIUM ACETATE 667 MG CAP PO SCH ×3 (10:36→18:15)
--- NOTE | 2018-08-16 13:13 | SOAPPROG ---
SOAP Progress Note Assessment/Plan: Assessment/Plan: ESRD: on HD MWF. - HD done yesterday. - Next HD on Saturday. AMADOR: phos at goal, continue phos binder. Anemia: pt on epo. Subjective: No acute events overnight. Pt had HD yesterday, tolerated well. He went to OR this am, now has wound vac in place. He is very upset that he did not get his dialysis on Saturday. Objective: Vital Signs Temp Pulse Resp BP Pulse Ox 36.6 C 78 16 144/81 H 95 08/16/18 12:50 08/16/18 12:50 08/16/18 12:50 08/16/18 12:50 08/16/18 12:50 Microbiology 08/13/18 17:52 Gram Stain - Final Foot - Eswab Laboratory Results 08/16/18 04:20 08/16/18 04:20 08/15/18 08/16/18 08/17/18 05:59 05:59 05:59 Intake Total 950 1100 500 Output Total 1175 1000 Balance -225 100 500 General: alert and oriented, no acute distress OP: Clear CV: RRR Resp: nonlabored respirations Abd: soft, NT/ND Ext: no edema RLE, LLE with wound vac in place Neuro: CN II-XII Grossly intact, no asterixis Psych: cooperative Access: RIJ tunneled catheter ICD10 Worksheet Patient Problems: Problems Problem Status Onset Decubitus ulcer of foot, stage 3 Acute Diabetic ulcer of left foot associated with secondary diabetes mellitus Acute ESRD on dialysis Acute Elevated LFTs Acute
--- NOTE | 2018-08-16 15:19 | PCMIDPN ---
Assessment/Plan: # Left calcaneal diabetic foot infection status post amputation 08/13 for diabetic foot infection of calcaneus. s/p I&D L ankle today because of slow healing wound and application wound vac. May need BKA # E faecalis in wound likely reflect colonization # Diabetes mellitus, type 2, poorly controlled with hemoglobin A1c of 7.8% in June 2018 # Leukocytosis, stable # ESRD: on HD MWF. Plan: 1. Continue to monitor off antibiotics 2. No need to treat recovered E faecalis as this was a swab from the now amputated left foot 3. Will continue to follow every couple days 4. Does not need repeat doses cefazolin for periop ppx as has ESRD and 1 dose will last 48hr Subjective: patient feeling well post op upset about his initial care at [facility], states I was sent in to "calm him down". Told me Dr. Flores really helped get his care sorted out Objective: Vital Signs Temp Pulse Resp BP Pulse Ox 36.9 C 87 16 126/61 H 90 L 08/16/18 13:51 08/16/18 13:51 08/16/18 13:51 08/16/18 13:51 08/16/18 13:51 Microbiology 08/13/18 17:52 Gram Stain - Final Foot - Eswab Laboratory Results 08/16/18 04:20 08/16/18 04:20 08/15/18 08/16/18 08/17/18 05:59 05:59 05:59 Intake Total 950 1100 500 Output Total 1175 1000 Balance -225 100 500 - Physical Exam General Appearance: alert, no apparent distress Respiratory: No accessory muscle use Neck: supple Extremities: other (L ankle amputation w wound vac in place ; no skin abn noted) Skin: No rash Neuro/Psych: alert, normal mood/affect, oriented x 3 - Time Spent With Patient Time Spent with Patient: greater than 25 minutes Time Spent with Patient: Greater than 25 minutes spent on this patients care, greater than 50% of time spent counseling, educating, and coordinating care regarding the above mentioned plan. ICD10 Worksheet Patient Problems: Problems Problem Status Onset Decubitus ulcer of foot, stage 3 Acute Diabetic ulcer of left foot associated with secondary diabetes mellitus Acute ESRD on dialysis Acute Elevated LFTs Acute
[2018-08-16] MEDS ORDERED: ceFAZolin 2 GM/DEXTROSE 100 ML IV SCH (16:00)
[2018-08-16] MEDS: ATORVASTATIN CALCIUM 40 MG TAB PO SCH (21:42)
[2018-08-16] MEDS: traZODone 50 MG TAB PO SCH (21:42)
[2018-08-16] MEDS: INSULIN GLARGINE 100 UNITS/ML UNIT SC SCH (21:43)
[2018-08-17] MEDS: HYDROmorphONE/DILAUDID 1 MG/ML INJ IVP PRN ×6 (01:50→21:22)
[2018-08-17] MEDS: oxyCODONE IR 5 MG TAB PO SCH ×6 (01:51→21:23)
[2018-08-17] MEDS: INSULIN LISPRO 100 UNIT/ML SC SCH ×3 (08:12→16:26)
[2018-08-17] MEDS: CALCIUM ACETATE 667 MG CAP PO SCH ×3 (08:17→18:16)
[2018-08-17] MEDS: CARVEDILOL 6.25 MG TAB PO SCH ×2 (08:17→18:16)
[2018-08-17] MEDS: SERTRALINE HCL 100 MG TAB PO SCH (08:17)
[2018-08-17] MEDS: ASPIRIN 81 MG CHEWABLE TAB PO SCH (08:17)
[2018-08-17] MEDS: GABAPENTIN 300 MG CAP PO SCH ×3 (08:17→21:23)
--- NOTE | 2018-08-17 08:34 | HOSPPROG ---
Hospitalist Progress Note Assessment/Plan: 57 yo M w cad, esrd, dm, LLE non-healing wound here for amputation after failed conservative treatment. #LLE non-healing wound: - s/p Syme amputation 08/13 Dr Patel - s/p additional debridement and wound vac today - will likely need completion of BKA at later date - no indication for abx per ID #Acute on chronic pain: controlled - continue scheduled oxy 10 q4 - space out dilaudid 1mg q2h ->q3h PRN for breakthrough, I discussed this change with him and he is agreeable. will need to wean further over coming days - continue scheduled gabapentin 300 TID #Diabetes: fasting bg good, had one elevated meal time bg yesterday - will continue same regimen of lantus 8u qhs, high dose SSI #ESRD - HD 08/15, additional session tomorrow per renal #CAD: asa/statin/bb #Anemia: due to kidney dz. stable - EPO per renal VTE ppx: SQH Code: full Dispo: Remain inpatient Subjective: Had a good night, pain controlled. No n/v. No fevers. Objective: Vital Signs Temp Pulse Resp BP Pulse Ox 36.6 C 70 16 164/88 H 94 08/17/18 07:40 08/17/18 08:17 08/17/18 07:40 08/17/18 08:17 08/17/18 07:40 Microbiology 08/13/18 17:52 Gram Stain - Final Foot - Eswab Laboratory Results 08/17/18 04:17 08/17/18 04:17 08/16/18 08/17/18 08/18/18 05:59 05:59 05:59 Intake Total 1100 1000 Output Total 1000 Balance 100 1000 - Physical Exam Constitutional: no apparent distress, appears nourished, not in pain Eyes: PERRL, EOMI Ears, Nose, Mouth, Throat: moist mucous membranes, hearing normal, ears appear normal, no oral mucosal ulcers Cardiovascular: regular rate and rhythym, no murmur, rub, or gallop Respiratory: no respiratory distress, no rales or rhonchi, clear to auscultation Gastrointestinal: normoactive bowel sounds, soft, non-tender abdomen, no palpable masses Genitourinary: no bladder fullness, no bladder tenderness, no renal bruits Skin: other (left stump wrapped) Musculoskeletal: full muscle strength Neurologic: AAOx3 Psychiatric: interacting appropriately ICD10 Worksheet Patient Problems: Problems Problem Status Onset Decubitus ulcer of foot, stage 3 Acute Diabetic ulcer of left foot associated with secondary diabetes mellitus Acute ESRD on dialysis Acute Elevated LFTs Acute
--- NOTE | 2018-08-17 10:42 | SOAPPROG ---
SOAP Progress Note Assessment/Plan: Assessment: 1. ESRD Next Hd Saturday 2. s/p additional LLE surgery Apparently now with reasonable blood supply. Wound Vac in place 3. Anemia Follow 4. DC this week Plan: 08/17/18 10:40 Subjective: In good spirits Objective: Vital Signs Temp Pulse Resp BP Pulse Ox 36.6 C 70 16 164/88 H 94 08/17/18 07:40 08/17/18 08:17 08/17/18 07:40 08/17/18 08:17 08/17/18 07:40 Microbiology 08/13/18 17:52 Gram Stain - Final Foot - Eswab Laboratory Results 08/17/18 04:17 08/17/18 04:17 08/16/18 08/17/18 08/18/18 05:59 05:59 05:59 Intake Total 1100 1000 Output Total 1000 Balance 100 1000 Physical Exam - Physical Exam General Appearance: no apparent distress Respiratory: lungs clear Cardiac/Chest: regular rate, rhythm Extremities: other (trace edema) Neuro/Psych: oriented x 3 ICD10 Worksheet Patient Problems: Problems Problem Status Onset Decubitus ulcer of foot, stage 3 Acute Diabetic ulcer of left foot associated with secondary diabetes mellitus Acute ESRD on dialysis Acute Elevated LFTs Acute
--- NOTE | 2018-08-17 11:56 | SOAPPROG ---
SOAP Progress Note Assessment/Plan: Assessment: S/P ankle disarticulation Moderate pain Leandro po Dressing intact. No gross D/C Lowe leg edema improved Plan: Hope to salvage Symes level amputation d/t vision impairment Probable return to OR Saturday for I&D Abx per ID 08/14/18 06:00 08/15/18 06:52 Con't pain Dressing intact, No D/C Plan: I&D, possible conversion to BKA tomorrow 08/17/18 11:55 Pain markedly improved Leandro po Dressing /Vac intact Swelling/erythema improved Repeat I&D Saturday. Want to try to salvage Symes level if possible Objective: Vital Signs Temp Pulse Resp BP Pulse Ox 36.6 C 64 19 123/66 H 91 L 08/17/18 11:14 08/17/18 11:14 08/17/18 11:14 08/17/18 11:14 08/17/18 11:14 Microbiology 08/13/18 17:52 Gram Stain - Final Foot - Eswab Laboratory Results 08/17/18 04:17 08/17/18 04:17 08/16/18 08/17/18 08/18/18 05:59 05:59 05:59 Intake Total 1100 1000 Output Total 1000 Balance 100 1000 ICD10 Worksheet Patient Problems: Problems Problem Status Onset Decubitus ulcer of foot, stage 3 Acute Diabetic ulcer of left foot associated with secondary diabetes mellitus Acute ESRD on dialysis Acute Elevated LFTs Acute
[2018-08-17] MEDS ORDERED: POLYETHYLENE GLYCOL 3350 17 GM PKT PO PRN (13:10)
[2018-08-17] MEDS: traZODone 50 MG TAB PO SCH (20:30)
[2018-08-17] MEDS: INSULIN GLARGINE 100 UNITS/ML UNIT SC SCH (20:32)
[2018-08-17] MEDS: SENNOSIDES/DOCUSATE SODIUM TAB PO SCH (20:32)
[2018-08-17] MEDS: ATORVASTATIN CALCIUM 40 MG TAB PO SCH (20:32)
[2018-08-18] MEDS: HYDROmorphONE/DILAUDID 1 MG/ML INJ IVP PRN ×4 (00:32→12:19)
[2018-08-18] MEDS: oxyCODONE IR 5 MG TAB PO SCH ×6 (02:00→22:25)
[2018-08-18] MEDS: ACETAMINOPHEN 325 MG TAB PO PRN (05:36)
--- NOTE | 2018-08-18 07:59 | SOAPPROG ---
SOAP Progress Note Assessment/Plan: Assessment: S/P ankle disarticulation Moderate pain Leandro po Dressing intact. No gross D/C Lowe leg edema improved Plan: Hope to salvage Symes level amputation d/t vision impairment Probable return to OR Saturday for I&D Abx per ID 08/14/18 06:00 08/15/18 06:52 Con't pain Dressing intact, No D/C Plan: I&D, possible conversion to BKA tomorrow 08/17/18 11:55 Pain markedly improved Leandro po Dressing /Vac intact Swelling/erythema improved Repeat I&D Saturday. Want to try to salvage Symes level if possible 08/18/18 07:57 Pain improved Feeling much better Vac intact, moderate D/C Plan : I&D tomorrow Objective: Vital Signs Temp Pulse Resp BP Pulse Ox 36.6 C 78 17 145/86 H 92 08/18/18 07:46 08/18/18 07:46 08/18/18 07:46 08/18/18 07:46 08/18/18 07:46 Laboratory Results 08/17/18 04:17 08/17/18 04:17 08/17/18 08/18/18 08/19/18 05:59 05:59 05:59 Intake Total 1000 Balance 1000 ICD10 Worksheet Patient Problems: Problems Problem Status Onset Decubitus ulcer of foot, stage 3 Acute Diabetic ulcer of left foot associated with secondary diabetes mellitus Acute ESRD on dialysis Acute Elevated LFTs Acute
[2018-08-18] MEDS: INSULIN LISPRO 100 UNIT/ML SC SCH ×4 (08:13→18:49)
[2018-08-18] MEDS: GABAPENTIN 300 MG CAP PO SCH (08:22)
[2018-08-18] MEDS: SERTRALINE HCL 100 MG TAB PO SCH (08:22)
[2018-08-18] MEDS: ASPIRIN 81 MG CHEWABLE TAB PO SCH (08:22)
[2018-08-18] MEDS: CALCIUM ACETATE 667 MG CAP PO SCH ×3 (08:22→18:31)
[2018-08-18] MEDS: SENNOSIDES/DOCUSATE SODIUM TAB PO SCH ×2 (08:24→22:24)
[2018-08-18] MEDS: CARVEDILOL 6.25 MG TAB PO SCH ×2 (08:24→18:31)
--- NOTE | 2018-08-18 14:22 | HOSPPROG ---
Hospitalist Progress Note Assessment/Plan: 57 yo M w cad, esrd, dm, LLE non-healing wound here for amputation after failed conservative treatment. #LLE non-healing wound: - s/p partial amputation 08/13 Dr Patel - s/p additional debridement and wound vac 08/16 - Dr Patel planning additional I&D tomorrow (08/19) - no indication for abx per ID #Acute on chronic pain: uncontrolled. has component of phantom limb pain - will increase dilaudid dose from 1->1.2mg but space out frequency from q3-> q4h PRN - continue scheduled oxy 10 q4 - increase gabapentin 300->400mg TID #Diabetes: BG controlled - will continue current regimen of lantus 8u qhs, high dose SSI #ESRD - HD 08/15, 08/18 #CAD: asa/statin/bb #Anemia: due to kidney dz. stable - EPO per renal VTE ppx: SQH Code: full Dispo: Remain inpatient. Therapy services recommending home health, will re- assess after additional surgeries. Subjective: Had a bad night. Pain not controlled. Does of dilaudid isn't providing relief, wants higher dose. Having phantom limb pain. Had HD this morning. Objective: Vital Signs Temp Pulse Resp BP Pulse Ox 36.6 C 74 17 140/79 H 92 08/18/18 07:46 08/18/18 08:24 08/18/18 07:46 08/18/18 08:24 08/18/18 07:46 Microbiology 08/13/18 17:52 Gram Stain - Final Foot - Eswab Laboratory Results 08/18/18 12:28 08/17/18 08/18/18 08/19/18 05:59 05:59 05:59 Intake Total 1000 Balance 1000 - Physical Exam Constitutional: no apparent distress, appears nourished, not in pain Eyes: PERRL, anicteric sclera, other (left eye jareth out) Ears, Nose, Mouth, Throat: moist mucous membranes Cardiovascular: regular rate and rhythym, no murmur, rub, or gallop Respiratory: no respiratory distress, no rales or rhonchi, clear to auscultation Gastrointestinal: normoactive bowel sounds, soft, non-tender abdomen, no palpable masses Genitourinary: no bladder fullness, no bladder tenderness, no renal bruits Skin: no rashes or abrasions, no fluctuance, no induration Neurologic: AAOx3 Psychiatric: interacting appropriately ICD10 Worksheet Patient Problems: Problems Problem Status Onset Decubitus ulcer of foot, stage 3 Acute Diabetic ulcer of left foot associated with secondary diabetes mellitus Acute ESRD on dialysis Acute Elevated LFTs Acute
--- NOTE | 2018-08-18 14:36 | ASMTCMCOM ---
CM Note CM Note Notes: D/W , patient is scheduled for another I&D on Saturday - to be determined with treatment plan thereafter. Patient is current with [facility] where they assist with all wound care needs. Spoke with Nancy at [facility], they are able to accept patient back. Patient also receives HD in [place] on MWF. Nancy did verbalize some concern about patient's 'friend' or 'caregiver.' Patient did not verbalize anything re: his caregiver at home that was concerning to this CM. Patient currently has a wound vac - d/c wound vac needs unclear at this time. CM will follow. Plan: Likely return home with Family , RN/PT/OT Date Signed: 08/18/2018 02:36 PM Electronically Signed By:Inga Murillo RN
[2018-08-18] MEDS: GABAPENTIN 400 MG CAP PO SCH ×2 (15:34→22:25)
[2018-08-18] MEDS: HYDROmorphONE/DILAUDID 2 MG/ML INJ IVP PRN ×2 (15:34→19:53)
--- NOTE | 2018-08-18 16:11 | SOAPPROG ---
SOAP Progress Note Assessment/Plan: Assessment: 1. esrd: hd today on typical mwf schedule. Vol status looks good. Has been slow to get avf done. 2. htn: cont meds 3. LE infection: for revision tomorrow. Plan: 08/18/18 16:08 Subjective: Up in chair, feeling very well. Uneventful hd earlier today. Objective: Vital Signs Temp Pulse Resp BP Pulse Ox 36.6 C 74 17 140/79 H 92 08/18/18 07:46 08/18/18 08:24 08/18/18 07:46 08/18/18 08:24 08/18/18 07:46 Microbiology 08/13/18 17:52 Gram Stain - Final Foot - Eswab Laboratory Results 08/18/18 12:28 08/18/18 12:28 08/17/18 08/18/18 08/19/18 05:59 05:59 05:59 Intake Total 1000 Balance 1000 Physical Exam - Physical Exam General Appearance: no apparent distress Respiratory: lungs clear Cardiac/Chest: regular rate, rhythm Extremities: pedal edema (no RLE edema), other (+L bka) ICD10 Worksheet Patient Problems: Problems Problem Status Onset Decubitus ulcer of foot, stage 3 Acute Diabetic ulcer of left foot associated with secondary diabetes mellitus Acute ESRD on dialysis Acute Elevated LFTs Acute
--- NOTE | 2018-08-18 16:18 | PCMIDPN ---
Assessment/Plan: Assessment: 57-year-old man with left calcaneal diabetic foot infection status post amputation of the foot on 08/13. Continues to be without signs or symptoms of active infection so we will withhold antibiotics and determine need after surgical exploration tomorrow and degree of amputation if more proximal. 1. Left calcaneal diabetic foot infection status post amputation 08/13/17; Washout and wound VAC placement 08.16.17 2. Diabetes mellitus, type 2, poorly controlled with hemoglobin A1c of 7.8% in June 2018 3. History of polymicrobial left calcaneal diabetic foot infection 4. Leukocytosis, improved Plan: 1. Continue to monitor off antibiotics 2. No need to treat recovered E faecalis as this was a swab from the now amputated left foot 3. Will continue to follow Emmanuel Flores MD Infectious Diseases 08/18/18 16:17 Subjective: No fever or chills. Feeling generally well with well-controlled pain. Objective: Vital Signs Temp Pulse Resp BP Pulse Ox 36.6 C 74 17 140/79 H 92 08/18/18 07:46 08/18/18 08:24 08/18/18 07:46 08/18/18 08:24 08/18/18 07:46 Microbiology 08/13/18 17:52 Gram Stain - Final Foot - Eswab Laboratory Results 08/18/18 12:28 08/18/18 12:28 08/17/18 08/18/18 08/19/18 05:59 05:59 05:59 Intake Total 1000 Balance 1000 Laboratory Tests 08/17/18 08/18/18 04:17 12:28 WBC 19.26 H 14.68 H Hgb 8.1 L 8.9 L Plt Count 671 H 731 H - Physical Exam General Appearance: no apparent distress, non-toxic EENT: No scleral icterus Respiratory: No accessory muscle use Extremities: other (Wound VAC in place on left foot) Neuro/Psych: alert, normal mood/affect, oriented x 3, No depressed affect ICD10 Worksheet Patient Problems: Problems Problem Status Onset Decubitus ulcer of foot, stage 3 Acute Diabetic ulcer of left foot associated with secondary diabetes mellitus Acute ESRD on dialysis Acute Elevated LFTs Acute
[2018-08-18] MEDS: INSULIN GLARGINE 100 UNITS/ML UNIT SC SCH (22:24)
[2018-08-18] MEDS: ATORVASTATIN CALCIUM 40 MG TAB PO SCH (22:25)
[2018-08-18] MEDS: traZODone 50 MG TAB PO SCH (22:25)
[2018-08-18] MEDS: LORazepam 1 MG TAB PO PRN (22:35)
[2018-08-19] MEDS: HYDROmorphONE/DILAUDID 2 MG/ML INJ IVP PRN ×5 (00:27→18:13)
[2018-08-19] MEDS: oxyCODONE IR 5 MG TAB PO SCH ×6 (02:23→21:56)
[2018-08-19] MEDS: CARVEDILOL 6.25 MG TAB PO SCH ×2 (07:29→18:11)
[2018-08-19] MEDS: ASPIRIN 81 MG CHEWABLE TAB PO SCH (07:29)
[2018-08-19] MEDS: CALCIUM ACETATE 667 MG CAP PO SCH ×3 (07:29→18:13)
[2018-08-19] MEDS: GABAPENTIN 400 MG CAP PO SCH ×3 (07:29→21:53)
[2018-08-19] MEDS: SERTRALINE HCL 100 MG TAB PO SCH (07:30)
[2018-08-19] MEDS: SENNOSIDES/DOCUSATE SODIUM TAB PO SCH ×2 (07:30→21:53)
[2018-08-19] MEDS: INSULIN LISPRO 100 UNIT/ML SC SCH ×3 (07:40→18:18)
[2018-08-19] MEDS: busPIRone 15 MG TAB PO PRN ×2 (07:42→22:28)
[2018-08-19] MEDS ORDERED: BACITRACIN 50,000 UNITS/10 ML SYR IRR ONE (13:32)
[2018-08-19] MEDS ORDERED: POLYMYXIN B SULFATE 500,000 UNIT/10 ML SYR IRR ONE (13:32)
[2018-08-19] MEDS ORDERED: BUPIVACAINE 0.5% 30 ML SDV ONE (13:32)
--- NOTE | 2018-08-19 13:43 | SOAPPROG ---
SOAP Progress Note Assessment/Plan: Assessment/Plan: 57 y/o M with PMH ESRD on HD who presented for wound debridement of foot from surgery on 08/03. ESRD: on HD MWF. - HD on 08/18, plan for HD tomorrow - may return to [facility] once discharged - renally dose pain meds HTN/vol: Will UF on HD. Continue home meds. AMADOR: Phos at goal, continue binder, renal diet. Anemia: On EPO. Monitor labs. Will continue to follow, please contact if ?'s. #[phone]. 08/19/18 15:07 Subjective: No issues on HD. Going back to OR today. Objective: Vital Signs Temp Pulse Resp BP Pulse Ox 37.1 C 70 18 141/80 H 92 08/19/18 11:26 08/19/18 11:26 08/19/18 11:26 08/19/18 11:26 08/19/18 11: Microbiology 08/13/18 17:52 Gram Stain - Final Foot - Eswab Laboratory Results 08/19/18 04:28 08/19/18 04:28 08/18/18 08/19/18 08/20/18 05:59 05:59 05:59 Intake Total 1400 350 Balance 1400 350 Physical Exam - Physical Exam General Appearance: alert, no apparent distress EENT: PERRL/EOMI Neck: non-tender, full range of motion, supple Respiratory: chest non-tender, lungs clear Cardiac/Chest: regular rate, rhythm, edema Abdomen: normal bowel sounds, non-tender, soft Skin: other (LLE osteo) Neuro/Psych: no motor/sensory deficits, alert ICD10 Worksheet Patient Problems: Problems Problem Status Onset Decubitus ulcer of foot, stage 3 Acute Diabetic ulcer of left foot associated with secondary diabetes mellitus Acute ESRD on dialysis Acute Elevated LFTs Acute
--- NOTE | 2018-08-19 14:12 | HOSPPROG ---
Hospitalist Progress Note Assessment/Plan: 57 yo M w cad, esrd, dm, LLE non-healing wound here for amputation after failed conservative treatment. #LLE non-healing wound - s/p partial amputation 08/13 Dr Patel - s/p additional debridement and wound vac 08/16 - Dr Patel planning additional I&D today (08/19) - no indication for abx per ID #Acute on chronic pain: better today. component of phantom limb pain - cont increased gabapentin dose at 400mg TID - continue dilaudid 1.2 q4h prn and scheduled oxy 10 q4h - receiving roughly 120 morphine equivalents/day, up from around 50/day on outpatient regimen. i discussed this with him and the challenge of weaning. he is agreeable to wean back once surgical procedures are completed #Diabetes: BG controlled - will continue current regimen of lantus 8u qhs, high dose SSI #ESRD - HD 08/15, 08/18, plan for another session tomorrow #CAD: asa/statin/bb #Anemia: due to kidney dz. stable - EPO per renal VTE ppx: SQH Code: full Dispo: Remain inpatient. Therapy services recommending home health, will re- assess after additional surgeries. Subjective: Pain controlled after increase in dilaudid yesterday. Had BM. Hungry. Objective: Vital Signs Temp Pulse Resp BP Pulse Ox 37.1 C 70 18 141/80 H 92 08/19/18 11:26 08/19/18 11:26 08/19/18 11:26 08/19/18 11:26 08/19/18 11:26 Microbiology 08/13/18 17:52 Gram Stain - Final Foot - Eswab Laboratory Results 08/19/18 04:28 08/19/18 04:28 08/18/18 08/19/18 08/20/18 05:59 05:59 05:59 Intake Total 1400 350 Balance 1400 350 - Physical Exam Constitutional: no apparent distress, appears nourished, not in pain Eyes: PERRL, anicteric sclera Ears, Nose, Mouth, Throat: other (left eye opaque) Cardiovascular: regular rate and rhythym, no murmur, rub, or gallop, No edema Respiratory: no respiratory distress, no rales or rhonchi, clear to auscultation Gastrointestinal: normoactive bowel sounds, soft, non-tender abdomen, no palpable masses Genitourinary: no bladder fullness, no bladder tenderness, no renal bruits Skin: other (left lower leg amputated with wound vac in place) Musculoskeletal: full muscle strength Neurologic: AAOx3 Psychiatric: interacting appropriately ICD10 Worksheet Patient Problems: Problems Problem Status Onset Decubitus ulcer of foot, stage 3 Acute Diabetic ulcer of left foot associated with secondary diabetes mellitus Acute ESRD on dialysis Acute Elevated LFTs Acute
[2018-08-19] MEDS ORDERED: NS 1,000 ML IV ONE (15:01)
[2018-08-19] MEDS ORDERED: MIDAZOLAM 2 MG/2 ML VIAL ONE (16:12)
[2018-08-19] MEDS ORDERED: MIDAZOLAM 2 MG/2 ML VIAL IVP ONE (16:14)
--- NOTE | 2018-08-19 16:14 | PDANEPAE ---
ANE History of Present Illness L leg I&D ANE Past Medical History - Cardiovascular History Hx Hypertension: Yes Hx Arrhythmias: No Hx Chest Pain: No Hx Coronary Artery / Peripheral Vascular Disease: Yes Hx CHF / Valvular Disease: Yes Hx Palpitations: No Cardiovascular History Comment: htn. hyperlipidemia. CAD s/p cabg. PVD - Pulmonary History Hx COPD: Yes Hx Asthma/Reactive Airway Disease: No Hx Recent Upper Respiratory Infection: No Hx Oxygen in Use at Home: Yes O2 in Use at Home (L/minute): 3 Hx Sleep Apnea: No Sleep Apnea Screening Result - Last Documented: Positive Pulmonary History Comment: sherley triggers - Neurologic History Hx Cerebrovascular Accident: Yes Hx Seizures: No Hx Dementia: No Neurologic History Comment: hx of cva. diabetic neuropathy - Endocrine History Hx Diabetes: Yes Endocrine History Comment: type 2 - Renal History Hx Renal Disorders: Yes Renal History Comment: ESRD with dialysis - Liver History Hx Hepatic Disorders: Yes Hepatic History Comment: elevated LFTs - Neurological & Psychiatric Hx Hx Neurological and Psychiatric Disorders: No - Cancer History Hx Cancer: No - Congenital Disorder History Hx Congenital Disorders: No - GI History Hx Gastrointestinal Disorders: No - Other Health History Other Health History: glaucoma. 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 hard of hearing no aides - Chronic Pain History Chronic Pain: No - Surgical History Prior Surgeries: 05.15.18 i&d left heel with Misaler HOANG Review of Systems Review of Systems: - Exercise capacity Exercise capacity: limited by disability METS (RN): 2 METS ANE Patient History - Allergies Allergies/Adverse Reactions: No Known Allergies Allergy (Verified 08/13/18 14:23) - Home Medications Home medications: home medication list seen and reviewed Home Medications: Albuterol [Proventil Inhaler HFA (*)] 2 puffs IH Q6HRS PRN 05/09/18 [Last Taken 08/12/18] Atorvastatin Calcium [Lipitor 40 mg (*)] 40 mg PO HS 05/09/18 [Last Taken ] Carvedilol [Coreg (*)] 6.25 mg PO BIDMEAL 05/09/18 [Last Taken 08/12/18] Gabapentin [Neurontin 300 MG (*)] 300 mg PO BID PRN 05/09/18 [Last Taken ] Nitroglycerin [Nitrostat 0.4 mg (*)] 0.4 mg SL Q5M PRN 05/09/18 [Last Taken ] glipiZIDE [Glucotrol] 10 mg PO BIDMEAL 05/09/18 [Last Taken 08/12/18] traZODone [traZODONE 50MG (*)] 50 mg PO HS 05/09/18 [Last Taken 08/11/18] Aspirin [Aspirin 81mg (*)] 81 mg PO DAILY 05/14/18 [Last Taken 08/12/18] Calcium Acetate [Phoslo (*)] 667 mg PO TIDMEAL 07/22/18 [Last Taken 08/12/18] LORazepam [Ativan (*)] 1 mg PO HS PRN 07/22/18 [Last Taken 08/09/18] busPIRone [Buspar (*)] 15 mg PO BID PRN 07/22/18 [Last Taken 08/12/18] guaiFENesin [Mucinex 600 MG (*)] 600 mg PO BID PRN 07/22/18 [Last Taken 08/09/18 ] Ciprofloxacin [Cipro] 500 mg PO DAILY 08/13/18 [Last Taken Unknown] Hydrocodone/APAP 5/325 [Anderson 5/325 (*)] 1 - 2 tab PO Q4H PRN 08/13/18 [Last Taken 08/13/18] Sertraline HCl [Zoloft 100mg (*)] 100 mg PO DAILY 08/13/18 [Last Taken Unknown] - NPO status NPO Status: no food or drink >8 hours NPO Since - Liquids (Date): 08/19/18 NPO Since - Liquids (Time): 08:00 NPO Since - Solids (Date): 08/19/18 NPO Since - Solids (Time): 00:00 - Anes Hx Anes Hx: no prior problems - Smoking Hx Smoking Status: Current every day smoker - Family Anes Hx Family Anes Hx: none ANE Labs/Vital Signs - Labs Result Diagrams: 08/19/18 04:28 08/19/18 04:28 - Vital Signs Vital Signs: reviewed preoperatively; see RN documention for details Blood Pressure: 136/83 Heart Rate: 93 Respiratory Rate: 19 O2 Sat (%): 93 Height: 172.72 cm Weight: 79.379 kg ANE Physical Exam - Airway Neck exam: FROM Mallampati Score: Class 2 Mouth exam: dentures - Pulmonary Pulmonary: no respiratory distress - Cardiovascular Cardiovascular: regular rate and rhythym - ASA Status ASA Status: IV ANE Anesthesia Plan Anesthesia Plan: GA w LMA
[2018-08-19] MEDS ORDERED: ONDANSETRON 4 MG/2 ML VIAL ONE (16:17)
[2018-08-19] MEDS ORDERED: LIDOCAINE 2% 100 MG/5 ML SYR ONE (16:17)
[2018-08-19] MEDS ORDERED: DEXAMETHASONE 4 MG/ML VIAL ONE (16:17)
[2018-08-19] MEDS ORDERED: fentaNYL 100 MCG/2 ML INJ ONE (16:18)
[2018-08-19] MEDS ORDERED: PROPOFOL 200 MG/20 ML VIAL ONE (16:18)
[2018-08-19] MEDS ORDERED: HEPARIN 50,000 UNIT/10 ML VIAL ONE (16:46)
[2018-08-19] MEDS ORDERED: PROMETHAZINE HCL 25 MG/ML INJ IVP PRN (16:55)
[2018-08-19] MEDS ORDERED: ONDANSETRON 4 MG/2 ML VIAL IVP PRN (16:55)
[2018-08-19] MEDS ORDERED: HYDROmorphONE/DILAUDID 2 MG/ML INJ IVP PRN (16:55)
[2018-08-19] MEDS ORDERED: fentaNYL 100 MCG/2 ML INJ IVP PRN (16:55)
[2018-08-19] MEDS ORDERED: DEXAMETHASONE 4 MG/ML VIAL IVP PRN (16:55)
[2018-08-19] MEDS ORDERED: MEPERIDINE 25 MG/0.5 ML AMP IVP PRN (16:55)
[2018-08-19] MEDS ORDERED: oxyCODONE IR 5 MG TAB PO PRN (16:55)
[2018-08-19] MEDS ORDERED: NALOXONE HCL 0.4 MG/ML INJ IVP PRN (16:55)
--- NOTE | 2018-08-19 16:56 | POSTANESTH ---
Post Anesthetic Evaluation Cardiovascular Status: Similar to Pre-Op Cond Respiratory Status: Similar to Pre-op Cond. Level of Consciousness/Mental Status: Can Participate in Eval, Moderately Sleepy Pain Control: Adequate, Prn Tx Ordered Nausea/Vomiting Control: Adequate, Prn Tx Ordered Complications Possibly Related to Anesthesia: None Noted
--- NOTE | 2018-08-19 17:09 | POSTOPPROG ---
Post Op Note Date of Operation: 08/19/18 Surgeon: Jose Carlos Patel Anesthesia: LMA Pre-op Diagnosis: L ankle infection Post-op Diagnosis: same Procedure: I&D L ankle/wound vac Inf/Abcess present in the surg proc area at time of surgery?: Yes Depth: Deep Incisional (Fascial) EBL: Minimal
[2018-08-19] MEDS: traZODone 50 MG TAB PO SCH (21:53)
[2018-08-19] MEDS: INSULIN GLARGINE 100 UNITS/ML UNIT SC SCH (22:12)
[2018-08-19] MEDS: ATORVASTATIN CALCIUM 40 MG TAB PO SCH (22:28)
[2018-08-20] MEDS: HYDROmorphONE/DILAUDID 2 MG/ML INJ IVP PRN (00:28)
[2018-08-20] MEDS: oxyCODONE IR 5 MG TAB PO SCH ×6 (02:19→21:01)
[2018-08-20] MEDS: GABAPENTIN 400 MG CAP PO SCH ×3 (08:29→18:39)
[2018-08-20] MEDS: SERTRALINE HCL 100 MG TAB PO SCH (08:30)
[2018-08-20] MEDS: CALCIUM ACETATE 667 MG CAP PO SCH ×3 (08:30→18:39)
[2018-08-20] MEDS: CARVEDILOL 6.25 MG TAB PO SCH ×2 (08:30→18:36)
[2018-08-20] MEDS: ASPIRIN 81 MG CHEWABLE TAB PO SCH (08:30)
[2018-08-20] MEDS: SENNOSIDES/DOCUSATE SODIUM TAB PO SCH ×2 (08:30→21:02)
[2018-08-20] MEDS: INSULIN LISPRO 100 UNIT/ML SC SCH ×3 (08:31→18:47)
--- NOTE | 2018-08-20 10:06 | SOAPPROG ---
SOAP Progress Note Assessment/Plan: Assessment: S/P ankle disarticulation Moderate pain Leandro po Dressing intact. No gross D/C Lowe leg edema improved Plan: Hope to salvage Symes level amputation d/t vision impairment Probable return to OR Saturday for I&D Abx per ID 08/14/18 06:00 08/15/18 06:52 Con't pain Dressing intact, No D/C Plan: I&D, possible conversion to BKA tomorrow 08/17/18 11:55 Pain markedly improved Leandro po Dressing /Vac intact Swelling/erythema improved Repeat I&D Saturday. Want to try to salvage Symes level if possible 08/18/18 07:57 Pain improved Feeling much better Vac intact, moderate D/C Plan : I&D tomorrow 08/20/18 10:02 S/P I&D ankle Pain markedly improved. Ambulating Non WB Vac intact, min D/C OK for D/C with home vac mgmt Will bring bach in 1-2 wks for attempted closure Objective: Vital Signs Temp Pulse Resp BP Pulse Ox 37.0 C 69 15 157/71 H 93 08/20/18 07:23 08/20/18 07:23 08/20/18 07:23 08/20/18 07:23 08/20/18 07:23 Microbiology 08/13/18 17:52 Gram Stain - Final Foot - Eswab Laboratory Results 08/19/18 04:28 08/20/18 04:35 08/19/18 08/20/18 08/21/18 05:59 05:59 05:59 Intake Total 1400 3050 Output Total 50 Balance 1400 3000 ICD10 Worksheet Patient Problems: Problems Problem Status Onset Decubitus ulcer of foot, stage 3 Acute Diabetic ulcer of left foot associated with secondary diabetes mellitus Acute ESRD on dialysis Acute Elevated LFTs Acute
[2018-08-20] MEDS: busPIRone 15 MG TAB PO PRN ×2 (10:28→21:01)
--- NOTE | 2018-08-20 11:01 | SOAPPROG ---
SOAP Progress Note Assessment/Plan: Assessment: ESRD, HD today PVOD, LBKA with wound vac hyperkalemia, HD today HD cath looks OK Plan: HD today wound Vac in place hopefully home tomorrow no ABX needed at this point 08/20/18 10:54 Subjective: spirits good no cp sob nausea or vomiting up to the chair appetite good energy improving Objective: Vital Signs Temp Pulse Resp BP Pulse Ox 37.0 C 69 15 157/71 H 93 08/20/18 07:23 08/20/18 07:23 08/20/18 07:23 08/20/18 07:23 08/20/18 07:23 Microbiology 08/13/18 17:52 Gram Stain - Final Foot - Eswab Laboratory Results 08/19/18 04:28 08/20/18 04:35 08/19/18 08/20/18 08/21/18 05:59 05:59 05:59 Intake Total 1400 3050 Output Total 50 Balance 1400 3000 Physical Exam - Physical Exam General Appearance: alert Neck: normal inspection Respiratory: No rhonchi, No wheezing, No pleural rub Cardiac/Chest: regular rate, rhythm, systolic murmur, No edema, No friction rub Abdomen: normal bowel sounds, non-tender, soft Extremities: other (left BKA) Neuro/Psych: alert, normal mood/affect, oriented x 3 ICD10 Worksheet Patient Problems: Problems Problem Status Onset Decubitus ulcer of foot, stage 3 Acute Diabetic ulcer of left foot associated with secondary diabetes mellitus Acute ESRD on dialysis Acute Elevated LFTs Acute
[2018-08-20] MEDS ORDERED: HEPARIN 50,000 UNIT/10 ML VIAL ONE (19:23)
[2018-08-20] MEDS ORDERED: HEPARIN 10,000 UNIT/10 ML MDV (1,000 UNIT/ML) ONE (19:23)
[2018-08-20] MEDS ORDERED: GABAPENTIN 400 MG CAP PO SCH (19:30)
--- NOTE | 2018-08-20 19:32 | HOSPPROG ---
Hospitalist Progress Note Assessment/Plan: 57 yo M w cad, esrd, dm, LLE non-healing wound here for amputation after failed conservative treatment. #LLE non-healing wound - s/p partial amputation 08/13 Dr Patel - s/p additional debridement and wound vac 08/16 - Dr Patel planning additional I&D today (08/19) - no indication for abx per ID #Acute on chronic pain: component of phantom limb pain - Increased Gabapentin to 600mg TID - continue scheduled oxy 10 q4h -stopped IV pain meds. He likely will be discharge tomorrow and needs to be off IV pain meds - receiving roughly 120 morphine equivalents/day, up from around 50/day on outpatient regimen. i discussed this with him and the challenge of weaning. he is agreeable to wean back once surgical procedures are completed #Diabetes: BG controlled - will continue current regimen of lantus 8u qhs, high dose SSI #ESRD - HD 08/15, 08/18, plan for another session tomorrow #CAD: asa/statin/bb #Anemia: due to kidney dz. stable - EPO per renal #Hyperkalemia, getting HD today VTE ppx: SQH Code: full Dispo: Remain inpatient. Therapy services recommending home health. Plan for d/ c tomorrow. Will need to remain off IV Dilaudid. Will need to discuss wean from current level of opiates Subjective: no cp or sob. getting HD Objective: Vital Signs Temp Pulse Resp BP Pulse Ox 37.0 C 77 15 156/84 H 93 08/20/18 07:23 08/20/18 18:36 08/20/18 07:23 08/20/18 18:36 08/20/18 07:23 Microbiology 08/13/18 17:52 Gram Stain - Final Foot - Eswab Anaerobic Culture - Final Enterococcus Faecalis Laboratory Results 08/19/18 04:28 08/20/18 04:35 08/19/18 08/20/18 08/21/18 05:59 05:59 05:59 Intake Total 1400 3050 200 Output Total 50 Balance 1400 3000 200 - Physical Exam Constitutional: no apparent distress, appears nourished, not in pain Eyes: PERRL, EOMI Ears, Nose, Mouth, Throat: moist mucous membranes, hearing normal Cardiovascular: regular rate and rhythym, No edema Respiratory: no respiratory distress, no rales or rhonchi, clear to auscultation Skin: warm Neurologic: AAOx3 Psychiatric: interacting appropriately, not anxious, not encephalopathic Lymph, Heme, Immunologic: No petechiae ICD10 Worksheet Patient Problems: Problems Problem Status Onset Decubitus ulcer of foot, stage 3 Acute Diabetic ulcer of left foot associated with secondary diabetes mellitus Acute ESRD on dialysis Acute Elevated LFTs Acute
[2018-08-20] MEDS: traZODone 50 MG TAB PO SCH (21:02)
[2018-08-20] MEDS: ATORVASTATIN CALCIUM 40 MG TAB PO SCH (21:02)
[2018-08-20] MEDS: GABAPENTIN 300 MG CAP PO SCH (21:02)
[2018-08-20] MEDS: INSULIN GLARGINE 100 UNITS/ML UNIT SC SCH (21:03)
[2018-08-21] MEDS: oxyCODONE IR 5 MG TAB PO SCH ×4 (02:44→18:14)
[2018-08-21] MEDS: INSULIN LISPRO 100 UNIT/ML SC SCH ×3 (08:29→19:00)
--- NOTE | 2018-08-21 09:59 | SOAPPROG ---
JUANIS Progress Note Assessment/Plan: Assessment: 1. ESRD Next HD Saturday as an outpatient 2. s/p additional LLE surgery Wound Vac in place. I will review outpatient plans with primary service 3. Pain Control I will discuss with primary service 4. DC today Plan: 08/17/18 10:40 08/21/18 09:57 Subjective: In good spirits Objective: Vital Signs Temp Pulse Resp BP Pulse Ox 37.0 C 74 20 161/86 H 96 08/21/18 08:00 08/21/18 08:00 08/21/18 08:00 08/21/18 08:00 08/21/18 08:00 Microbiology 08/13/18 17:52 Gram Stain - Final Foot - Eswab Anaerobic Culture - Final Enterococcus Faecalis Laboratory Results 08/19/18 04:28 08/21/18 04:15 08/20/18 08/21/18 08/22/18 05:59 05:59 05:59 Intake Total 3050 500 Output Total 50 Balance 3000 500 Physical Exam - Physical Exam General Appearance: no apparent distress Respiratory: lungs clear Cardiac/Chest: regular rate, rhythm Extremities: other (R wound vac noted, Trace LLE edema) Neuro/Psych: oriented x 3 ICD10 Worksheet Patient Problems: Problems Problem Status Onset Decubitus ulcer of foot, stage 3 Acute Diabetic ulcer of left foot associated with secondary diabetes mellitus Acute ESRD on dialysis Acute Elevated LFTs Acute
[2018-08-21] MEDS: CALCIUM ACETATE 667 MG CAP PO SCH ×3 (10:01→18:12)
[2018-08-21] MEDS: ASPIRIN 81 MG CHEWABLE TAB PO SCH (10:01)
[2018-08-21] MEDS: GABAPENTIN 300 MG CAP PO SCH ×3 (10:01→22:23)
[2018-08-21] MEDS: SERTRALINE HCL 100 MG TAB PO SCH (10:02)
[2018-08-21] MEDS: SENNOSIDES/DOCUSATE SODIUM TAB PO SCH ×2 (10:03→22:22)
[2018-08-21] MEDS: CARVEDILOL 6.25 MG TAB PO SCH ×2 (10:05→18:12)
--- NOTE | 2018-08-21 10:26 | PDDCSUM ---
Discharge Summary Discharge Summary: HPI/HOSPITAL COURSE: 57 yo M w cad, esrd, dm, LLE non-healing wound here for amputation after failed conservative treatment. Dr Patel performed partial amputation on 08/13, additional debridement on 08/16, and I&D on 08/19. Per ID, there is not indication for abx. He has a wound vac in place and he will f/u with Dr. Patel next week. The pt has a hx of chronic pain syndrome and pain mgmt was challenging during this hospitalization. He was on IV Dilaudid and has been weaned. He has required scheduled po opiates. Today, he is requesting transition back to his home regimen of Vicodin 5/325, 1-2 tabs every 4 hrs as needed. We discussed that he was scheduling pain meds in the hospital, but he reports that he wants to wean to PRN at home and comfortable being discharged with his home regimen. I have provided 50 tablets and transmitted the script. Further pain mgmt per his surgical team and PCP. Gabapentin was increased to 300mg TID. He did receive higher dosing here at the hospital but we are limited by dialysis and ESRD and so his dose is being decreased to 300mg TID which is higher than his previous home dose. BP was elevated and Lisinopril has been restarted F/u: With Dr. Patel next week, with Nephrology per HD schedule, with PCP next week DDX: #LLE non-healing wound - s/p partial amputation 08/13 Dr Patel - s/p additional debridement and wound vac 08/16 - Dr Patel planning additional I&D today (08/19) - no indication for abx per ID -f/u with Dr. Patel next week #Acute on chronic pain: component of phantom limb pain - Increased Gabapentin to 300mg TID - pain meds per above #Diabetes: BG controlled - will continue current regimen of lantus 8u qhs. glyburide discontinued # HTN: restarted Lisinopril #ESRD - HD per schedule #CAD: asa/statin/bb #Anemia: due to kidney dz. stable - EPO per renal #Hyperkalemia, resolved Exam: NAD AAOX3 RRR CTA B S/NT/ND MEDS: SEE MED REC TOTAL TIME SPENT ON D/C IS 40 MINS. D/W NEPHROLOGY, D/W CM.
--- NOTE | 2018-08-21 10:27 | PDIAF ---
- Diagnosis Diagnosis: s/p amputation Code Status: Full Code - Medication Management Discharge Medications: electronically signed and located in the Home Medication List. - Orders Services needed: Home Care, Certified Exercise Physiologist, Physical Therapy, Occupational Therapy Home Care Face to Face: I certify that this patient was under my care and that I had the required [id number] encounter meeting the encounter requirements on the discharge day. My findings support the fact that the patient is homebound as defined in Home Care Face to Face Continued: CMS Chapter 7 Medicare Benefits Manual 30.1.1 , The condition of the patient is such that there exists a normal inability to leave home and consequently, leaving home would require a considerable and taxing effort. Diet Recommendation: no restrictions on diet Diet Texture: Regular Texture Diet Additional Instructions: Activity: as tolerated F/U: with Surgery next week as scheduled. Please continue your typical dialysis schedule. with PCP next week - Follow Up Care Current Providers and Referrals: TIFFANIE GORMAN [Other] - As per Instructions
--- NOTE | 2018-08-21 11:44 | ASMTCMCOM ---
CM Note CM Note Notes: Spoke w/pt, he will dc home with Family home health, friend is coming to pick him up. Pt is suppose to dc with home wound vac but none has been ordered. CM called surgeon to fill out paperwork for [facility], his PA Davian Mosqueda will sign. Pt is very upset that this was not done already. CM called Jennifer at [facility] and she will help facilitate wound vac as quickly as possible. Date Signed: 08/21/2018 11:43 AM Electronically Signed By:Elvira Lazcano RN
--- NOTE | 2018-08-21 14:54 | ASMTDCNOTE ---
Case Management Discharge Discharge Order Complete? Answers: Yes Patient to Obtain Answers: Independently Medications Transportation Arranged Answers: Family/Friends Faxed Final Orders Answers: Yes Agency/Facility Transfer Answers: Yes Report Printed & Faxed to Receiving Agency Family Notified Answers: No Discharge Comments Notes: D/w MD, final orders faxed. Pat at [facility] notified, Jennifer at [facility] assisting with wound vac, CM faxed all paperwork filled out by Dr Patel's PA Davian. She allowed CM to give pt wound vac and they will get his signature later. Wound vac # [id number] Date Signed: 08/21/2018 02:53 PM Electronically Signed By:Elvira Lazcano RN
--- NOTE | 2018-08-21 16:37 | ASMTCMCOM ---
CM Note CM Note Notes: Spoke w/Tomer from [facility], pt's wound vac still not approved. Discussed with pt, he agrees to stay another night. notified and left message for Dr Toby Marcelo. DC Plan: Family HH + [facility] wound vac Date Signed: 08/21/2018 04:36 PM Electronically Signed By:Elvira Lazcano RN
[2018-08-21] MEDS: LISINOPRIL 20 MG TAB PO SCH (18:12)
[2018-08-21] MEDS: traZODone 50 MG TAB PO SCH (22:23)
[2018-08-21] MEDS: ATORVASTATIN CALCIUM 40 MG TAB PO SCH (22:23)
[2018-08-21] MEDS: oxyCODONE IR 5 MG TAB PO PRN (22:24)
[2018-08-21] MEDS: busPIRone 15 MG TAB PO PRN (22:24)
[2018-08-21] MEDS: INSULIN GLARGINE 100 UNITS/ML UNIT SC SCH (22:25)
--- NOTE | 2018-08-22 05:58 | SOAPPROG ---
SOAP Progress Note Assessment/Plan: Assessment: S/P ankle disarticulation Moderate pain Elandro po Dressing intact. No gross D/C Lowe leg edema improved Plan: Hope to salvage Symes level amputation d/t vision impairment Probable return to OR Saturday for I&D Abx per ID 08/14/18 06:00 08/15/18 06:52 Con't pain Dressing intact, No D/C Plan: I&D, possible conversion to BKA tomorrow 08/17/18 11:55 Pain markedly improved Leandro po Dressing /Vac intact Swelling/erythema improved Repeat I&D Saturday. Want to try to salvage Symes level if possible 08/18/18 07:57 Pain improved Feeling much better Vac intact, moderate D/C Plan : I&D tomorrow 08/20/18 10:02 S/P I&D ankle Pain markedly improved. Ambulating Non WB Vac intact, min D/C OK for D/C with home vac mgmt Will bring bach in 1-2 wks for attempted closure 08/22/18 05:57 Hypoglycemia yesterday Better this am Vac intact Min D/C Plan: D/C home with home care Return in ~ 10 days for attempted amputation closure Objective: Vital Signs Temp Pulse Resp BP Pulse Ox 36.6 C 73 20 174/83 H 95 08/22/18 00:00 08/22/18 00:00 08/22/18 00:00 08/22/18 00:00 08/22/18 00:00 Laboratory Results 08/19/18 04:28 08/21/18 04:15 08/20/18 08/21/18 08/22/18 05:59 05:59 05:59 Intake Total 3050 500 400 Output Total 50 Balance 3000 500 400 ICD10 Worksheet Patient Problems: Problems Problem Status Onset Decubitus ulcer of foot, stage 3 Acute Diabetic ulcer of left foot associated with secondary diabetes mellitus Acute ESRD on dialysis Acute Elevated LFTs Acute
[2018-08-22] MEDS: oxyCODONE IR 5 MG TAB PO PRN (06:57)
[2018-08-22] MEDS: INSULIN LISPRO 100 UNIT/ML SC SCH (08:01)
[2018-08-22] MEDS: CALCIUM ACETATE 667 MG CAP PO SCH (08:22)
[2018-08-22] MEDS: SENNOSIDES/DOCUSATE SODIUM TAB PO SCH (08:22)
[2018-08-22] MEDS: SERTRALINE HCL 100 MG TAB PO SCH (08:22)
[2018-08-22] MEDS: LISINOPRIL 20 MG TAB PO SCH (08:22)
[2018-08-22] MEDS: GABAPENTIN 300 MG CAP PO SCH (08:22)
[2018-08-22] MEDS: ASPIRIN 81 MG CHEWABLE TAB PO SCH (08:22)
[2018-08-22] MEDS: CARVEDILOL 6.25 MG TAB PO SCH (08:22)
[2018-08-22 08:24] VITALS: BP 168/78
[2018-08-22] MEDS ORDERED: HYDROCODONE/APAP 5/325 TAB PO PRN (09:47)
--- NOTE | 2018-08-22 10:10 | SOAPPROG ---
SOAP Progress Note Assessment/Plan: Assessment: #ESRD- [facility] MWF -I recommended he do HD today but he is unwilling, tells me too exhausted. Agrees to do it as inpt tomorrow if still here vs outpt at [facility] (I called outpt unit and have slot for him at 7am and SW arranging transportation) . I discussed with pt too dangerous to go to Saturday without HD and he agrees #PVD s/p BKA -awaiting wound vac arrangements for dispo -per ID no need for further antibiotics -pain management has been a struggle- prefer lower dose gabapentin if we can given ESRD #anemia CKD -Epo 10,000 units weekly- dose today -chronic wound, surgical losses all contributing #DM #Malnutrition -improving, has gained a few pounds back (infection/pain has caused significant weight loss), on IDPN as outpt #MBD of CKD phos at goal #anxiety -he had a lot of complaints about his overall stay that I discussed with him at length this am. Mr Iraheta is understandably anxious about his overall health and from my experience as his outpt toy painter, it is helpful to sit and take time to fully listen to him and ensure he is being heard which I tried to do. He tells me he is happy with his surgery and dialysis teams and agrees he willl feel better when he can get home. I assured him team working on his wound vac arrangements SHARI. I also spoke with associate of science in nursing for the floor and our outpt SW Jackie who will meet with him as well. We will continue to provide support for him after discharge. I discussed with associate of science in nursing, Outpt BAN I am custom decorating consultant for weekend Pat Smith MD [facility] pager [phone] 08/22/18 10:14 Objective: Vital Signs Temp Pulse Resp BP Pulse Ox 36.8 C 70 14 168/78 H 94 08/22/18 08:00 08/22/18 08:22 08/22/18 08:00 08/22/18 08:22 08/22/18 08:00 Laboratory Results 08/19/18 04:28 08/21/18 04:15 08/21/18 08/22/18 08/23/18 05:59 05:59 05:59 Intake Total 500 800 Balance 500 800 Physical Exam - Physical Exam General Appearance: alert, no apparent distress, other (sitting upright in wheelchair) EENT: other (mmm) Neck: supple, other (RIJ TDC c/d/i) Respiratory: lungs clear Cardiac/Chest: regular rate, rhythm Abdomen: normal bowel sounds, non-tender, soft Skin: warm/dry Extremities: other (no edema, L BKA wound dressed) Neuro/Psych: alert, oriented x 3 ICD10 Worksheet Patient Problems: Problems Problem Status Onset Decubitus ulcer of foot, stage 3 Acute Diabetic ulcer of left foot associated with secondary diabetes mellitus Acute ESRD on dialysis Acute Elevated LFTs Acute
[2018-08-22] MEDS ORDERED: EPOETIN ALFA 10,000 UNIT/ML VIAL SC SCH (10:15)
--- NOTE | 2018-08-22 10:34 | PDDCSUM ---
Discharge Summary Discharge Summary: HPI/HOSPITAL COURSE: The patient was to discharge yesterday 08/21 but there were issues with wound vac and d/c arrangements. He did have hypoglycemic event on 08/21 evening and Lantus was held. He is better this morning. Lantus has been discontinued. We discussed restarting Glyburide which was a home med on admission. He is concerned about ongoing hypoglycemia and wants to d/w his pcp prior to restarting any meds. 57 yo M w cad, esrd, dm, LLE non-healing wound here for amputation after failed conservative treatment. Dr Patel performed partial amputation on 08/13, additional debridement on 08/16, and I&D on 08/19. Per ID, there is not indication for abx. He has a wound vac in place and he will f/u with Dr. Patel next week. The pt has a hx of chronic pain syndrome and pain mgmt was challenging during this hospitalization. He was on IV Dilaudid and has been weaned. He has required scheduled po opiates. Today, he is requesting transition back to his home regimen of Vicodin 5/325, 1-2 tabs every 4 hrs as needed. We discussed that he was scheduling pain meds in the hospital, but he reports that he wants to wean to PRN at home and comfortable being discharged with his home regimen. I have provided 50 tablets and transmitted the script. Further pain mgmt per his surgical team and PCP. Gabapentin was increased to 300mg TID. He did receive higher dosing here at the hospital but we are limited by dialysis and ESRD and so his dose is being decreased to 300mg TID which is higher than his previous home dose. BP was elevated and Lisinopril has been restarted F/u: With Dr. Patel next week, with Nephrology per HD schedule, and with his PCP next week DDX: #LLE non-healing wound - s/p partial amputation 08/13 Dr Patel - s/p additional debridement and wound vac 08/16 - Dr Patel planning additional I&D today (08/19) - no indication for abx per ID -f/u with Dr. Patel next week #Acute on chronic pain: component of phantom limb pain - Increased Gabapentin to 300mg TID - pain meds per above #Diabetes: BG controlled - please see above # HTN: restarted Lisinopril #ESRD - HD per schedule #CAD: asa/statin/bb #Anemia: due to kidney dz. stable - EPO per renal #Hyperkalemia, resolved Exam: NAD AAOX3 RRR CTA B S/NT/ND Skin: warm Mood: appropriate MEDS: SEE MED REC TOTAL TIME SPENT ON D/C IS 35 MINS. D/W NEPHROLOGY yesterday, D/W CM today
--- NOTE | 2018-08-22 11:12 | ASMTCMCOM ---
CM Note CM Note Notes: Met with pt, could not leave yesterday d/t pending approval. Approval for wound vac given today, needed to exchange d/t malfunction. Patient signed delivery of vac and paperwork faxed back to [facility]. Pt will dc home w/Family SUSAN Andreina at home care notified, and pt scheduled for dialysis tomorrow. DC Plan: Homecare + wound vac Date Signed: 08/22/2018 11:11 AM Electronically Signed By:Elvira Lazcano RN
--- NOTE | 2018-08-22 13:14 | GOP ---
[f rep st] OPERATIVE REPORT DATE OF OPERATION: 08/19/2018 SURGEON: Jose Carlos Patel MD ANESTHESIA: General. PREOPERATIVE DIAGNOSIS: Left ankle infection. Postop diagnose same. POSTOPERATIVE DIAGNOSIS: Left ankle infection. PROCEDURE PERFORMED: 1. Irrigation and debridement, left ankle. 2. Application of wound VAC. FINDINGS: ESTIMATED BLOOD LOSS: Minimal. INDICATIONS: The patient is a 57-year-old with a complex history relative to his left lower leg. He had previously undergone ankle disarticulation. Attempts were being done to try to save an amputati on at this level due to his vision impairment. Repeat irrigation debridement and VAC change in the o perating room were recommended. DESCRIPTION OF PROCEDURE: The patient was brought to the operating room. He was placed in supine po sition where general anesthetic was administered. A tourniquet was placed on his left thigh, but not inflated. The left lower extremity was prepped and draped in standard sterile fashion. Utilizing a wide gauge cystoscopy tubing, 6 L of normal saline was flushed through the wound. Any dysvascular o r nonviable tissue was debrided. No gross purulence was seen. The wound VAC was applied and favorab le suction and seal obtained. The patient was taken to the recovery room, extubated in stable condit ion. All sponge, needle and instrument counts were reported as being correct. PLAN: The patient will be taken back to the floor for medical management. He would be brought back to the operating room at a later date for hopeful closure of his ankle disarticulation level versus b elow-knee amputation. /[id number]/MODL
--- NOTE | 2018-08-26 10:41 | PQFORM ---
PHYSICIAN QUERY FORM Needs Your Response This query form is being sent to you to assure this patient record is coded properly. Please respond to the question below: INFANTRY SENIOR SERGEANT QUESTION: Dear Dr. Patel, For coding purposes (there is a different code choice for excisional versus non excisional debridement)- please clarify if the debridement done on Aug 16, 2018 was: ___~ Excisional _X__~ Non Excisional ___~ Other Thank You Jerrica Galicia, PAPER COATING MACHINE OPERATOR HIM/Coding Dept INSTRUCTIONS FOR RESPONSE: Answer question by clicking on the "Edit Document" button. Move cursor to area below the stars. When complete, hit "Save." Click on the "Sign" button, then click "Sign" again. Type in your PIN and hit "Enter." MTDD
--- NOTE | 2018-08-26 10:42 | PQFORM ---
PHYSICIAN QUERY FORM Needs Your Response This query form is being sent to you to assure this patient record is coded properly. Please respond to the question below: DYSLEXIA TEACHER QUESTION: Dear Dr. Patel, For coding purposes (there is a different code choice for excisional versus non excisional debridement)- please clarify if the debridement done on Aug 19, 2018 was: ___~ Excisional _X__~ Non Excisional ___~ Other Thank You Jerrica Galicia, MULTI DISCIPLINED LANGUAGE ANALYST HIM/Coding Dept. INSTRUCTIONS FOR RESPONSE: Answer question by clicking on the "Edit Document" button. Move cursor to area below the stars. When complete, hit "Save." Click on the "Sign" button, then click "Sign" again. Type in your PIN and hit "Enter." MTDD
== END 2018-08-22 11:10 | disposition home health service (06) | DRG 617 ==
LOC: EDSTATUS 17:00 → F3N 21:05
PROVIDERS: ADMIT Internal Medicine; ATTEND Internal Medicine
PROC: 0Y6N0Z0 Detachment at Left Foot, Complete, Open Approach (ICD-10-PCS; principal; 2018-08-13 17:00)
PROC: 5A1D70Z Performance of Urinary Filtration, Intermittent, Less than 6 Hours Per Day (ICD-10-PCS; 2018-08-15)
PROC: 0LDT0ZZ Extraction of Left Ankle Tendon, Open Approach (ICD-10-PCS; 2018-08-16)
PROC: 0JDP3ZZ Extraction of Left Lower Leg Subcutaneous Tissue and Fascia, Percutaneous Approach (ICD-10-PCS; 2018-08-19)
DX: E11.621 Type 2 diabetes mellitus with foot ulcer (principal); L97.326 Non-pressure chronic ulcer of left ankle with bone involvement without evidence of necrosis; I12.0 Hypertensive chronic kidney disease with stage 5 chronic kidney disease or end stage renal disease; N18.6 End stage renal disease; E11.649 Type 2 diabetes mellitus with hypoglycemia without coma; I25.10 Atherosclerotic heart disease of native coronary artery without angina pectoris; E86.9 Volume depletion, unspecified; G89.4 Chronic pain syndrome; D63.1 Anemia in chronic kidney disease; E87.5 Hyperkalemia; Z72.0 Tobacco use; Z95.1 Presence of aortocoronary bypass graft; Z99.2 Dependence on renal dialysis
CPT/HCPCS: 96374; 97161-GP; 97165-GO; 97530-GO; 97535-GO; G0515-GO; J0690; J0885; J1100; J1170; J1644; J1815; J2001; J2250; J2270; J2274; J2405; J2704; J3010

== ENCOUNTER 2018-08-26 16:43 | Emergency (ER) | payer OTHER, MEDICAID ==
--- NOTE | 2018-08-26 17:19 | EDPHY ---
H & P Stated Complaint: wound vac issues Time Seen by Provider: 08/26/18 17:09 HPI/ROS: CHIEF COMPLAINT: Wound care HISTORY OF PRESENT ILLNESS: Patient is a 57-year-old man with a history of coronary artery disease status post CABG, end-stage renal disease on hemodialysis as well as diabetes and COPD on oxygen. He has had a long standing osteomyelitis in his left leg with foot amputation and wound VAC in place. He states that yesterday during dialysis he noticed that the wound VAC had broken. When his wound VAC nurse came last night and change the dressing it was foul smelling an exudative. They called Dr. Patel who recommended he come to the ER. The patient states that he was too tired to come to the ER. Instead he took 1 of his left over ciprofloxacin. His new wound VAC arrived today and his wound VAC nurse replaced it. Today it was not foul smelling and appeared much exhibit cleaner. No surrounding cellulitic changes. No fever. No warmth. The patient does not think that he needs to be here. Severity: Moderate Modifying factors: None REVIEW OF SYSTEMS: Constitutional: denies: chills, fever, recent illness, recent injury EENTM: denies: blurred vision, double vision, nose congestion Respiratory: denies: cough, shortness of breath Cardiac: denies: chest pain, irregular heart rate, lightheadedness, palpitations Gastrointestinal/Abdominal: denies: abdominal pain, diarrhea, nausea, vomiting, blood streaked stools Genitourinary: denies: dysuria, frequency, hematuria, pain Musculoskeletal: denies: joint pain, muscle pain Skin: See HPI Neurological: denies: headache, numbness, paresthesia, tingling, dizziness, weakness Hematologic/Lymphatic: denies: blood clots, easy bleeding, easy bruising Immunologic/allergic: denies: HIV/AIDS, transplant 10 systems reviewed and negative except as noted EXAM: GENERAL: Well-appearing, well-nourished and in no acute distress. HEAD: Atraumatic, normocephalic. EYES: Pupils equal round and reactive to light, extraocular movements intact, sclera anicteric, conjunctiva are normal. ENT: TMs normal, nares patent, oropharynx clear without exudates. Moist mucous membranes. NECK: Normal range of motion, supple without lymphadenopathy or JVD. LUNGS: Breath sounds clear to auscultation bilaterally and equal. No wheezes rales or rhonchi. HEART: Regular rate and rhythm without murmurs, rubs or gallops. ABDOMEN: Soft, nontender, normoactive bowel sounds. No guarding, no rebound. No masses appreciated. BACK: No CVA tenderness, no spinal tenderness, step-offs or deformities EXTREMITIES: See HPI, Normal range of motion, no pitting or edema. No clubbing or cyanosis. NEUROLOGICAL: Cranial nerves II through XII grossly intact. Normal speech, normal gait. 5/5 strength, normal movement in all extremities, normal sensation , normal reflexes PSYCH: Normal mood, normal affect. SKIN: Left foot amputation, wound VAC in place, no obvious surrounding cellulitis or warmth. Source: Patient Exam Limitations: No limitations - Personal History Current Tetanus/Diphtheria Vaccine: Yes Current Tetanus Diphtheria and Acellular Pertussis (TDAP): Yes - Medical/Surgical History Hx Asthma: No Hx Chronic Respiratory Disease: Yes Hx Diabetes: Yes Hx Cardiac Disease: Yes Hx Renal Disease: Yes Hx Cirrhosis: No Hx Alcoholism: No Hx HIV/AIDS: No Hx Splenectomy or Spleen Trauma: No Other PMH: CAD s/p CABG/ESRD on DIALYSIS/ DM2. 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 HTN/ COPD on home 02/ chronic osteomyelitis, L foot amputation - Family History Significant Family History: No pertinent family hx - Social History Smoking Status: Current every day smoker Alcohol Use: None Constitutional: Initial Vital Signs Temperature (C) 36.9 C 08/26/18 16:51 Heart Rate 80 08/26/18 16:51 Respiratory Rate 16 08/26/18 16:51 Blood Pressure 126/54 H 08/26/18 16:51 O2 Sat (%) 97 08/26/18 16:51 O2 Delivery Mode Room Air Allergies/Adverse Reactions: No Known Allergies Allergy (Verified 08/26/18 16:51) Home Medications: Medication Instructions Recorded Albuterol [Proventil Inhaler HFA 2 puffs IH Q6HRS PRN 05/09/18 (*)] Atorvastatin Calcium [Lipitor 40 40 mg PO HS 05/09/18 mg (*)] Carvedilol [Coreg (*)] 6.25 mg PO BIDMEAL 05/09/18 Nitroglycerin [Nitrostat 0.4 mg 0.4 mg SL Q5M PRN 05/09/18 (*)] traZODone [traZODONE 50MG (*)] 50 mg PO HS 05/09/18 Aspirin [Aspirin 81mg (*)] 81 mg PO DAILY 05/14/18 Calcium Acetate [Phoslo (*)] 667 mg PO TIDMEAL 07/22/18 LORazepam [Ativan (*)] 1 mg PO HS PRN 07/22/18 busPIRone [Buspar (*)] 15 mg PO BID PRN 07/22/18 Sertraline HCl [Zoloft 100mg (*)] 100 mg PO DAILY 08/13/18 Gabapentin [Neurontin 300 MG (*)] 300 mg PO TID #90 cap 08/21/18 Hydrocodone/APAP 5/325 [Stafford 1 - 2 tab PO Q4H PRN #50 tab 08/21/18 5/325 (*)] Lisinopril 20 mg PO DAILY #30 tablet 08/21/18 Polyethylene Glycol 3350 [Miralax 17 gm PO DAILY PRN pkt 08/21/18 17 gm (*)] Sennosides/Docusate Sodium 1 - 2 tab PO BID #0 tab 08/21/18 [Senokot-S] Ciprofloxacin [Cipro] 500 mg PO BID #20 tab 08/26/18 Medical Decision Making ED Course/Re-evaluation: Patient and his wound care nurse state that his wound is looking much better today than it did yesterday. He did restart his antibiotics yesterday. He is here asking for refill. He has wound care following with them every day for the next few days. I did not undress his wound. He would prefer that I did not. It is not tender. He and his nurse will reassess tomorrow and follow up with Dr. Patel or return here if his symptoms return or worsen. I believe that this is a viable plan. Differential Diagnosis: Partial list of the Differential diagnosis considered include but were not limited to; chronic wound infection, osteomyelitis, and although unlikely based on the history and physical exam, I also considered cellulitis, abscess, sepsis. I discussed these differential diagnoses and the plan with the patient as well as the usual and expected course. The patient understands that the diagnosis is provisional and that in medicine we are not always correct and that further workup is often warranted. Usual and customary warnings were given. All of the patient's questions were answered. The patient was instructed to return to the emergency department should the symptoms at all worsen or return, otherwise to followup with the physician as we discussed. Departure - Departure Disposition: Home, Routine, Self-Care Clinical Impression: ESRD on dialysis Chronic osteomyelitis involving ankle and foot Qualifiers: Laterality: left Qualified Code(s): M86.672 - Other chronic osteomyelitis, left ankle and foot Condition: Fair Instructions: Osteomyelitis (ED) Referrals: TIFFANIE SERRANO [Other] - As per Instructions Jose Carlos Patel MD [Medical Doctor] - As per Instructions Prescriptions: Ciprofloxacin [Cipro] 500 mg PO BID #20 tab
[2018-08-26 17:45] VITALS: BP 137/76
== END 2018-08-26 17:48 | disposition home or self-care (01) ==
DX: M86.672 Other chronic osteomyelitis, left ankle and foot (principal); I12.0 Hypertensive chronic kidney disease with stage 5 chronic kidney disease or end stage renal disease; N18.6 End stage renal disease; J44.9 Chronic obstructive pulmonary disease, unspecified; E11.9 Type 2 diabetes mellitus without complications; I25.10 Atherosclerotic heart disease of native coronary artery without angina pectoris; Z99.2 Dependence on renal dialysis; Z95.1 Presence of aortocoronary bypass graft; Z99.81 Dependence on supplemental oxygen; Z89.432 Acquired absence of left foot

== ENCOUNTER 2018-09-02 10:17 | Inpatient (IN) | payer OTHER, MEDICAID ==
[2018-09-02] MEDS ORDERED: LR 1,000 ML IV ONE (10:38)
[2018-09-02] MEDS ORDERED: NS 1,000 ML IV ONE (11:13)
[2018-09-02 11:19] LABS: PLATELET COUNT 416 10^3/uL (150-400)
[2018-09-02] MEDS ORDERED: ONDANSETRON 4 MG/2 ML VIAL IVP PRN (11:26)
[2018-09-02] MEDS ORDERED: fentaNYL 100 MCG/2 ML INJ IVP PRN (11:26)
[2018-09-02] MEDS ORDERED: ACETAMINOPHEN 500 MG TAB PO PRN (11:26)
[2018-09-02] MEDS ORDERED: oxyCODONE IR 5 MG TAB PO PRN (11:26)
[2018-09-02] MEDS ORDERED: NALOXONE HCL 0.4 MG/ML INJ IVP PRN ×2 (11:26→13:53)
--- NOTE | 2018-09-02 11:28 | PDANEPAE ---
ANE History of Present Illness Completion Amputation ANE Past Medical History - Cardiovascular History Hx Hypertension: Yes Hx Arrhythmias: No Hx Chest Pain: No Hx Coronary Artery / Peripheral Vascular Disease: Yes Hx CHF / Valvular Disease: Yes Hx Palpitations: No Cardiovascular History Comment: htn. hyperlipidemia. CAD s/p cabg. PVD - Pulmonary History Hx COPD: Yes Hx Asthma/Reactive Airway Disease: No Hx Recent Upper Respiratory Infection: No Hx Oxygen in Use at Home: Yes Hx Sleep Apnea: No Pulmonary History Comment: sherley triggers - Neurologic History Hx Cerebrovascular Accident: Yes Hx Seizures: No Hx Dementia: No Neurologic History Comment: hx of cva. diabetic neuropathy - Endocrine History Hx Diabetes: Yes Endocrine History Comment: type 2 - Renal History Hx Renal Disorders: Yes Renal History Comment: ESRD with dialysis - Liver History Hx Hepatic Disorders: Yes Hepatic History Comment: elevated LFTs - Neurological & Psychiatric Hx Hx Neurological and Psychiatric Disorders: No - Cancer History Hx Cancer: No - Congenital Disorder History Hx Congenital Disorders: No - GI History Hx Gastrointestinal Disorders: No - Other Health History Other Health History: glaucoma. 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 hard of hearing no aides - Chronic Pain History Chronic Pain: No - Surgical History Prior Surgeries: 05.15.18 i&d left heel with Marthaller, CABG, left fot amputation ANE Review of Systems Review of Systems: - Exercise capacity METS (RN): 2 METS ANE Patient History - Allergies Allergies/Adverse Reactions: No Known Allergies Allergy (Verified 08/26/18 16:51) - Home Medications Home Medications: Albuterol [Proventil Inhaler HFA (*)] 2 puffs IH Q6HRS PRN 05/09/18 [Last Taken 09/01/18] Atorvastatin Calcium [Lipitor 40 mg (*)] 40 mg PO HS 05/09/18 [Last Taken ] Carvedilol [Coreg (*)] 6.25 mg PO BIDMEAL 05/09/18 [Last Taken 09/01/18] Nitroglycerin [Nitrostat 0.4 mg (*)] 0.4 mg SL Q5M PRN 05/09/18 [Last Taken ] traZODone [traZODONE 50MG (*)] 50 mg PO HS 05/09/18 [Last Taken 08/31/18] Aspirin [Aspirin 81mg (*)] 81 mg PO DAILY 05/14/18 [Last Taken 08/12/18] Calcium Acetate [Phoslo (*)] 667 mg PO TIDMEAL 07/22/18 [Last Taken 09/01/18] LORazepam [Ativan (*)] 1 mg PO HS PRN 07/22/18 [Last Taken 09/01/18] busPIRone [Buspar (*)] 15 mg PO BID PRN 07/22/18 [Last Taken 09/01/18] Sertraline HCl [Zoloft 100mg (*)] 100 mg PO DAILY 08/13/18 [Last Taken 09/01/18] glipiZIDE [Glipizide] 10 mg PO BID 09/02/18 [Last Taken 09/01/18] - NPO status NPO Since - Liquids (Date): 09/02/18 NPO Since - Liquids (Time): 00:01 NPO Since - Solids (Date): 09/02/18 NPO Since - Solids (Time): 00:01 - Smoking Hx Smoking Status: Current every day smoker - Family Anes Hx Family Hx Anesthesia Complications: none ANE Labs/Vital Signs - Labs Result Diagrams: 09/02/18 11:07 09/02/18 11:07 - Vital Signs Blood Pressure: 119/62 Heart Rate: 83 Respiratory Rate: 16 O2 Sat (%): 98 Height: 172.72 cm Weight: 89 kg ANE Physical Exam - Airway Neck exam: FROM Mallampati Score: Class 2 - Pulmonary Pulmonary: clear to auscultation - Cardiovascular Cardiovascular: regular rate and rhythym - ASA Status ASA Status: III ANE Anesthesia Plan Anesthesia Plan: GA w LMA
[2018-09-02] MEDS ORDERED: fentaNYL 100 MCG/2 ML INJ ONE ×2 (11:30→13:49)
[2018-09-02] MEDS ORDERED: PROPOFOL 200 MG/20 ML VIAL ONE (11:30)
--- NOTE | 2018-09-02 11:35 | PDHPUP ---
History & Physical Update H&P update statement: This history and physical update is based on an assessment of the patient which was completed after admission or registration (within 24 hours), but prior to the surgery/procedure. H&P update: H&P reviewed & patient examined, no change in patient's condition since H&P completed
[2018-09-02] MEDS ORDERED: ceFAZolin 2 GM/DEXTROSE 100 ML IV ONE (11:36)
[2018-09-02] MEDS: fentaNYL 100 MCG/2 ML INJ IVP PRN ×2 (11:38→13:57)
[2018-09-02] MEDS ORDERED: ePHEDrine SULFATE 25 MG/5 ML SYR ONE (12:03)
[2018-09-02] MEDS ORDERED: ONDANSETRON 4 MG/2 ML VIAL ONE (12:04)
--- NOTE | 2018-09-02 13:48 | POSTANESTH ---
Post Anesthetic Evaluation Cardiovascular Status: Normal, Stable Respiratory Status: Normal, Stable Level of Consciousness/Mental Status: Can Participate in Eval, Mildly Sleepy, Arousable Pain Control: Adequate, Prn Tx Ordered Nausea/Vomiting Control: Adequate, Prn Tx Ordered Complications Possibly Related to Anesthesia: None Noted
[2018-09-02] MEDS ORDERED: HYDROCODONE/APAP 5/325 TAB PO PRN (13:53)
[2018-09-02] MEDS ORDERED: PROMETHAZINE HCL 25 MG/ML INJ IVP PRN (13:53)
--- NOTE | 2018-09-02 13:53 | POSTOPPROG ---
Post Op Note Date of Operation: 09/02/18 Surgeon: Jose Carlos Patel Anesthesia: LMA Pre-op Diagnosis: L ankle infection Post-op Diagnosis: same Procedure: L symes amputation Inf/Abcess present in the surg proc area at time of surgery?: Yes Depth: Deep Incisional (Fascial) Drains: Constavac
[2018-09-02] MEDS ORDERED: HYDROmorphONE/DILAUDID 2 MG/ML INJ ONE (13:59)
[2018-09-02] MEDS ORDERED: ALBUTEROL 60 PUFFS/8 GM MDI IH PRN (13:59)
[2018-09-02] MEDS ORDERED: POLYETHYLENE GLYCOL 3350 17 GM PKT PO PRN (13:59)
[2018-09-02] MEDS ORDERED: LORazepam 1 MG TAB PO PRN (13:59)
[2018-09-02] MEDS ORDERED: busPIRone 15 MG TAB PO PRN (13:59)
[2018-09-02] MEDS ORDERED: NITROGLYCERIN 0.4 MG BTL SL PRN (13:59)
[2018-09-02] MEDS ORDERED: oxyCODONE IR 5 MG TAB ONE (13:59)
[2018-09-02] MEDS ORDERED: D5W 1/2 NS W/ 20 KCl/L 1,000 ML IV SCH (14:00)
[2018-09-02] MEDS ORDERED: HYDROmorphONE/DILAUDID 6 MG/30 ML PCA IV PRN (14:02)
[2018-09-02] MEDS: HYDROmorphONE/DILAUDID 2 MG/ML INJ IVP PRN ×2 (14:02→14:12)
--- NOTE | 2018-09-02 14:32 | GOP ---
[f rep st] OPERATIVE REPORT DATE OF OPERATION: 09/02/2018 SURGEON: Jose Carlos Patel MD ANESTHESIA: General. PREOPERATIVE DIAGNOSIS: Left ankle infection. POSTOPERATIVE DIAGNOSIS: Left ankle infection. PROCEDURE PERFORMED: 1. Left distal tibial ("high Symes") amputation. 2. Irrigation, debridement of left ankle. FINDINGS: ESTIMATED BLOOD LOSS: Minimal. INDICATIONS: The patient is a 57-year-old with a very involved history relative to his left ankle. He previously underwent an ankle disarticulation for gross infection. He had undergone additional mu ltiple irrigation, debridements, and wound VAC treatment. Based on his visual deficit, it was hopefu l that a Syme's type amputation could be salvaged, rather than a below-knee amputation. The patient acknowledged he understood the potential risks, including, but not limited to bleeding, infection, ne urovascular damage, loss of limb or limb function, inability to heal at this level necessitating a be low-knee amputation, and anesthetic risks. He acknowledged he understood the potential risks, planne d procedure, and postoperative plan well, and had all questions answered prior to surgery. He gave h is consent for the operative procedure. DESCRIPTION OF PROCEDURE: The patient was brought to the operating room after IV antibiotics were ad ministered. He was placed in the supine position where general anesthetic was administered. A tourn iquet was placed on his left thigh and his left lower extremity was prepped and draped in standard st erile fashion. There was no evidence of "gross infection." The fibrotic soft tissue, including port ions of the peroneal, anterior and extensor tendons, and posterior tibial tendon, as well as the Achi lles were debrided and cut back to "clean" levels. Utilizing an elevator, the periosteum was freed o ff the tibia and fibula to a level that would enable closure of the wound. A saw was utilized to tra nsect both of these. This allowed for the soft tissue tension to be closable without any undue stres s. Prior to commencing this, the wounds were copiously irrigated with 3 liters of sterile saline wit h cystoscopy tubing. After the bone cuts, additional debridement and additional irrigation was perfo rmed. A 10-Tajik Norman-Merida drain was placed prior to closure. Deep tissue was closed with 2-0 Vicryl suture in interrupted fashion, subcutaneous tissue closed with 3-0 Vicryl suture in interrupted fashi on. Skin closed with a combination of 3-0 and 2-0 nylon interrupted "spider" stitches. Wounds were dressed with sterile Adaptic, 4 x 4, Kerlix, and Carson wrap. The patient was taken to the recovery [facility], extubated in stable condition postoperatively. All sponge, needle, and instrument counts were rep orted as being correct. DRAINS: None. COMPLICATIONS: None. PLAN: Patient will be admitted for overnight observation. He will be nonweightbearing on his operat katie extremity. He acknowledged that if this does not heal, a below-knee amputation would be necessar y. /[id number]/MODL
[2018-09-02] MEDS: oxyCODONE IR 5 MG TAB PO PRN ×3 (14:54→21:39)
[2018-09-02] MEDS: GABAPENTIN 300 MG CAP PO SCH ×2 (14:55→20:33)
[2018-09-02] MEDS: HYDROmorphONE/DILAUDID 1 MG/ML INJ IVP PRN ×4 (15:23→23:58)
--- NOTE | 2018-09-02 15:44 | ASMTLACE ---
MARTIN Acuity / Level of Answers: Yes Care: Did the patient have an inpatient admission? Comorbidities - select Answers: Cerebrovascular disease all that apply (CVA, TIA, aneurysms, vasc ular dementia) Chronic pulmonary disease Congestive heart failure Coronary Artery Disease Diabetes (uncontrolled or controlled) Moderate or severe liver or renal disease Peripheral vascular disease Other Notes: HTN # of Emergency department Answers: 3-4 visits in the last 6 months Score: 20 Date Signed: 09/02/2018 03:43 PM Electronically Signed By:Kathi Limon
--- NOTE | 2018-09-02 16:55 | PDMN ---
Medical Necessity Medical necessity: [facility] IP only surgery, cpt 29854 Amputation
[2018-09-02] MEDS: CALCIUM ACETATE 667 MG CAP PO SCH (17:11)
[2018-09-02] MEDS: CARVEDILOL 6.25 MG TAB PO SCH (17:12)
[2018-09-02] MEDS: ceFAZolin 2 GM/DEXTROSE 100 ML IV SCH (20:32)
[2018-09-02] MEDS: glipiZIDE 10 MG TAB PO SCH (20:32)
[2018-09-02] MEDS: CIPROFLOXACIN 500 MG TAB PO SCH (20:32)
[2018-09-02] MEDS: SENNOSIDES/DOCUSATE SODIUM TAB PO SCH (20:33)
[2018-09-02] MEDS ORDERED: ATORVASTATIN CALCIUM 40 MG TAB PO SCH (21:00)
[2018-09-02] MEDS ORDERED: traZODone 50 MG TAB PO SCH (21:00)
[2018-09-03] MEDS ORDERED: ACETAMINOPHEN 500 MG TAB PO PRN (01:08)
[2018-09-03] MEDS: oxyCODONE IR 5 MG TAB PO PRN ×3 (01:16→08:14)
[2018-09-03] MEDS: ceFAZolin 2 GM/DEXTROSE 100 ML IV SCH (04:55)
--- NOTE | 2018-09-03 06:10 | SOAPPROG ---
SOAP Progress Note Assessment/Plan: Assessment: S/P L Symes amputation Pain controlled on po meds Leandro po Dressing/drain intact, sang D/C Plan: D/C home 09/03/18 06:07 Objective: Vital Signs Temp Pulse Resp BP Pulse Ox 37.7 C 94 16 128/82 H 98 09/03/18 04:00 09/03/18 04:00 09/03/18 04:00 09/03/18 04:00 09/03/18 04:00 Laboratory Results 09/02/18 11:07 09/02/18 11:07 09/02/18 09/03/18 09/04/18 05:59 05:59 05:59 Intake Total 560 Output Total 730 Balance -170 ICD10 Worksheet Patient Problems: Problems Problem Status Onset Decubitus ulcer of foot, stage 3 Acute Diabetic ulcer of left foot associated with secondary diabetes mellitus Acute ESRD on dialysis Acute Elevated LFTs Acute
[2018-09-03 07:38] VITALS: BP 136/72
[2018-09-03] MEDS: CIPROFLOXACIN 500 MG TAB PO SCH (08:14)
[2018-09-03] MEDS: glipiZIDE 10 MG TAB PO SCH (08:14)
[2018-09-03] MEDS: GABAPENTIN 300 MG CAP PO SCH (08:15)
[2018-09-03] MEDS: CALCIUM ACETATE 667 MG CAP PO SCH (08:15)
[2018-09-03] MEDS: SENNOSIDES/DOCUSATE SODIUM TAB PO SCH (08:16)
[2018-09-03] MEDS: CARVEDILOL 6.25 MG TAB PO SCH (08:16)
[2018-09-03] MEDS ORDERED: ASPIRIN 81 MG CHEWABLE TAB PO SCH (09:00)
[2018-09-03] MEDS ORDERED: SERTRALINE HCL 100 MG TAB PO SCH (09:00)
[2018-09-03] MEDS ORDERED: LISINOPRIL 20 MG TAB PO SCH (09:00)
--- NOTE | 2018-09-03 10:12 | ASMTCMCOM ---
CM Note CM Note Notes: Pt had a L symes amputation. Pt medically stable for d/c. No CM d/c needs identified. PT charted in notes pt d/c before they could eval and RN had no concerns. Date Signed: 09/03/2018 10:11 AM Electronically Signed By:DALLAS Ardon
--- NOTE | 2018-09-08 14:53 | GDS ---
[f rep st] DISCHARGE SUMMARY ADMISSION DIAGNOSIS: Left ankle infection. DISCHARGE DIAGNOSIS: Left ankle infection. OPERATIONS PERFORMED: On September 02 patient underwent completion of a distal tibial amputation (high beauchamp ymbrandanes). HISTORY RELATIVE TO THE ADMISSION: The patient is a 57-year-old with involved history with a foot an d ankle infection. He had previously undergone ankle disarticulation with multiple washouts. It was hoped based on his vision impairment that a more distal amputation could be salvaged. He presented for more definitive amputation level. HOSPITAL COURSE: Patient was taken to the operating room, was a direct admit, where irrigation debri kiarra was performed. It was felt that an attempt at a distal amputation could be tried. This was p erformed with closure without any undue tissue tension. His hospital course was unremarkable. On po stop day 1, his pain was tolerable. He was medically stable and felt to be in satisfactory condition for discharge. DISCHARGE DISPOSITION: Discharged home, nonweightbearing left lower extremity. FOLLOWUP: Will be in 1 week. /[id number]/MODL
== END 2018-09-03 08:41 | disposition home or self-care (01) | DRG 617 ==
LOC: F1N 10:17 → F3N 14:38
PROVIDERS: ADMIT Orthopaedic Surgery Foot and Ankle Surgery; ATTEND Orthopaedic Surgery Foot and Ankle Surgery
PROC: 0Y6J0Z3 Detachment at Left Lower Leg, Low, Open Approach (ICD-10-PCS; principal; 2018-09-02 12:00)
DX: E11.69 Type 2 diabetes mellitus with other specified complication (principal); M86.8X7 Other osteomyelitis, ankle and foot; I12.0 Hypertensive chronic kidney disease with stage 5 chronic kidney disease or end stage renal disease; N18.6 End stage renal disease; E11.40 Type 2 diabetes mellitus with diabetic neuropathy, unspecified; E78.5 Hyperlipidemia, unspecified; I25.10 Atherosclerotic heart disease of native coronary artery without angina pectoris; G47.33 Obstructive sleep apnea (adult) (pediatric); E11.51 Type 2 diabetes mellitus with diabetic peripheral angiopathy without gangrene; H40.9 Unspecified glaucoma; Z86.73 Personal history of transient ischemic attack (TIA), and cerebral infarction without residual deficits; Z72.0 Tobacco use; Z99.2 Dependence on renal dialysis; Z95.1 Presence of aortocoronary bypass graft
CPT/HCPCS: J0690; J1170; J2405; J2704; J3010

== ENCOUNTER 2018-11-04 13:31 | Inpatient (IN) | payer MEDICAID, OTHER ==
--- NOTE | 2018-11-03 13:21 | GHP ---
[f rep st] PREOP HISTORY AND PHYSICAL DATE OF ADMISSION: 11/04/2018 CHIEF COMPLAINT: Left lower leg infection. HISTORY OF PRESENT ILLNESS: Patient is an 58-year-old with a prolonged history in his right foot and ankle. He has undergone attempts at salvage with partial amputations and proximal Syme's amputation . He did well initially, but was having difficulty healing this wound. It was felt that a below kne e amputation is the only reasonable option for wound healing and ambulation. PAST MEDICAL HISTORY: Positive for diabetes, hypertension, heart disease, depression, asthma, and ki dney disease. MEDICINES: Include buspirone, carvedilol, ciprofloxacin, gabapentin, glipizide, Lantus insulin, bessy nopril, lorazepam, nitroglycerin, sertraline, trazodone, and Ventolin inhaler. ALLERGIES: There are no drug allergies. SOCIAL HISTORY: Positive for cigarette smoking of 1 pack per week. PHYSICAL EXAMINATION: GENERAL: He is alert and oriented x3. No acute distress. HEENT Head is nor mocephalic. He has diminished visual acuity. NECK: Supple. CHEST: Clear to auscultation with keith e mild rhonchi. HEART: Regular rate and rhythm. ABDOMEN: Soft, nontender, nondistended. GENITAL/ RECTAL/BREAST: Deferred. EXTREMITIES: Reveals drainage from the left distal tibial ampu tation stump. ASSESSMENT: 1. Nonhealing distal tibial amputation. 2. Left leg infection. PLAN: Patient scheduled to undergo below the knee amputation. /[id number]/MODL
[2018-11-04] MEDS ORDERED: NS 1,000 ML IV ONE (14:29)
[2018-11-04 14:41] LABS: PLATELET COUNT 411 10^3/uL (150-400)
[2018-11-04] MEDS ORDERED: MIDAZOLAM 2 MG/2 ML VIAL IVP ONE (14:50)
--- NOTE | 2018-11-04 14:50 | PDANEPAE ---
ANE History of Present Illness 58 yo for verito AVILA ANE Past Medical History - Cardiovascular History Hx Hypertension: Yes Hx Arrhythmias: No Hx Chest Pain: No Hx Coronary Artery / Peripheral Vascular Disease: Yes Hx CHF / Valvular Disease: Yes Hx Palpitations: No Cardiovascular History Comment: htn. hyperlipidemia. CAD s/p cabg. PVD. recently seen at [facility] 10/30/18 - Pulmonary History Hx COPD: Yes Hx Asthma/Reactive Airway Disease: No Hx Recent Upper Respiratory Infection: No Hx Oxygen in Use at Home: Yes O2 in Use at Home (L/minute): 3L at noc and during dialysis Hx Sleep Apnea: No Sleep Apnea Screening Result - Last Documented: Positive Pulmonary History Comment: sherley triggers - Neurologic History Hx Cerebrovascular Accident: Yes Hx Seizures: No Hx Dementia: No Neurologic History Comment: hx of cva. diabetic neuropathy - Endocrine History Hx Diabetes: Yes Endocrine History Comment: type 2 - Renal History Hx Renal Disorders: Yes Renal History Comment: ESRD with dialysis M-W-F - Liver History Hx Hepatic Disorders: Yes Hepatic History Comment: elevated LFTs - Neurological & Psychiatric Hx Hx Neurological and Psychiatric Disorders: No - Cancer History Hx Cancer: No - Congenital Disorder History Hx Congenital Disorders: No - GI History Hx Gastrointestinal Disorders: No - Other Health History Other Health History: glaucoma. 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 hard of hearing no aides - Chronic Pain History Chronic Pain: No - Surgical History Prior Surgeries: 10/31/18 dialysis cath exchange. 09/02/18 left foot amputation with Jorge. 08/19/18 left leg i&d with Jorge. 08/16/18 left ankle i&d with Linden. 08/15/18 left foot symes amputation with Linden. left partial calcanealectomy with Jorge. 05.15.18 i&d left heel with Marthaller. CABG ANE Review of Systems Review of Systems: - Exercise capacity METS (RN): 2 METS ANE Patient History - Allergies Allergies/Adverse Reactions: No Known Allergies Allergy (Verified 11/03/18 17:01) - Home Medications Home Medications: Albuterol [Proventil Inhaler HFA (*)] 2 puffs IH Q6HRS PRN 05/09/18 [Last Taken 11/04/18] Atorvastatin Calcium [Lipitor 40 mg (*)] 40 mg PO HS 05/09/18 [Last Taken ] Carvedilol [Coreg (*)] 6.25 mg PO BIDMEAL 05/09/18 [Last Taken 09/01/18] Nitroglycerin [Nitrostat 0.4 mg (*)] 0.4 mg SL Q5M PRN 05/09/18 [Last Taken ] traZODone [traZODONE 50MG (*)] 50 mg PO HS 05/09/18 [Last Taken 11/03/18] Aspirin [Aspirin 81mg (*)] 81 mg PO DAILY 05/14/18 [Last Taken 11/03/18] Calcium Acetate [Phoslo (*)] 667 mg PO TIDMEAL 07/22/18 [Last Taken 11/03/18] LORazepam [Ativan (*)] 1 mg PO HS PRN 07/22/18 [Last Taken 11/03/18] busPIRone [Buspar (*)] 15 mg PO BID PRN 07/22/18 [Last Taken 11/03/18] Sertraline HCl [Zoloft 100mg (*)] 100 mg PO DAILY 08/13/18 [Last Taken 11/03/18] glipiZIDE [Glipizide] 10 mg PO BID 09/02/18 [Last Taken 11/03/18] - NPO status NPO Since - Liquids (Date): 11/04/18 NPO Since - Liquids (Time): 13:30 NPO Since - Solids (Date): 11/03/18 NPO Since - Solids (Time): 21:00 - Smoking Hx Smoking Status: Current every day smoker - Family Anes Hx Family Hx Anesthesia Complications: none ANE Labs/Vital Signs - Labs Result Diagrams: 11/04/18 14:20 11/04/18 14:20 - Vital Signs Blood Pressure: 126/71 Heart Rate: 76 Respiratory Rate: 20 O2 Sat (%): 94 Height: 5 ft 8 in Weight: 89 kg ANE Physical Exam - Airway Neck exam: FROM Mallampati Score: Class 2 Mouth exam: normal dental/mouth exam - Pulmonary Pulmonary: no respiratory distress - Cardiovascular Cardiovascular: regular rate and rhythym - ASA Status ASA Status: III ANE Anesthesia Plan Anesthesia Plan: spinal Regional Anesthesia: single shot NB
[2018-11-04] MEDS ORDERED: fentaNYL 100 MCG/2 ML INJ ONE ×3 (14:55→18:54)
[2018-11-04] MEDS ORDERED: PROPOFOL/EMULSION 500 MG/50 ML BOTTLE IV ONE ×2 (14:55→15:41)
[2018-11-04] MEDS ORDERED: BUPIVACAINE/DEXTROSE 7.5MG/ML 2 ML SPINAL AMP SP ONE (14:56)
[2018-11-04] MEDS ORDERED: ceFAZolin 2 GM/DEXTROSE 100 ML IV ONE (15:00)
[2018-11-04] MEDS ORDERED: PROPOFOL 200 MG/20 ML VIAL ONE (16:53)
[2018-11-04] MEDS ORDERED: ONDANSETRON 4 MG/2 ML VIAL IVP PRN (16:58)
[2018-11-04] MEDS ORDERED: NALOXONE HCL 0.4 MG/ML INJ IVP PRN ×2 (16:58→18:12)
[2018-11-04] MEDS ORDERED: HYDROmorphONE/DILAUDID 1 MG/ML INJ IVP PRN (16:58)
[2018-11-04] MEDS ORDERED: ROPIVACAINE HCL 150 MG/30 ML INJ ONE (17:16)
--- NOTE | 2018-11-04 17:45 | POSTOPPROG ---
Post Op Note Date of Operation: 11/04/18 Surgeon: Jose Carlos Patel Anesthesia: Spinal Pre-op Diagnosis: Left lower leg infection Post-op Diagnosis: same Procedure: L BKA Inf/Abcess present in the surg proc area at time of surgery?: Yes Depth: Deep Incisional (Fascial) (Infection distal to the amputation site) EBL: 100-500
[2018-11-04] MEDS: fentaNYL 100 MCG/2 ML INJ IVP PRN ×4 (17:47→19:01)
[2018-11-04] MEDS ORDERED: D5W 1/2 NS 1,000 ML IV SCH (18:00)
--- NOTE | 2018-11-04 18:01 | POSTANESTH ---
Post Anesthetic Evaluation Cardiovascular Status: Normal, Stable Respiratory Status: Similar to Pre-op Cond. Level of Consciousness/Mental Status: Can Participate in Eval Pain Control: Adequate, Prn Tx Ordered, Inadeq, Add Tx Required Nausea/Vomiting Control: Adequate, Prn Tx Ordered Complications Possibly Related to Anesthesia: None Noted
[2018-11-04] MEDS ORDERED: HYDROmorphONE/DILAUDID 1 MG/ML INJ ONE (19:02)
[2018-11-04] MEDS: morphINE PCA 30 MG/30 ML PCA IV PRN (20:22)
[2018-11-04] MEDS: oxyCODONE IR 5 MG TAB PO PRN (21:44)
[2018-11-04] MEDS ORDERED: ceFAZolin 2 GM/DEXTROSE 100 ML IV SCH (22:00)
--- NOTE | 2018-11-04 23:31 | GOP ---
[f rep st] OPERATIVE REPORT DATE OF OPERATION: 11/04/2018 SURGEON: Jose Carlos Patel MD ANESTHESIA: Spinal plus femoral nerve block performed by the anesthesiologist at my request for postoperative pain management. PREOPERATIVE DIAGNOSIS: Left distal lower leg infection. POSTOPERATIVE DIAGNOSIS: Left distal lower leg infection. PROCEDURE PERFORMED: Left below-knee amputation with initial prosthetic fitting (rigid above knee cast). FINDINGS: ESTIMATED BLOOD LOSS: Approximately 150 mL.high DESCRIPTION OF PROCEDURE: The patient was brought to the operating room after IV antibiotics were administered. Spinal anesthetic was administered. The distal aspect of his lower leg was wrapped with gauze and Ioban occlusive dressing. The tourniquet was placed on the left thigh with bump underneath the left hip and shoulder, and left lower extremity was prepped and draped in standard sterile fashion over the aforementioned op site. Amputation incision was planned with a long posterior flap. Skin and subcutaneous tissue were sharply incised. Dissection was then carried with electrocautery unit. The anterior compartment musculature was cut with electrocautery unit. The tibia and fibula were circumferentially freed and protected with Hohmann retractors. A saw was utilized to create a transverse cut initially in both bones with an anterior bevel on the tibia. The deep posterior compartment and the soleus were debulked to allow for flap closure. The soleus was noted to have significant degenerative type changes without healthy muscle visible. The tibial and peroneal vessels and nerves were identified and provisionally clamped with hemostats. After cutting through the gastrocnemius and soleus posteriorly, amputated specimen was placed on the back table. The aforementioned vessels were suture ligated with 0 Vicryl and 0 silk ties. Tourniquet was deflated at this point with no untoward bleeding seen. Attempt towards performing a distal tib-fib arthrodesis was initially started. The lateral periosteum of the distal tibia and medial periosteum of the distal fibula were scored with a chisel. The cut portion of amputated fibula was taken for intramedullary passing of the screw at the distal tib-fib site. Upon drilling the fibula, there was cracking of the fibula at this level. It was not felt prudent that attempt at an Ertl type amputation be pursued based on inability to obtain screw purchase and the patient's overall health condition. After placement of a drain, attention was directed toward closure. The deep portion of the posterior compartment was brought up into the anterior fascia overlying the periosteum on the anterior tibia and secured with 0 PDS suture at multiple points. Next, deep layer was closed with 2-0 Vicryl suture in interrupted fashion, subcutaneous tissue closed with 3-0 Vicryl suture in interrupted fashion, and skin closed with 3-0 nylon interrupted vertical mattress sutures. No untoward tension was present in the flap. The flap had good blood flow. The wounds were dressed with sterile Adaptic, 4 x 4, and Kerlix, and the leg was placed in an above-knee cast in full extension. The patient was taken to the recovery room in stable condition postoperatively. All sponge, needle, and instrument counts were reported as being correct. DRAINS: A small Norman-Merida. COMPLICATIONS: None. PLAN: Patient will be admitted for pain management and gait training. He will be nonweightbearing on his amputation stump. /[id number]/MODL MTDD
[2018-11-05] MEDS: oxyCODONE IR 5 MG TAB PO PRN ×5 (00:49→18:13)
[2018-11-05] MEDS: morphINE PCA 30 MG/30 ML PCA IV PRN ×4 (01:12→20:30)
--- NOTE | 2018-11-05 05:41 | SOAPPROG ---
SOAP Progress Note Assessment/Plan: Assessment: S/P L BKA Pain despite femoral n. block Taking IV + po meds Robson po Cast intact, well fitting Drain D/Peterson Plan: Con't pain med regimen OOB as robson Dispo pending progress (home vs SNF vs rehab) 11/05/18 05:39 Objective: Vital Signs Temp Pulse Resp BP Pulse Ox 36.4 C 74 18 160/77 H 90 L 11/05/18 04:59 11/05/18 04:59 11/05/18 04:59 11/05/18 04:59 11/05/18 04:59 Laboratory Results 11/04/18 14:20 11/04/18 14:20 11/03/18 11/04/18 11/05/18 05:59 05:59 05:59 Intake Total 2049 Balance 2049 ICD10 Worksheet Patient Problems: Problems Problem Status Onset Decubitus ulcer of foot, stage 3 Acute Diabetic ulcer of left foot associated with secondary diabetes mellitus Acute ESRD on dialysis Acute Elevated LFTs Acute
[2018-11-05 09:12] LABS: PLATELET COUNT 362 10^3/uL (150-400)
--- NOTE | 2018-11-05 09:46 | PDMN ---
Medical Necessity Medical necessity: [facility] IP only surgery; cpt [id number] BKA
[2018-11-05] MEDS ORDERED: NITROGLYCERIN 0.4 MG BTL SL PRN (10:14)
[2018-11-05] MEDS ORDERED: ALBUTEROL 60 PUFFS/8 GM MDI IH PRN (10:14)
[2018-11-05] MEDS ORDERED: D50W 25 GM/50 ML SYR IVP PRN (10:19)
[2018-11-05] MEDS: SERTRALINE HCL 100 MG TAB PO SCH (11:07)
[2018-11-05] MEDS: CARVEDILOL 6.25 MG TAB PO SCH ×2 (11:07→18:13)
[2018-11-05] MEDS: LISINOPRIL 10 MG TAB PO SCH (11:07)
--- NOTE | 2018-11-05 11:18 | GCON ---
[f rep st] CONSULTATION DATE OF CONSULTATION: 11/05/2018 REASON FOR CONSULTATION: I was asked by Dr. Patel to see the patient in regard to his medical issue s including end-stage renal disease, diabetes, as well as coronary artery disease. HISTORY OF PRESENT ILLNESS: This is a 58-year-old man who is now status post left BKA postoperative day #1. He has a significant medical history including diabetes, end-stage renal disease, coronary a rtery disease, and COPD. He had had a few previous partial amputations, however, there were problems with the wound healing which required a BKA which was performed last night. His biggest complaints are having to urinate and severe pain in his left leg. He is getting some relief from his morphine P CA. He is denying any shortness of breath or chest pain. He did have a little bit of nausea earlier today. He undergoes dialysis Saturday, Saturday, Saturday, he tells me he will refuse dialysis today. He uses nocturnal oxygen. He had a CABG in 2014. PAST MEDICAL/SURGICAL HISTORY: 1. End-stage renal disease, on dialysis Saturday, Saturday, Saturday. 2. Diabetes mellitus, on oral medications. 3. Hypertension. 4. Coronary artery disease, status post CABG in 2014. 5. Depression. 6. COPD, on nocturnal oxygen. 7. Asthma. 8. BKA yesterday. MEDICATIONS: Please see medication reconciliation. ALLERGIES: No known drug allergies. FAMILY HISTORY: Reviewed, noncontributory. SOCIAL HISTORY: He smokes tobacco. REVIEW OF SYSTEMS: A 10-point review of systems is conducted, and is negative except per HPI. PHYSICAL EXAM: VITAL SIGNS: Blood pressure 152/78, heart rate 73, respiration rate 16, saturating 9 8% on room air. Temperature 36.6. GENERAL: The patient is a somewhat cantankerous man who appears somewhat uncomfortable. HEENT: Shows him to be normocephalic, atraumatic. CARDIOVASCULAR: Shows a regular rate and rhythm. No murmurs, rubs, or gallops. CHEST: Shows a right-sided tunneled hemodi alysis catheter with no surrounding erythema. PULMONARY: Shows him to be in no respiratory distress . Lungs are clear to auscultation bilaterally. ABDOMEN: Soft, nontender, nondistended. SKIN: Pili ws no rash. : Shows no Sheikh. EXTREMITIES: Shows him to be in an Carson bandage, status post left BKA. NEUROLOGIC: Shows him to be alert and oriented x3. He has no focal deficits. PSYCHIATRIC: S hows him to be slightly anxious appearing. LABS: CBC shows a white count of 14,000. Potassium is 3.5, bicarb is 21. DATA: 1. I discussed with Dr. Wilkinson. He will consult. 2. I reviewed his chart. 3. I reviewed his postoperative note by Dr. Patel which describes a left BKA. IMPRESSION AND PLAN: 1. Left below-knee amputation: Management per Dr. Patel. 2. End-stage renal disease: Dr. Wilkinson will consult. He is refusing dialysis today. I do not th ink he has any urgent need for dialysis regardless. 3. Diabetes mellitus. Will hold his glipizide today. Will put him on sliding scale insulin as his p.o. intake may not be as consistent as normal. 4. Coronary artery disease, status post coronary artery bypass graft. Will hold aspirin for now. Santos larose restart this in the next few days. 5. Chronic obstructive pulmonary disease. He is currently stable with no wheezes. He does not have an acute exacerbation. We will follow him while he is here. 6. Hypertension. Blood pressures are reasonable. I have restarted his antihypertensives, including Coreg and lisinopril. /[id number]/MODL
--- NOTE | 2018-11-05 12:18 | ASMTLACE ---
MARTIN Acuity / Level of Answers: Yes Care: Did the patient have an inpatient admission? Comorbidities - select Answers: Cerebrovascular disease all that apply (CVA, TIA, aneurysms, vasc ular dementia) Chronic pulmonary disease Congestive heart failure Coronary Artery Disease Diabetes (uncontrolled or controlled) Moderate or severe liver or renal disease Peripheral vascular disease Other Notes: HTN # of Emergency department Answers: 1-2 visits in the last 6 months Score: 18 Date Signed: 11/05/2018 12:17 PM Electronically Signed By:Kathi Limon
--- NOTE | 2018-11-05 12:23 | GCON ---
[f rep st] CONSULTATION DATE OF CONSULTATION: 11/05/2018 REASON FOR CONSULTATION: Opinion regarding end-stage kidney failure. HISTORY OF PRESENT ILLNESS: The patient is a pleasant 58-year-old gentleman with end-stage kidney fa ilure due to a combination of diabetes, hypertension and vascular disease. The patient dialyzes 3 ti mes weekly in [place] under the care of Dr. Pat Hester. The patient has known peripheral vas cular occlusive disease and had a distal leg amputation earlier this year. This subsequently did not heal well and became infected. He was admitted yesterday for a left eamkf-wtk-bacn amputation. The amputation went well, but he is having some pain currently. The patient has not been having fevers, chills, nausea, vomiting, chest pain. 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 No cough or sputum production. No hemoptysis, hematemesis, epistaxis, abdo kimo pain, melena, hematochezia, blurry vision, double vision, headache, orthopnea, paroxysmal noctu rnal dyspnea, palpitations, or syncope. PAST MEDICAL HISTORY: Significant for: 1. End-stage kidney failure on 6-ovukj-jbalxh dialysis. 2. Diabetes mellitus type 2 with multiple complications. 3. Hypertension. 4. Coronary artery disease. 5. Asthma. 6. Depression. 7. Chronic pain. ALLERGIES: None known. FAMILY HISTORY: Noncontributory to this admission. SOCIAL HISTORY: He is a current 2 to 3 cigarettes per day tobacco user. He does not use IV drugs. He does not use alcohol for least 7 years. He does smoke marijuana, which helps with his glaucoma, a s well as pain management. REVIEW OF SYSTEMS: A complete 12-point review of systems was performed with pertinent positives and negatives as per the previous sections. PHYSICAL EXAMINATION: VITAL SIGNS: Blood pressure 152/78, pulse 102, respirations 73, temp 36.6 deg anmol. GENERAL: He is awake, alert, cooperative. He is in pain. HEENT: His left eye is cloudy. R ight eye is reactive to light. Mucous membranes are moist. NECK: Neck has a tunneled right IJ hemo dialysis catheter in place. HEART: Regular with a grade 2/6 systolic murmur. No rub. No S3. LUNG S: Rales in the bases. No rhonchi. Occasional wheezes. ABDOMEN: Bowel sounds are positive. Soft , nontender and nondistended. EXTREMITIES: His left lower extremity is wrapped postoperatively. He does have trace edema on the right. NEUROLOGIC: No asterixis. SKIN: He has changes of arterial a nd venous insufficiency in his lower extremity on the right. LYMPH: No palpable lymphadenopathy or lymphedema. MUSCULOSKELETAL: No effusions. His left leg is tender. LABORATORY: WBC 14.95, hemoglobin 11.6, hematocrit 35.2, platelet count 362,000. Serum sodium 133, potassium 3.5, chloride 97, CO2 21, BUN 63, creatinine 4.5, glucose 130, calcium 8.6. IMPRESSION: 1. End-stage kidney failure on 0-qszzh-zxzmoj dialysis, usually on Mondays, Wednesdays, and Fridays. 2. Diabetes mellitus type 2 with multiple complications. 3. Hypertension, under reasonably good control for the most part. 4. Coronary artery disease. 5. Peripheral vascular occlusive disease. 6. Postop day 1 of his left hhbmd-fhl-xpjt amputation. 7. Asthma. 8. Depression. 9. Coronary artery disease, which is currently quiescent. RECOMMENDATIONS: 1. We would like to do dialysis today. The patient is in a significant amount of pain and does not think he can get through dialysis. I think that is fine, there are no emergent dialysis needs at thi s time. We will plan on doing his dialysis tomorrow. 2. Pain control. 3. Continue his other medications. 4. Physical therapy. Thank you for allowing me to participate in the care of your patient. If there are any questions, pl ease do not hesitate to contact us. We will be following along with you. /[id number]/MODL
[2018-11-05] MEDS: INSULIN LISPRO 100 UNIT/ML SC SCH ×2 (15:07→18:15)
[2018-11-05] MEDS: CALCIUM ACETATE 667 MG CAP PO SCH ×2 (15:07→18:13)
[2018-11-05] MEDS: GABAPENTIN 300 MG CAP PO SCH ×2 (15:16→21:18)
[2018-11-05] MEDS: busPIRone 15 MG TAB PO PRN (15:16)
--- NOTE | 2018-11-05 16:01 | ASMTCMCOM ---
CM Note CM Note Notes: Pt with numerous co-morbidities including COPD, ESRD, CAD, HTN, diabetes, depression is s/p L BKA. Pt known to [facility] and with regards to current situation pt states "everything is the same." Pt still has [facility], goes to [facility] for MWF dialysis and resides with friend Jaleesa. OT/PT clear pt for home. Pt has DME. D/c plan: Pt will d/c with resumption of care with [facility] Date Signed: 11/05/2018 04:00 PM Electronically Signed By:DALLAS Ardon
[2018-11-05] MEDS: ATORVASTATIN CALCIUM 40 MG TAB PO SCH (21:18)
[2018-11-05] MEDS: traZODone 50 MG TAB PO SCH (21:19)
[2018-11-05] MEDS: HYDROCODONE/APAP 5/325 TAB PO PRN (21:19)
[2018-11-06] MEDS: oxyCODONE IR 5 MG TAB PO PRN ×2 (03:31→11:19)
[2018-11-06] MEDS: INSULIN LISPRO 100 UNIT/ML SC SCH ×3 (07:57→18:40)
[2018-11-06] MEDS: morphINE PCA 30 MG/30 ML PCA IV PRN ×2 (09:06→18:33)
[2018-11-06] MEDS ORDERED: ALTEPLASE 2 MG VIAL IVP ONE (10:44)
--- NOTE | 2018-11-06 10:59 | SOAPPROG ---
SOJEROMY Progress Note Assessment/Plan: Assessment/Plan: ESRD: on HD MWF, refused HD yesterday. - Pt seen on HD today. - Will do short HD tomorrow to keep on schedule. HTN: BP above goal but also in pain, will continue current meds. AMADOR: continue phos binder, will check phos in am. Anemia: Hgb 11.6, no need for epo. Subjective: No acute events overnight. 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 He is on HD and tolerating well, noted that catheter not working as smoothly and getting lower BF. Objective: Vital Signs Temp Pulse Resp BP Pulse Ox 36.7 C 78 18 154/52 H 97 11/06/18 07:45 11/06/18 07:45 11/06/18 07:45 11/06/18 07:45 11/06/18 07:45 Laboratory Results 11/05/18 08:55 11/05/18 08:55 11/05/18 11/06/18 11/07/18 05:59 05:59 05:59 Intake Total 2049 950 Output Total 850 Balance 2049 100 General: alert and oriented, mild distress Eyes: EOMI OP: clear CV: RRR, no edema RLE Resp: CTA bilat, nonlabored respirations Abd: Soft, NT/ND Ext: L leg bandaged Access: RIJ tunneled catheter ICD10 Worksheet Patient Problems: Problems Problem Status Onset Decubitus ulcer of foot, stage 3 Acute Diabetic ulcer of left foot associated with secondary diabetes mellitus Acute ESRD on dialysis Acute Elevated LFTs Acute
[2018-11-06] MEDS: SERTRALINE HCL 100 MG TAB PO SCH (12:17)
[2018-11-06] MEDS: CARVEDILOL 6.25 MG TAB PO SCH ×2 (12:17→17:19)
[2018-11-06] MEDS: LISINOPRIL 10 MG TAB PO SCH (12:18)
[2018-11-06] MEDS: GABAPENTIN 300 MG CAP PO SCH ×3 (12:18→22:07)
[2018-11-06] MEDS: CALCIUM ACETATE 667 MG CAP PO SCH ×3 (12:20→22:07)
--- NOTE | 2018-11-06 13:53 | HOSPPROG ---
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 - cont oxy and norco PO as tolerated - his goal is dc on Sat or Saturday # ESRD - normally MWF - s/p HD today, plan short run tomorrow (he declined HD yesterday) # DM - glucs ok - SSI lispro - hold glipizide # htn - lisino, coreg # CAD s/p CABG - restart asa in a few days, cont statin Subjective: still having pain in R leg but better today Objective: Vital Signs Temp Pulse Resp BP Pulse Ox 36.9 C 85 18 155/92 H 95 11/06/18 11:58 11/06/18 11:58 11/06/18 11:58 11/06/18 11:58 11/06/18 11:58 Laboratory Results 11/05/18 08:55 11/05/18 08:55 11/05/18 11/06/18 11/07/18 05:59 05:59 05:59 Intake Total 2049 950 Output Total 850 Balance 2049 100 high risk on IV morphine - Physical Exam Constitutional: unkempt Cardiovascular: regular rate and rhythym, no murmur, rub, or gallop Respiratory: no respiratory distress, no rales or rhonchi, clear to auscultation Gastrointestinal: soft, non-tender abdomen, no palpable masses, No guarding, No rebound, No distension Musculoskeletal: other (L leg in surgical dressing) ICD10 Worksheet Patient Problems: Problems Problem Status Onset Diabetic ulcer of left foot associated with secondary diabetes mellitus Acute Decubitus ulcer of foot, stage 3 Acute ESRD on dialysis Acute Elevated LFTs Acute
--- NOTE | 2018-11-06 14:39 | SOAPPROG ---
SOAP Progress Note Assessment/Plan: Assessment: 58 yo male, s/p left bka by dr. cortez on 11/04/18, post op day 2 -continue medicine recs, greatly appreciated. -continue cast care -oob as tolerated -incentive spirometry -cont iv & po pain med management, encouraged patient to wean off of IV pain pump as tolerable -cont pt/ot -dispo pending placement, home vs snf vs rehab Subjective: reed denies any problems overnight other than sleeping in hospital with alarm bells/distractions, pain can be difficult at times, reprots he is using less pain pump and knows "he has to wean himself off". denies cp/sob/difficulty breathing. denies fevers/chills denies n/v voiding and moving bowels w/o complaints Objective: patient resting comfortable in chair w/ LLE cast resting up on wheel chair in front of him, appears in no acute distress LLE: cast c/d/i without signs of breakdown or drainage Vital Signs Temp Pulse Resp BP Pulse Ox 36.9 C 85 18 155/92 H 95 11/06/18 11:58 11/06/18 11:58 11/06/18 11:58 11/06/18 11:58 11/06/18 11:58 Laboratory Results 11/05/18 08:55 11/05/18 08:55 11/05/18 11/06/18 11/07/18 05:59 05:59 05:59 Intake Total 2049 950 Output Total 850 Balance 2049 100 ICD10 Worksheet Patient Problems: Problems Problem Status Onset Decubitus ulcer of foot, stage 3 Acute Diabetic ulcer of left foot associated with secondary diabetes mellitus Acute ESRD on dialysis Acute Elevated LFTs Acute
[2018-11-06] MEDS: HYDROCODONE/APAP 5/325 TAB PO PRN (22:05)
[2018-11-06] MEDS: traZODone 50 MG TAB PO SCH (22:06)
[2018-11-06] MEDS: ATORVASTATIN CALCIUM 40 MG TAB PO SCH (22:06)
[2018-11-07] MEDS: HYDROCODONE/APAP 5/325 TAB PO PRN (05:37)
--- NOTE | 2018-11-07 08:14 | HOSPPROG ---
Hospitalist Progress Note Assessment/Plan: 58 yo male, s/p left BKA by Dr. 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 Add scheduled APAP, PRN oxycodone. Bowel regimen #ESRD - normally MWF # DM - SSI, glipizide # HTN - pain, stress contributing (issue with girlfriend). Lisinopril increased # CAD s/p CABG - restart asa in a few days, cont statin #Leukocytosis: improved #Diet: renal #DVT ppx: SCDs #Disp: inpatient admission for IV opioids, uncontrolled pain Subjective: "pain 8/10". Normal pain at home 6 Objective: Vital Signs Temp Pulse Resp BP Pulse Ox 36.8 C 72 16 177/81 H 98 11/07/18 04:00 11/07/18 04:00 11/07/18 04:00 11/07/18 04:00 11/07/18 04:00 Laboratory Results 11/05/18 08:55 11/07/18 04:57 11/06/18 11/07/18 11/08/18 05:59 05:59 05:59 Intake Total 950 700 Output Total 850 575 Balance 100 125 - Time Spent With Patient Time Spent with Patient: greater than 35 minutes Time Spent with Patient: Greater than 35 minutes spent on this patients care, greater than 50% of time spent counseling, educating, and coordinating care regarding the above mentioned plan. - Physical Exam Constitutional: uncomfortable Eyes: PERRL Ears, Nose, Mouth, Throat: moist mucous membranes Cardiovascular: regular rate and rhythym Respiratory: no respiratory distress Gastrointestinal: normoactive bowel sounds Genitourinary: No wise in urethra Musculoskeletal: other (left BKA) Neurologic: AAOx3, CN II-XII Intact Psychiatric: anxious ICD10 Worksheet Patient Problems: Problems Problem Status Onset Decubitus ulcer of foot, stage 3 Acute Diabetic ulcer of left foot associated with secondary diabetes mellitus Acute ESRD on dialysis Acute Elevated LFTs Acute
--- NOTE | 2018-11-07 09:27 | SOAPPROG ---
SOAP Progress Note Assessment/Plan: Assessment/Plan: ESRD: on HD MWF, dialyzed yesterday off schedule. - Pt seen on HD today. - Next HD due Saturday. HTN: BP above goal but also in pain. Will increase lisinopril. AMADOR: continue phos binder. Anemia: Hgb 11.6, no need for epo. Subjective: No acute events overnight. He is trying to wean down his opiate needs so that he can be discharged by tomorrow. He is on HD this am and tolerating well. Objective: Vital Signs Temp Pulse Resp BP Pulse Ox 36.8 C 72 16 177/81 H 98 11/07/18 04:00 11/07/18 04:00 11/07/18 04:00 11/07/18 04:00 11/07/18 04:00 Laboratory Results 11/05/18 08:55 11/07/18 04:57 11/06/18 11/07/18 11/08/18 05:59 05:59 05:59 Intake Total 950 700 Output Total 850 575 Balance 100 125 General: alert and oriented, no acute distress OP: Clear CV: RRR Resp: nonlabored respirations Abd: Soft, NT Ext: no edema RLE Neuro: no asterixis Psych: cooperative Access: RIJ tunneled catheter ICD10 Worksheet Patient Problems: Problems Problem Status Onset Decubitus ulcer of foot, stage 3 Acute Diabetic ulcer of left foot associated with secondary diabetes mellitus Acute ESRD on dialysis Acute Elevated LFTs Acute
[2018-11-07] MEDS: GABAPENTIN 300 MG CAP PO SCH ×3 (10:06→20:13)
[2018-11-07] MEDS: SERTRALINE HCL 100 MG TAB PO SCH (10:07)
[2018-11-07] MEDS: LISINOPRIL 20 MG TAB PO SCH (10:07)
[2018-11-07] MEDS: CARVEDILOL 6.25 MG TAB PO SCH ×2 (10:07→18:31)
[2018-11-07] MEDS: LISINOPRIL 10 MG TAB PO SCH (10:17)
[2018-11-07] MEDS: morphINE PCA 30 MG/30 ML PCA IV PRN (10:32)
[2018-11-07] MEDS ORDERED: GABAPENTIN 300 MG CAP PO SCH (10:58)
[2018-11-07] MEDS ORDERED: HEPARIN 50,000 UNIT/10 ML VIAL ONE (11:00)
[2018-11-07] MEDS: INSULIN LISPRO 100 UNIT/ML SC SCH ×3 (11:04→18:32)
[2018-11-07] MEDS ORDERED: POLYETHYLENE GLYCOL 3350 17 GM PKT PO PRN (11:05)
[2018-11-07] MEDS ORDERED: MAGNESIUM HYDROXIDE 30 ML UDCUP PO PRN (11:05)
[2018-11-07] MEDS ORDERED: BISACODYL 10 MG SUPP PR PRN (11:05)
[2018-11-07] MEDS ORDERED: LACTULOSE 20 GM/30 ML UDCUP PO PRN (11:05)
[2018-11-07] MEDS: CALCIUM ACETATE 667 MG CAP PO SCH ×3 (11:42→19:15)
[2018-11-07] MEDS: ACETAMINOPHEN 500 MG TAB PO SCH (14:31)
[2018-11-07] MEDS: busPIRone 15 MG TAB PO PRN (14:36)
--- NOTE | 2018-11-07 15:49 | ASMTCMCOM ---
CM Note CM Note Notes: Pt is overwhelmed and emotional today, reporting he found out his partner of 12 years Jaleesa just told him she plans to leave him and due to this he may be homeless. Pt states he and Jaleesa share the expenses at the home in [place] but it is her home. Pt does not know if he will be able to d/c to his home, he says he does not want to ask Jaleesa today. Pt states his usp plan is to move to [facility] to reside with his dghtr and grandchildren. Pt has limited support system in [place], reporting there are no friend/family to stay with local. Pt states if he cannot return to his home he shares with Jaleesa then "worse case scenario" he will live in his camper. Pt verbalizes he is not in a problem-solving mode today and agrees this CM can meet with him tomorrow. CM to follow. Date Signed: 11/07/2018 03:48 PM Electronically Signed By:DALLAS Ardon
[2018-11-07] MEDS ORDERED: hydrALAZINE 20 MG/ML VIAL IVP PRN (17:23)
--- NOTE | 2018-11-07 19:06 | SOAPPROG ---
SOAP Progress Note Assessment/Plan: Assessment: S/P L BKA Pain despite femoral n. block Taking IV + po meds Robson po Cast intact, well fitting Drain D/Peterson Plan: Con't pain med regimen OOB as robson Dispo pending progress (home vs SNF vs rehab) 11/05/18 05:39 11/07/18 19:04 Pain improving Use of MS decreasing Robson po Cast intact, proper fit No D/C Con't OOB/PT Con't wean Analgesics Dispo pending D/C planning and patient progress Objective: Vital Signs Temp Pulse Resp BP Pulse Ox 36.8 C 74 18 169/89 H 97 11/07/18 15:27 11/07/18 17:54 11/07/18 15:27 11/07/18 17:54 11/07/18 17:54 Laboratory Results 11/05/18 08:55 11/07/18 04:57 11/06/18 11/07/18 11/08/18 05:59 05:59 05:59 Intake Total 950 700 Output Total 850 575 450 Balance 100 125 -450 ICD10 Worksheet Patient Problems: Problems Problem Status Onset Decubitus ulcer of foot, stage 3 Acute Diabetic ulcer of left foot associated with secondary diabetes mellitus Acute ESRD on dialysis Acute Elevated LFTs Acute
[2018-11-07] MEDS: ATORVASTATIN CALCIUM 40 MG TAB PO SCH (20:12)
[2018-11-07] MEDS: traZODone 50 MG TAB PO SCH (20:13)
[2018-11-07] MEDS: SENNOSIDES/DOCUSATE SODIUM TAB PO SCH (20:13)
[2018-11-07] MEDS: oxyCODONE IR 5 MG TAB PO PRN (21:09)
[2018-11-08] MEDS: ACETAMINOPHEN 500 MG TAB PO SCH ×4 (00:29→21:11)
[2018-11-08] MEDS: oxyCODONE IR 5 MG TAB PO PRN ×4 (08:10→21:11)
[2018-11-08] MEDS: SERTRALINE HCL 100 MG TAB PO SCH (08:11)
[2018-11-08] MEDS: CALCIUM ACETATE 667 MG CAP PO SCH ×3 (08:11→17:06)
[2018-11-08] MEDS: GABAPENTIN 300 MG CAP PO SCH ×3 (08:12→21:12)
[2018-11-08] MEDS: CARVEDILOL 6.25 MG TAB PO SCH ×2 (08:12→17:06)
[2018-11-08] MEDS: SENNOSIDES/DOCUSATE SODIUM TAB PO SCH ×2 (08:13→21:12)
[2018-11-08] MEDS: LISINOPRIL 20 MG TAB PO SCH (08:13)
[2018-11-08] MEDS: INSULIN LISPRO 100 UNIT/ML SC SCH ×3 (08:15→18:49)
--- NOTE | 2018-11-08 09:02 | SOAPPROG ---
SOAP Progress Note Assessment/Plan: Assessment: S/P L BKA Pain despite femoral n. block Taking IV + po meds Robson po Cast intact, well fitting Drain D/Peterson Plan: Con't pain med regimen OOB as robson Dispo pending progress (home vs SNF vs rehab) 11/05/18 05:39 11/07/18 19:04 Pain improving Use of MS decreasing Robson po Cast intact, proper fit No D/C Con't OOB/PT Con't wean Analgesics Dispo pending D/C planning and patient progress 11/08/18 09:00 Pain con't to slowly improve Off IV Cast intact, no D/C, fitting well Dispo pending. Patient with strong preference for home with home health aid Objective: Vital Signs Temp Pulse Resp BP Pulse Ox 36.8 C 68 18 190/84 H 94 11/08/18 08:00 11/08/18 08:00 11/08/18 08:00 11/08/18 08:00 11/08/18 08:00 Laboratory Results 11/08/18 04:43 11/08/18 04:43 11/07/18 11/08/18 11/09/18 05:59 05:59 05:59 Intake Total 700 Output Total 575 850 Balance 125 -850 ICD10 Worksheet Patient Problems: Problems Problem Status Onset Decubitus ulcer of foot, stage 3 Acute Diabetic ulcer of left foot associated with secondary diabetes mellitus Acute ESRD on dialysis Acute Elevated LFTs Acute
[2018-11-08] MEDS: LORazepam 1 MG TAB PO PRN ×2 (12:49→19:16)
--- NOTE | 2018-11-08 13:12 | SOAPPROG ---
SOAP Progress Note Assessment/Plan: Assessment: 1. esrd: hd on mwf schedule, outpt clinic [facility]. Next hd Saturday, presumably as outpt. 2. htn: lisinopril increased yesterday 3. LE infection: now s/p L bka and doing well. 4. dispo: home any time from renal perspective. Plan: 11/08/18 13:10 Subjective: Feels well, pain controlled on po meds. Hoping to go home in next 24hrs. Objective: Vital Signs Temp Pulse Resp BP Pulse Ox 36.9 C 72 16 180/77 H 94 11/08/18 11:41 11/08/18 11:41 11/08/18 11:41 11/08/18 11:41 11/08/18 11:41 Laboratory Results 11/08/18 04:43 11/08/18 04:43 11/07/18 11/08/18 11/09/18 05:59 05:59 05:59 Intake Total 700 Output Total 574 470 603 Balance 125 -850 -800 Physical Exam - Physical Exam General Appearance: no apparent distress Respiratory: decreased breath sounds Cardiac/Chest: regular rate, rhythm Abdomen: soft Extremities: pedal edema (none), other (+L bka) ICD10 Worksheet Patient Problems: Problems Problem Status Onset Decubitus ulcer of foot, stage 3 Acute Diabetic ulcer of left foot associated with secondary diabetes mellitus Acute ESRD on dialysis Acute Elevated LFTs Acute
--- NOTE | 2018-11-08 14:30 | HOSPPROG ---
Hospitalist Progress Note Assessment/Plan: 58 yo male, s/p left BKA by Dr. Patel on 11/04/18, post op day 3 #Left BKA -OOB as tolerated -pain controlled on orals -bowel regimen #ESRD - normally MWF, next Saturday # DM - SSI, glipizide # HTN - pain, stress contributing (issue with girlfriend). Lisinopril increased # CAD s/p CABG - restart asa in a few days, cont statin #Leukocytosis: improved #Diet: renal #DVT ppx: SCDs #Disp: ok to DC home from medicine standpoint now that pain controlled Subjective: very tearful. Girlfriend moved out last night. Pain controlled on orals Objective: Vital Signs Temp Pulse Resp BP Pulse Ox 36.9 C 72 16 180/77 H 94 11/08/18 11:41 11/08/18 11:41 11/08/18 11:41 11/08/18 11:41 11/08/18 11:41 Laboratory Results 11/08/18 04:43 11/08/18 04:43 11/07/18 11/08/18 11/09/18 05:59 05:59 05:59 Intake Total 700 Output Total 575 850 800 Balance 462 -850 -800 - Time Spent With Patient Time Spent with Patient: greater than 35 minutes Time Spent with Patient: Greater than 35 minutes spent on this patients care, greater than 50% of time spent counseling, educating, and coordinating care regarding the above mentioned plan. - Physical Exam Constitutional: other (tearful) Eyes: PERRL Ears, Nose, Mouth, Throat: moist mucous membranes Cardiovascular: regular rate and rhythym Respiratory: no respiratory distress Gastrointestinal: normoactive bowel sounds Musculoskeletal: other (left BKA) Neurologic: AAOx3, CN II-XII Intact Psychiatric: interacting appropriately, anxious ICD10 Worksheet Patient Problems: Problems Problem Status Onset Decubitus ulcer of foot, stage 3 Acute Diabetic ulcer of left foot associated with secondary diabetes mellitus Acute ESRD on dialysis Acute Elevated LFTs Acute
--- NOTE | 2018-11-08 14:34 | ASMTCMCOM ---
CM Note CM Note Notes: Pt states he will d/c home tomorrow. Pt reports his partner Jaleesa will be out of town for approx 5 weeks so he will have the home to himself and after 5 weeks pt is not sure what will happen. 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 to reside with his dghtr. Pt has transportation home arranged tomorrow. Pt has also arranged for someone to be with him at home. Pt reports he has food at home. Pt states he plans to return to dialysis Saturday or Saturday. Home care order will be needed at d/c so pt can have continued care with [facility]. D/c plan of care: Home with [facility] RN Date Signed: 11/08/2018 02:33 PM Electronically Signed By:DALLAS Ardon
[2018-11-08] MEDS: traZODone 50 MG TAB PO SCH (21:12)
[2018-11-08] MEDS: ATORVASTATIN CALCIUM 40 MG TAB PO SCH (21:12)
[2018-11-09] MEDS: ACETAMINOPHEN 500 MG TAB PO SCH (06:02)
[2018-11-09] MEDS: oxyCODONE IR 5 MG TAB PO PRN ×3 (06:02→13:34)
[2018-11-09] MEDS: LISINOPRIL 20 MG TAB PO SCH (07:48)
[2018-11-09] MEDS: SERTRALINE HCL 100 MG TAB PO SCH (07:48)
[2018-11-09] MEDS: CALCIUM ACETATE 667 MG CAP PO SCH ×2 (07:49→12:35)
[2018-11-09] MEDS: CARVEDILOL 6.25 MG TAB PO SCH (07:49)
[2018-11-09] MEDS: GABAPENTIN 300 MG CAP PO SCH (07:49)
[2018-11-09] MEDS: SENNOSIDES/DOCUSATE SODIUM TAB PO SCH (07:49)
[2018-11-09] MEDS: INSULIN LISPRO 100 UNIT/ML SC SCH ×2 (08:05→12:37)
--- NOTE | 2018-11-09 11:17 | HOSPPROG ---
Hospitalist Progress Note Assessment/Plan: 58 yo male, s/p left BKA by Dr. Patel on 11/04/18, post op day 3 #Left BKA -OOB as tolerated -pain controlled on orals -bowel regimen, having BMs #ESRD - normally MWF, outpatient HD tomorrow # DM - SSI, glipizide # HTN - pain, stress contributing (issue with girlfriend). Lisinopril increased # CAD s/p CABG - restart asa in a few days, cont statin #Leukocytosis: improved #Diet: renal #DVT ppx: SCDs #Disp: ok to DC home from medicine standpoint now that pain controlled Subjective: pain controlled with oxy Objective: Vital Signs Temp Pulse Resp BP Pulse Ox 36.5 C 73 18 175/90 H 91 L 11/09/18 07:23 11/09/18 07:23 11/09/18 07:23 11/09/18 07:23 11/09/18 07:23 Laboratory Results 11/08/18 04:43 11/09/18 06:44 11/08/18 11/09/18 11/10/18 05:59 05:59 05:59 Output Total 850 1200 500 Balance -850 -1200 -500 - Time Spent With Patient Time Spent with Patient: greater than 25 minutes Time Spent with Patient: Greater than 25 minutes spent on this patients care, greater than 50% of time spent counseling, educating, and coordinating care regarding the above mentioned plan. - Physical Exam Constitutional: no apparent distress Eyes: PERRL Ears, Nose, Mouth, Throat: moist mucous membranes Cardiovascular: regular rate and rhythym Respiratory: no respiratory distress Gastrointestinal: normoactive bowel sounds Skin: warm Musculoskeletal: other (left BKA) Neurologic: AAOx3, CN II-XII Intact Psychiatric: interacting appropriately ICD10 Worksheet Patient Problems: Problems Problem Status Onset Decubitus ulcer of foot, stage 3 Acute Diabetic ulcer of left foot associated with secondary diabetes mellitus Acute ESRD on dialysis Acute Elevated LFTs Acute
--- NOTE | 2018-11-09 11:45 | SOAPPROG ---
SOAP Progress Note Assessment/Plan: Assessment: 1. esrd: hd on mwf schedule, outpt clinic is [facility]. Next hd tomorrow, presumably as outpt. 2. htn: lisinopril increased Saturday 3. LE infection: now s/p L bka and doing well. 4. dispo: presumably home today. Plan: 11/08/18 13:10 11/09/18 11:43 Subjective: Eager to go home. Pain controlled. Objective: Vital Signs Temp Pulse Resp BP Pulse Ox 36.5 C 73 18 175/90 H 91 L 11/09/18 07:23 11/09/18 07:23 11/09/18 07:23 11/09/18 07:23 11/09/18 07:23 Laboratory Results 11/08/18 04:43 11/09/18 06:44 11/08/18 11/09/18 11/10/18 05:59 05:59 05:59 Output Total 850 1200 500 Balance -850 -1200 -500 Physical Exam - Physical Exam General Appearance: no apparent distress Respiratory: lungs clear Cardiac/Chest: regular rate, rhythm Abdomen: soft Extremities: pedal edema (none) ICD10 Worksheet Patient Problems: Problems Problem Status Onset Decubitus ulcer of foot, stage 3 Acute Diabetic ulcer of left foot associated with secondary diabetes mellitus Acute ESRD on dialysis Acute Elevated LFTs Acute
[2018-11-09 11:55] VITALS: BP 189/92
--- NOTE | 2018-11-09 12:32 | SOAPPROG ---
SOAP Progress Note Assessment/Plan: Assessment: S/P L BKA Pain despite femoral n. block Taking IV + po meds Robson po Cast intact, well fitting Drain D/Peterson Plan: Con't pain med regimen OOB as robson Dispo pending progress (home vs SNF vs rehab) 11/05/18 05:39 11/07/18 19:04 Pain improving Use of MS decreasing Robson po Cast intact, proper fit No D/C Con't OOB/PT Con't wean Analgesics Dispo pending D/C planning and patient progress 11/08/18 09:00 Pain con't to slowly improve Off IV Cast intact, no D/C, fitting well Dispo pending. Patient with strong preference for home with home health aid 11/09/18 12:31 Pain controlled on po meds medically stable robson po cast intact. well fitting D/C home with home health RN Objective: Vital Signs Temp Pulse Resp BP Pulse Ox 36.8 C 68 16 189/92 H 98 11/09/18 11:54 11/09/18 11:54 11/09/18 11:54 11/09/18 11:54 11/09/18 11:54 Laboratory Results 11/08/18 04:43 11/09/18 06:44 11/08/18 11/09/18 11/10/18 05:59 05:59 05:59 Output Total 850 1200 500 Balance -850 -1200 -500 ICD10 Worksheet Patient Problems: Problems Problem Status Onset Decubitus ulcer of foot, stage 3 Acute Diabetic ulcer of left foot associated with secondary diabetes mellitus Acute ESRD on dialysis Acute Elevated LFTs Acute
--- NOTE | 2018-11-09 12:34 | PDIAF ---
- Diagnosis Code Status: Full Code - Medication Management Discharge Medications: electronically signed and located in the Home Medication List. - Orders Services needed: Registered Nurse Diet Recommendation: no restrictions on diet Diet Texture: Regular Texture Diet Wound Care Instructions: leave cast intact. keep clean, dry Activity/Weight Bearing Restrictions: Non weight bearing left leg - Follow Up Care Current Providers and Referrals: Jose Carlos Patel MD [Medical Doctor] - Finn Fisher MD [Primary Care Provider] -
--- NOTE | 2018-11-09 13:38 | ASMTDCNOTE ---
Case Management Discharge Discharge Order Complete? Answers: Yes Patient to Obtain Answers: Independently Medications Transportation Arranged Answers: Family/Friends Faxed Final Orders Answers: Yes Agency/Facility Transfer Answers: Yes Report Printed & Faxed to Receiving Agency Discharge Comments Notes: D/w , final orders faxed. Samaria at [facility] notified. Date Signed: 11/09/2018 01:37 PM Electronically Signed By:Elvira Lazcano RN
--- NOTE | 2018-11-09 14:44 | GDS ---
[f rep st] DISCHARGE SUMMARY ADMISSION DIAGNOSIS: Left lower leg infection. DISCHARGE DIAGNOSIS: Left lower leg infection. OPERATIONS PERFORMED: Left below-knee amputation. CONSULTATIONS: Hospitalist, physical therapy and caser. HISTORY OF PRESENT ILLNESS: The patient is a 58-year-old with diabetes with multiple attempts at "li mb salvage." Despite this, he had continued non viability of his distal limb with infection present. It was felt that a below-knee amputation was warranted at this time. HOSPITAL COURSE: The patient was admitted for the aforementioned operative procedure. He was taken to med/surg floor in stable condition postoperatively. Pain was initially controlled with femoral ne rve block and IV analgesics and transitioned to oral analgesics as his pain leveled out. He progress ed favorably in his wheelchair ambulation. On the day of discharge, he was felt to be in satisfactor y condition for discharge home. The patient was adamant of not going to a alf facility. He had home health aide and home nursing arranged and was essentially at the same activity level aft er this operation as he had been prior to this operation. DISCHARGE DISPOSITION: Discharged home. Diet regular. Activity nonweightbearing on his operative e xtremity. He is to keep his cast clean, dry, and intact. Followup would be in approximately 1 week. /[id number]/MODL
--- NOTE | 2018-11-09 16:51 | ASDISCHSUM ---
Discharge Information Plan Status:Home with Home Health Medically Cleared to Leave: Discharge Date:11/09/2018 01:35 PM CM D/C Disposition:Home Health Service ADT D/C Disposition:Home, Routine, Self-Care Projected Discharge Date:11/07/2018 11:00 AM Transportation at D/C:Friend Discharge Delay Reason: Follow-Up Date:11/07/2018 11:00 AM Discharge Slot: Final Diagnosis: Placement Information Referral Type:*Home Health Care Services Referral ID:[id number] Provider Name:[facility] Address 1:[address] [address] Address 2: City:[place] Selection Factors: State:[place] Patient Contact Information Contact Name:GMMONAJayjay Relationship:Other Address:[address] Work Phone: [facility] [place] Alternate Phone: State/Zip Code:[place] [address] Email: Financial Information Financial Class:Medicare Primary Plan Desc:MEDICARE INPATIENT Primary Plan Number:[id number] Secondary Plan Desc: Secondary Plan Number: Assessment Information LACE LACE Acuity / Level of Answers: Yes Care: Did the patient have an inpatient admission? Comorbidities - select Answers: Cerebrovascular disease all that apply (CVA, TIA, aneurysms, vasc ular dementia) Chronic pulmonary disease Congestive heart failure Coronary Artery Disease Diabetes (uncontrolled or controlled) Moderate or severe liver or renal disease Peripheral vascular disease Other Notes: HTN # of Emergency department Answers: 1-2 visits in the last 6 months Score: 18 Date Signed: 11/05/2018 12:17 PM Electronically Signed By:Kathi Limon [facility] CM Progress Note CM Note CM Note Notes: Pt with numerous co-morbidities including COPD, ESRD, CAD, HTN, diabetes, depression is s/p L BKA. Pt known to [facility] and with regards to current situation pt states "everything is the same." Pt still has [facility], goes to [facility] for MWF dialysis and resides with friend Jaleesa. OT/PT clear pt for home. Pt has DME. D/c plan: Pt will d/c with resumption of care with [facility] Date Signed: 11/05/2018 04:00 PM Electronically Signed By:DALLAS Ardon [facility] CM Progress Note CM Note CM Note Notes: Pt is overwhelmed and emotional today, reporting he found out his partner of 12 years Jaleesa just told him she plans to leave him and due to this he may be homeless. Pt states he and Jaleesa share the expenses at the home in [place] but it is her home. Pt does not know if he will be able to d/c to his home, he says he does not want to ask Jaleesa today. 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 Pt has limited support system in [place], reporting there are no friend/family to stay with local. Pt states if he cannot return to his home he shares with Jaleesa then "worse case scenario" he will live in his camper. Pt verbalizes he is not in a problem-solving mode today and agrees this CM can meet with him tomorrow. CM to follow. Date Signed: 11/07/2018 03:48 PM Electronically Signed By:DALLAS Ardon [facility] CM Progress Note CM Note CM Note Notes: Pt states he will d/c home tomorrow. Pt reports his partner Jaleesa will be out of town for approx 5 weeks so he will have the home to himself and after 5 weeks pt is not sure what will happen. Pt nursing home plan is to go to [facility] to reside with his dghtr. Pt has transportation home arranged tomorrow. Pt has also arranged for someone to be with him at home. Pt reports he has food at home. Pt states he plans to return to dialysis Saturday or Saturday. Home care order will be needed at d/c so pt can have continued care with [facility] RN. D/c plan of care: Home with [facility] RN Date Signed: 11/08/2018 02:33 PM Electronically Signed By:DALLAS Ardon Case Management Discharge Plan Note Case Management Discharge Discharge Order Complete? Answers: Yes Patient to Obtain Answers: Independently Medications Transportation Arranged Answers: Family/Friends Faxed Final Orders Answers: Yes Agency/Facility Transfer Answers: Yes Report Printed & Faxed to Receiving Agency Discharge Comments Notes: Melo MEADE, final orders faxed. Samaria garcia [facility] notified. Date Signed: 11/09/2018 01:37 PM Electronically Signed By:Elvira Lazcano RN Intervention Information
--- NOTE | 2018-11-13 14:58 | PQFORM ---
PHYSICIAN QUERY FORM Needs Your Response This query form is being sent to you to assure this patient record is coded properly. Please respond to the question below: PIANO REFINISHER QUESTION: Dr Patel Chart documentation is not consistent as to the reason for this patients leg amputation. Please clarify whether the patient's amputation was for: ___ Diabetes with Osteomyelitis ___ Non healing op wound ___ Diabetes with skin ulcer ___ Other (Please Specify ) ___ Unable to determine Thank You Shaneka [place] Wire Drawer INSTRUCTIONS FOR RESPONSE: Answer question by clicking on the "Edit Document" button. Move cursor to area below the stars. When complete, hit "Save." Click on the "Sign" button, then click "Sign" again. Type in your PIN and hit "Enter." MTDD
== END 2018-11-09 13:35 | disposition home or self-care (01) | DRG 474 ==
LOC: F3N 13:31 → EEVIPCON 16:45 → F3E 19:50
PROVIDERS: ADMIT Orthopaedic Surgery Foot and Ankle Surgery; ATTEND Orthopaedic Surgery Foot and Ankle Surgery
PROC: 0Y6J0Z1 Detachment at Left Lower Leg, High, Open Approach (ICD-10-PCS; principal; 2018-11-04 16:45)
PROC: 5A1D70Z Performance of Urinary Filtration, Intermittent, Less than 6 Hours Per Day (ICD-10-PCS; 2018-11-07)
DX: T87.44 Infection of amputation stump, left lower extremity (principal); E11.22 Type 2 diabetes mellitus with diabetic chronic kidney disease; N18.6 End stage renal disease; I25.10 Atherosclerotic heart disease of native coronary artery without angina pectoris; J44.9 Chronic obstructive pulmonary disease, unspecified; I25.2 Old myocardial infarction; Z86.73 Personal history of transient ischemic attack (TIA), and cerebral infarction without residual deficits; Z95.1 Presence of aortocoronary bypass graft; Z99.2 Dependence on renal dialysis
CPT/HCPCS: 97161-GP; 97165-GO; J0690; J1170; J1644; J2250; J2270; J2704; J2795; J2997; J3010

== ENCOUNTER 2018-12-06 16:56 | Emergency (ER) | payer OTHER | END 2018-12-06 18:37 | disposition home or self-care (01) ==